=== PATIENT | female | born 1990 | race Caucasian/White ===

== ENCOUNTER 2017-08-25 15:03 | Emergency (ER) | payer SELFPAY ==
[~2017-08-25] VITALS: Ht 162.6 cm; Wt 52.2 kg
[~2017-08-25 15:03] MED LIST: ACET325T38 PO; AGM875T PO; CEFU500T PO; CEPH-38 PO; CEPH500C PO; CETI10CA PO; FRS325T PO; HYDR-3729 PO; IBP600T1 PO; MULT-241 PO; ONDA-42 SL; PREN1TAB19 PO; PROG50VI3 IM; SULF1TAB35 PO
--- OUTSIDE RECORDS SUMMARY | 2017-08-25 15:08 | XMS REPORT ---
Author JIMBO Urena Organization [employer] Address Unknown Phone Unavailable Care Team Providers Care Resolution Manager Name Role Phone JIMBO LAGOS CP Unavailable Allergies, Adverse Reactions, Alerts Substance Reaction Event Type Nitrofurantoin Info Not Available Drug Allergy Problems Problem Type Condition Code Onset Dates Condition Status Assessment Allergic rhinitis, unspecified allergic rhinitis type J30.9 Active Medications Medication Code System Code Instructions Start Date End Date Status Dosage Mirena [facility] [address]-99 not defined Flonase Allergy Relief [facility] [address]-38 50 MCG/ACT Nasally Once a day February 13, 2016 1 spray in each nostril Procedures Procedure Coding System Code Date Office Visit, Est Pt., Level 3 CPT-4 98386 February 13, 2016 Vital Signs Date/Time: February 13, 2016 Cardiac Monitoring Heart Rate 80 bpm Weight 105.4 lbs Height 64 in Blood Pressure Diastolic 60 mmHg Blood Pressure Systolic 98 mmHg Results No Known Results Summary Purpose eClinicalWorks Submission
--- OUTSIDE RECORDS SUMMARY | 2017-08-25 15:08 | XMS REPORT ---
Author Author ROME ELIZABETH Organization [facility] Address [address] [place] [address] Care Team Providers Care Lumber Kiln Operator Name Role Phone PETERELIZABETH Sainz Unavailable PROBLEMS Type Condition ICD9-CM Code OFA32-LW Code Onset Dates Condition Status SNOMED Code Problem Seasonal allergic rhinitis due to pollen J30.1 Active 40276132 Problem Dorsalgia of lumbar region M54.5 Active 687215350 Problem Cough R05 Active 65458731 Assessment Dorsalgia of lumbar region M54.5 May, Active 463838588 ALLERGIES Substance Reaction Event Type Date Status Nitrofurantoin Unknown Drug Allergy May, Active SOCIAL HISTORY No smoking Hx information available PLAN OF CARE VITAL SIGNS Height 64 in 2016-06-12 Weight 107.8 lbs 2016-06-12 Heart Rate 72 bpm 2016-06-12 Respiratory Rate 18 2016-06-12 BMI 18.50 kg/m2 2016-06-12 Blood pressure systolic 119 mmHg 2016-06-12 Blood pressure diastolic 78 mmHg 2016-06-12 MEDICATIONS Medication Instructions Dosage Frequency Start Date End Date Duration Status Ibuprofen 800 MG Orally Three times a day 1 tablet 8h 29 Mar, 2016 Active Flonase Allergy Relief 50 MCG/ACT Nasally Once a day 1 spray in each nostril 24h Jan, 7 days Active Mirena Active RESULTS No Results PROCEDURES Procedure Date Ordered Related Diagnosis Body Site Office Visit, Est Pt., Level 3 Jun 12, 2016 IMMUNIZATIONS No Known Immunizations
--- OUTSIDE RECORDS SUMMARY | 2017-08-25 15:08 | XMS REPORT ---
Author Author MICHAEL DUARTE Organization [employer] Address Unknown Phone Unavailable Care Team Providers Care Cloth Checker Name Role Phone MICHAEL DUARTE CP Unavailable Allergies, Adverse Reactions, Alerts Substance Reaction Event Type Nitrofurantoin Info Not Available Drug Allergy Problems Problem Type Condition Code Onset Dates Condition Status Problem examination or test, positive result V72.42 Active Problem Screening examination for venereal disease V74.5 Active Problem Other drug allergy 995.27 Active Assessment Dental caries K02.9 Active Assessment Encounter for dental examination Z01.20 Active Problem Unspecified otitis media 382.9 Active Problem Other specified symptom associated with female genital organs 625.8 Active Problem Abdominal pain, generalized 789.07 Active Problem Cervicalgia 723.1 Active Problem Supervision of normal first V22.0 Active Problem Urinary tract infection, site not specified 599.0 Active Problem Lumbago 724.2 Active Medications Medication Code System Code Instructions Start Date End Date Status Dosage Mirena [facility] [address]-33 not defined Procedures Procedure Coding System Code Date INTRAORL-PERIAPICAL 1 FILM 55975 CPT-4 D0220 May 29, 2015 EXTRAC ERUPTED TOOTH/EXPOSED ROOT CPT-4 D7140 May 29, 2015 LTD ORAL EVALUATION - PROBLEM FOCUS CPT-4 D0140 May 29, 2015 Vital Signs Date/Time: May 29, 2015 Blood Pressure Diastolic 73 mmHg Blood Pressure Systolic 106 mmHg Height 64 in Results No Known Results Summary Purpose [employer]ClinicalWorks Submission
--- OUTSIDE RECORDS SUMMARY | 2017-08-25 15:08 | XMS REPORT ---
Author Author JOSEPH MCGILL Organization [employer] Address Unknown Phone Unavailable Care Team Providers Care Disability Aide Name Role Phone JOSEPH MCGILL CP Unavailable Allergies No Known Allergies Problems No Known Problems Medications No Known Medications Results No Known Results Summary Purpose [employer] Submission
--- OUTSIDE RECORDS SUMMARY | 2017-08-25 15:09 | XMS REPORT ---
Author Author TERRIE AL [facility] Address Unknown Care Team Providers Care Remanufacturing Technician Name Role Phone TERRIE AL Unavailable PROBLEMS Type Condition ICD9-CM Code MCK39-HX Code Onset Dates Condition Status SNOMED Code Problem PTSD (post-traumatic stress disorder) F43.10 Active 35776290 Problem Bipolar 1 disorder, mixed, moderate F31.62 Active 89206057 Problem Cough R05 Active 41147200 Problem Seasonal allergic rhinitis due to pollen J30.1 Active 52710576 Problem Dorsalgia of lumbar region M54.5 Active 510566679 ALLERGIES Substance Reaction Event Type Date Status Nitrofurantoin Unknown Drug Allergy Jun, Active SOCIAL HISTORY No smoking Hx information available PLAN OF CARE Activity Details Follow Up 1 Week Reason:TE 13 AND 18 VITAL SIGNS Blood pressure systolic 122 mmHg 2016-07-18 Blood pressure diastolic 80 mmHg 2016-07-18 MEDICATIONS Medication Instructions Dosage Frequency Start Date End Date Duration Status Ibuprofen 800 MG Orally Three times a day 1 tablet 8h Mar, Active Amoxicillin 500 MG Orally Three times a day 1 capsule 8h 7 days Active Mirena Active Flonase Allergy Relief 50 MCG/ACT Nasally Once a day 1 spray in each nostril 24h Jan, 7 days Active RESULTS No Results PROCEDURES Procedure Date Ordered Related Diagnosis Body Site LTD ORAL EVALUATION - PROBLEM FOCUS Jul 18, 2016 INTRAORL-PERIAPICAL 1 FILM 90654 Jul 18, 2016 BITEWINGS - TWO FILMS Jul 18, 2016 INTRAORL-PERIAPICAL EA ADD FILM Jul 18, 2016 IMMUNIZATIONS No Known Immunizations
--- OUTSIDE RECORDS SUMMARY | 2017-08-25 15:09 | XMS REPORT ---
Author Author HANANE CHAWLA [facility] Address [address] [place] [address] Care Team Providers Care Internet Marketer Name Role Phone HANANE CHAWLA Unavailable PROBLEMS Type Condition ICD9-CM Code DFK88-SC Code Onset Dates Condition Status SNOMED Code Problem PTSD (post-traumatic stress disorder) F43.10 Active 92453286 Problem Bipolar 1 disorder, mixed, moderate F31.62 Active 64030612 Problem Cough R05 Active 02090915 Problem Seasonal allergic rhinitis due to pollen J30.1 Active 71701565 Problem Dorsalgia of lumbar region M54.5 Active 009344054 ALLERGIES Substance Reaction Event Type Date Status Nitrofurantoin Unknown Drug Allergy Aug, Active SOCIAL HISTORY Never Assessed PLAN OF CARE Activity Details Follow Up prn Reason: VITAL SIGNS Height 64 in 2016-09-09 Weight 113 lbs 2016-09-09 Temperature 98.1 degrees Fahrenheit 2016-09-09 Heart Rate 86 bpm 2016-09-09 Respiratory Rate 16 2016-09-09 BMI 19.39 kg/m2 2016-09-09 Blood pressure systolic 100 mmHg 2016-09-09 Blood pressure diastolic 70 mmHg 2016-09-09 MEDICATIONS Medication Instructions Dosage Frequency Start Date End Date Duration Status Amoxicillin 500 MG Orally 3 times a day 1 capsule 8h Aug, Aug, 07 days Active Pseudoephedrine HCl 60 mg Orally every 6 hrs 1 tablet as needed 6h Aug, Active Mirena Active Ibuprofen 800 MG Orally Three times a day 1 tablet 8h Aug, November, 90 days Active RESULTS No Results PROCEDURES No Known procedures IMMUNIZATIONS No Known Immunizations MEDICAL (GENERAL) HISTORY Type Description Date Medical History Asthma Medical History Arthritis Medical History back trouble Medical History neck pain Medical History depression Medical History PTSD Medical History bipolar/mood disorder Medical History anxiety Medical History Bulimia Nervosa Hospitalization History childbirth x 2
--- OUTSIDE RECORDS SUMMARY | 2017-08-25 15:09 | XMS REPORT ---
Author Author JACE FISH [facility] Address [address] [place] [address] Care Team Providers Care Agronomy Professor Name Role Phone JACE FISH Unavailable PROBLEMS Type Condition ICD9-CM Code BSW40-DG Code Onset Dates Condition Status SNOMED Code Problem PTSD (post-traumatic stress disorder) F43.10 Active 74819347 Problem Bipolar 1 disorder, mixed, moderate F31.62 Active 31969813 Problem Cough R05 Active 75149327 Problem Seasonal allergic rhinitis due to pollen J30.1 Active 70341080 Problem Dorsalgia of lumbar region M54.5 Active 071797742 ALLERGIES Substance Reaction Event Type Date Status Nitrofurantoin Unknown Drug Allergy Sep, Active SOCIAL HISTORY Never Assessed PLAN OF CARE Activity Details Follow Up prn Reason: VITAL SIGNS Height 64 in 2016-09-27 Weight 107.4 lbs 2016-09-27 Temperature 98.4 degrees Fahrenheit 2016-09-27 Heart Rate 82 bpm 2016-09-27 Respiratory Rate 18 2016-09-27 BMI 18.43 kg/m2 2016-09-27 Blood pressure systolic 108 mmHg 2016-09-27 Blood pressure diastolic 64 mmHg 2016-09-27 MEDICATIONS Medication Instructions Dosage Frequency Start Date End Date Duration Status Ibuprofen 800 MG Orally Three times a day 1 tablet 8h Aug, November, 90 days Active Mirena Active Cetirizine HCl 10 mg Orally Once a day 1 tablet 24h Sep, Active Zofran 8 MG Orally Once a day as needed for nausea 1 tablet Sep, 07 days Active Pseudoephedrine HCl 60 mg Orally every 6 hrs 1 tablet as needed 6h Aug, Active RESULTS Name Result Date Reference Range INFLUENZA A & B (IN HOUSE) 2016-09-27 INFLUENZA A negative INFLUENZA B negative Control + Lot # [id number] Exp date 2018 06 08 PROCEDURES Procedure Date Ordered Result Body Site INFLUENZA ASSAY W/OPTIC September 27, 2016 IMMUNIZATIONS No Known Immunizations MEDICAL (GENERAL) HISTORY Type Description Date Medical History Asthma Medical History Arthritis Medical History back trouble Medical History neck pain Medical History depression Medical History PTSD Medical History bipolar/mood disorder Medical History anxiety Medical History Bulimia Nervosa Hospitalization History childbirth x 2
--- OUTSIDE RECORDS SUMMARY | 2017-08-25 15:09 | XMS REPORT ---
Author Author TERRI GODFREY Organization [employer] Address Unknown Phone Unavailable Care Team Providers Care Professor Of Literature Name Role Phone TERRI GODFREY CP Unavailable Allergies, Adverse Reactions, Alerts Substance Reaction Event Type Nitrofurantoin Info Not Available Drug Allergy Problems Problem Type Condition Code Onset Dates Condition Status Assessment Dorsalgia, unspecified M54.9 Active Assessment Anesthesia of skin R20.0 Active Medications Medication Code System Code Instructions Start Date End Date Status Dosage Flonase Allergy Relief [facility] [address]-04 50 MCG/ACT Nasally Once a day February 13, 2016 1 spray in each nostril Mirena NDC 0 not defined Mobic [facility] [address]-80 7.5 MG Orally twice a day Mar 12, 2016 Apr 11, 2016 1 tablet Procedures Procedure Coding System Code Date Office Visit, Est Pt., Level 3 CPT-4 21128 Mar 12, 2016 Vital Signs Date/Time: Mar 12, 2016 Cardiac Monitoring Heart Rate 72 bpm Weight 98.2 lbs Height 64 in BMI 16.85 Index Blood Pressure Diastolic 56 mmHg Blood Pressure Systolic 94 mmHg Results No Known Results Summary Purpose eClinicalWorks Submission
--- OUTSIDE RECORDS SUMMARY | 2017-08-25 15:09 | XMS REPORT ---
Author Author ELIZABETH PETER Organization [facility] Address [address] [place] [address] Care Team Providers Care Mine Development Engineer Name Role Phone PETER ELIZABETH Unavailable PROBLEMS Type Condition ICD9-CM Code OJD14-QF Code Onset Dates Condition Status SNOMED Code Problem PTSD (post-traumatic stress disorder) F43.10 Active 58513557 Problem Bipolar 1 disorder, mixed, moderate F31.62 Active 86263693 Problem Cough R05 Active 76607834 Problem Seasonal allergic rhinitis due to pollen J30.1 Active 94814174 Problem Dorsalgia of lumbar region M54.5 Active 902149458 ALLERGIES Unknown Allergies SOCIAL HISTORY No smoking Hx information available PLAN OF CARE VITAL SIGNS Height 64 in 2016-08-27 Weight 110 lbs 2016-08-27 Temperature 98.0 degrees Fahrenheit 2016-08-27 Heart Rate 70 bpm 2016-08-27 Respiratory Rate 18 2016-08-27 BMI 18.88 kg/m2 2016-08-27 Blood pressure systolic 124 mmHg 2016-08-27 Blood pressure diastolic 80 mmHg 2016-08-27 MEDICATIONS Medication Instructions Dosage Frequency Start Date End Date Duration Status Ibuprofen 800 MG Orally Three times a day 1 tablet 8h Mar, Active Mirena Active RESULTS No Results PROCEDURES No Known procedures IMMUNIZATIONS No Known Immunizations
--- OUTSIDE RECORDS SUMMARY | 2017-08-25 15:09 | XMS REPORT ---
Author Author MICHAEL DUARTE [facility] [employer] Address Unknown Phone Unavailable Care Team Providers Care Edge Trimming Machine Operator Name Role Phone MICHAEL DUARTE CP Unavailable Allergies, Adverse Reactions, Alerts Substance Reaction Event Type Nitrofurantoin Info Not Available Drug Allergy Problems Problem Type Condition Code Onset Dates Condition Status Assessment Dental caries K02.9 Active Medications Medication Code System Code Instructions Start Date End Date Status Dosage [place] [facility] [address]-35 5-325 MG Orally every 6 hrs February 19, 2016January 1 tablet as needed Flonase Allergy Relief [facility] [address]-47 50 MCG/ACT Nasally Once a day February 13, 2016 1 spray in each nostril Mirena [facility] [address]-29 not defined Procedures Procedure Coding System Code Date EXTRAC ERUPTED TOOTH/EXPOSED ROOT CPT-4 D7140 February 19, 2016 Vital Signs Date/Time: February 19, 2016 Blood Pressure Diastolic 65 mmHg Blood Pressure Systolic 114 mmHg Height 64 in Results No Known Results Summary Purpose eClinicalWorks Submission
--- OUTSIDE RECORDS SUMMARY | 2017-08-25 15:09 | XMS REPORT ---
Author Author ELIZABETH PETER Organization [employer] Address Unknown Phone Unavailable Care Team Providers Care Labor Relations Officer Name Role Phone ELIZABETH PETER CP Unavailable Allergies No Known Allergies Problems No Known Problems Medications Medication Code System Code Instructions Start Date End Date Status Dosage Ibuprofen [facility] [address]-50 800 MG Orally Three times a day Apr 24, 2016 1 tablet Results No Known Results Summary Purpose eClinicalWorks Submission
--- OUTSIDE RECORDS SUMMARY | 2017-08-25 15:09 | XMS REPORT ---
Author Author IRENE Maldonado Organization [facility] Address [address] [place] [address] Care Team Providers Care Smokehouse Worker Name Role Phone Joel IRENE Unavailable PROBLEMS Type Condition ICD9-CM Code RUD16-WK Code Onset Dates Condition Status SNOMED Code Problem PTSD (post-traumatic stress disorder) F43.10 Active 10277574 Problem Bipolar 1 disorder, mixed, moderate F31.62 Active 23552935 Problem Cough R05 Active 71361846 Problem Seasonal allergic rhinitis due to pollen J30.1 Active 80162191 Problem Dorsalgia of lumbar region M54.5 Active 226198386 ALLERGIES No Information SOCIAL HISTORY Never Assessed PLAN OF CARE VITAL SIGNS MEDICATIONS Medication Instructions Dosage Frequency Start Date End Date Duration Status HydrOXYzine HCl 25 MG Orally every 8 hrs 1 tablet as needed 8h November, 30 day(s) Active RESULTS No Results PROCEDURES No Known procedures IMMUNIZATIONS No Known Immunizations MEDICAL (GENERAL) HISTORY Type Description Date Medical History Asthma Medical History Arthritis Medical History back trouble Medical History neck pain Medical History depression Medical History PTSD Medical History bipolar/mood disorder Medical History anxiety Medical History Bulimia Nervosa Hospitalization History childbirth x 2
--- OUTSIDE RECORDS SUMMARY | 2017-08-25 15:09 | XMS REPORT ---
Author Author ROME ELIZABETH Organization [facility] Address [address] [place] [address] Care Team Providers Care Facing Cutting Machine Operator Name Role Phone PETERELIZABETH Sainz Unavailable PROBLEMS Type Condition ICD9-CM Code IQO36-UG Code Onset Dates Condition Status SNOMED Code Problem PTSD (post-traumatic stress disorder) F43.10 Active 87492781 Problem Bipolar 1 disorder, mixed, moderate F31.62 Active 78360247 Problem Cough R05 Active 82464833 Problem Seasonal allergic rhinitis due to pollen J30.1 Active 68130286 Problem Dorsalgia of lumbar region M54.5 Active 408969057 ALLERGIES Substance Reaction Event Type Date Status Nitrofurantoin Unknown Drug Allergy Sep, Active SOCIAL HISTORY Never Assessed PLAN OF CARE Activity Details Follow Up prn Reason: VITAL SIGNS Height 64 in 2016-10-02 Weight 109 lbs 2016-10-02 Temperature 98.2 degrees Fahrenheit 2016-10-02 Heart Rate 90 bpm 2016-10-02 Respiratory Rate 20 2016-10-02 Oximetry 99 % 2016-10-02 BMI 18.71 kg/m2 2016-10-02 Blood pressure systolic 96 mmHg 2016-10-02 Blood pressure diastolic 60 mmHg 2016-10-02 MEDICATIONS Medication Instructions Dosage Frequency Start Date End Date Duration Status Ibuprofen 800 MG Orally Three times a day 1 tablet 8h Aug, November, 90 days Active Azithromycin 250 MG Orally Once a day 2 tablets on the first day, then 1 tablet daily for 4 days 24h Sep, Sep, 5 day(s) Active Mirena Active ProAir HFA 108 (90 Base) MCG/ACT Inhalation every 4 hrs 2 puffs as needed 4h Sep, 10 days Active RESULTS Name Result Date Reference Range Xray : Chest (IN HOUSE) 2016-10-02 PROCEDURES Procedure Date Ordered Result Body Site MEASURE BLOOD OXYGEN LEVEL October 02, 2016 CHEST X-RAY October 02, 2016 IMMUNIZATIONS No Known Immunizations MEDICAL (GENERAL) HISTORY Type Description Date Medical History Asthma Medical History Arthritis Medical History back trouble Medical History neck pain Medical History depression Medical History PTSD Medical History bipolar/mood disorder Medical History anxiety Medical History Bulimia Nervosa Hospitalization History childbirth x 2
--- OUTSIDE RECORDS SUMMARY | 2017-08-25 15:09 | XMS REPORT ---
Author Author ELIZABETH PETER Organization [employer] Address Unknown Phone Unavailable Care Team Providers Care Labor Relations Director Name Role Phone ELIZABETH PETER CP Unavailable Allergies, Adverse Reactions, Alerts Substance Reaction Event Type Nitrofurantoin Info Not Available Drug Allergy Problems Problem Type Condition Code Onset Dates Condition Status Assessment Family history of cancer Z80.9 Active Assessment Pain in thoracic spine M54.6 Active Assessment Routine health maintenance Z00.00 Active Assessment Other chronic pain G89.29 Active Medications Medication Code System Code Instructions Start Date End Date Status Dosage Mirena NDC 0 not defined Ibuprofen [facility] [address]-14 800 MG Orally Three times a day Apr 24, 2016 1 tablet Flonase Allergy Relief [facility] [address]-33 50 MCG/ACT Nasally Once a day February 13, 2016 1 spray in each nostril Procedures Procedure Coding System Code Date Office Visit, Est Pt., Level 3 CPT-4 13002 Apr 24, 2016 Vital Signs Date/Time: Apr 24, 2016 Cardiac Monitoring Heart Rate 80 bpm Weight 108 lbs Height 64 in BMI 18.54 Index Blood Pressure Diastolic 64 mmHg Blood Pressure Systolic 98 mmHg Results No Known Results Summary Purpose eClinicalWorks Submission
--- OUTSIDE RECORDS SUMMARY | 2017-08-25 15:09 | XMS REPORT ---
Author Author PETERNEERAJELIZABETH Organization [facility] Address [address] [place] [address] Care Team Providers Care Storeroom Keeper Name Role Phone PETERNEEARJ SainzELE Unavailable PROBLEMS Type Condition ICD9-CM Code ENR60-YD Code Onset Dates Condition Status SNOMED Code Assessment Routine health maintenance Z00.00 Mar, Active 899204644 ALLERGIES No Known Allergies SOCIAL HISTORY No smoking Hx information available PLAN OF CARE VITAL SIGNS MEDICATIONS No Known Medications RESULTS Name Result Date Reference Range THYROID ANALYZER 2016-04-25 TSH 2.340 0.450-4.500 A1C 2016-04-25 Hemoglobin A1c 5.4 4.8-5.6 CBC 2016-04-25 WBC 8.9 3.4-10.8 RBC 4.47 3.77-5.28 Hemoglobin 14.0 11.1-15.9 Hematocrit 40.8 34.0-46.6 MCV 91 79-97 MCH 31.3 26.6-33.0 MCHC 34.3 31.5-35.7 RDW 13.1 12.3-15.4 Platelets 262 150-379 Neutrophils 55 Lymphs 37 Monocytes 6 Eos 2 Basos 0 Neutrophils (Absolute) 4.9 1.4-7.0 Lymphs (Absolute) 3.2 0.7-3.1 Monocytes(Absolute) 0.6 0.1-0.9 Eos (Absolute) 0.1 0.0-0.4 Baso (Absolute) 0.0 0.0-0.2 Immature Granulocytes 0 Immature Grans (Abs) 0.0 0.0-0.1 LIPID PANEL 2016-04-25 Cholesterol, Total 148 100-199 Triglycerides 80 0-149 HDL Cholesterol 42 >39 VLDL Cholesterol Solomon 16 5-40 LDL Cholesterol Calc 90 0-99 CMP 2016-04-25 Glucose, Serum 86 65-99 BUN 11 6-20 Creatinine, Serum 0.88 0.57-1.00 eGFR If NonAfricn Am 93 >59 eGFR If Africn Am 107 >59 BUN/Creatinine Ratio 13 8-20 Sodium, Serum 140 134-144 Potassium, Serum 4.4 3.5-5.2 Chloride, Serum 104 97-108 Carbon Dioxide, Total 23 18-29 Calcium, Serum 9.3 8.7-10.2 Protein, Total, Serum 6.5 6.0-8.5 Albumin, Serum 4.3 3.5-5.5 Globulin, Total 2.2 1.5-4.5 A/G Ratio 2.0 1.1-2.5 Bilirubin, Total 0.9 0.0-1.2 Alkaline Phosphatase, S 64 39-117 AST (SGOT) 15 0-40 ALT (SGPT) 11 0-32 PROCEDURES Procedure Date Ordered Related Diagnosis Body Site ASSAY THYROID STIM HORMONE Apr 25, 2016 GLYCATED HEMOGLOBIN TEST Apr 25, 2016 LIPID PANEL Apr 25, 2016 COMPLETE CBC W/AUTO DIFF WBC Apr 25, 2016 VENIPUNCT, ROUTINE* Apr 25, 2016 COMPREHEN METABOLIC PANEL Apr 25, 2016 IMMUNIZATIONS No Known Immunizations
--- OUTSIDE RECORDS SUMMARY | 2017-08-25 15:09 | XMS REPORT ---
Author Author ELIZABETH PETER Organization [employer] Address Unknown Phone Unavailable Care Team Providers Care Restaurant Front Manager Name Role Phone ELIZABETH PETER CP Unavailable Allergies No Known Allergies Problems No Known Problems Medications No Known Medications Results No Known Results Summary Purpose eClinicalWorks Submission
--- OUTSIDE RECORDS SUMMARY | 2017-08-25 15:09 | XMS REPORT ---
Author Author ROME ELIZABETH Organization [facility] Address [address] [place] [address] Care Team Providers Care Airline Managerial Supervisor Name Role Phone PETERELIZABETH Sainz Unavailable PROBLEMS Type Condition ICD9-CM Code LPZ57-FJ Code Onset Dates Condition Status SNOMED Code Problem PTSD (post-traumatic stress disorder) F43.10 Active 72916240 Problem Bipolar 1 disorder, mixed, moderate F31.62 Active 64218530 Problem Cough R05 Active 61061325 Problem Seasonal allergic rhinitis due to pollen J30.1 Active 59717438 Problem Dorsalgia of lumbar region M54.5 Active 824556888 ALLERGIES Substance Reaction Event Type Date Status Nitrofurantoin Unknown Drug Allergy Aug, Active SOCIAL HISTORY Never Assessed PLAN OF CARE Activity Details Follow Up prn Reason: VITAL SIGNS Height 64 in 2016-08-28 Weight 110 lbs 2016-08-28 Temperature 98 degrees Fahrenheit 2016-08-28 Heart Rate 70 bpm 2016-08-28 Respiratory Rate 16 2016-08-28 BMI 18.88 kg/m2 2016-08-28 Blood pressure systolic 88 mmHg 2016-08-28 Blood pressure diastolic 50 mmHg 2016-08-28 MEDICATIONS Medication Instructions Dosage Frequency Start Date End Date Duration Status Ibuprofen 800 MG Orally Three times a day 1 tablet 8h Mar, Active Ibuprofen 800 MG Orally Three times a day 1 tablet 8h Aug, November, 90 days Active Mirena Active RESULTS No Results [...]
--- OUTSIDE RECORDS SUMMARY | 2017-08-25 15:09 | XMS REPORT ---
Author Author TERRIE AL [facility] Address Unknown Care Team Providers Care Director Public Policy Name Role Phone TERRIE AL Unavailable PROBLEMS Type Condition ICD9-CM Code [id number] Code Onset Dates Condition Status SNOMED Code Problem PTSD (post-traumatic stress disorder) F43.10 Active 21890418 Problem Bipolar 1 disorder, mixed, moderate F31.62 Active 83753753 Problem Cough R05 Active 48047467 Problem Seasonal allergic rhinitis due to pollen J30.1 Active 57914849 Problem Dorsalgia of lumbar region M54.5 Active [id number] ALLERGIES No Known Allergies SOCIAL HISTORY No smoking Hx information available PLAN OF CARE Activity Details Follow Up prn Reason:michael/hygiene VITAL SIGNS MEDICATIONS No Known Medications RESULTS No Results PROCEDURES Procedure Date Ordered Related Diagnosis Body Site EXTRAC ERUPTED TOOTH/EXPOSED ROOT Jul 25, 2016 IMMUNIZATIONS No Known Immunizations
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
[2017-08-25] MEDS ORDERED: AMOX500C2 PO (15:34)
--- NOTE | 2017-08-25 15:34 | ED EENT ---
History of Present Illness General Stated Complaint: DENTAL PAIN Source: patient Exam Limitations: no limitations History of Present Illness Date Seen by Provider: Aug 25, 2017 Time Seen by Provider: 15:30 Initial Comments Left lower dental pain for 2 months worse for 2 weeks. No swelling. Last menstrual period 07/27/17 and she thinks she might be because she took a home test last night and it was positive. She does not have any abdominal cramping or abdominal pain or vaginal discharge or vaginal bleeding Timing/Duration: this morning Severity: moderate Allergies and Home Medications Allergies Coded Allergies: nitrofurantoin (Verified Allergy, Unknown, RASH, 02/13/15) Uncoded Allergies: bandaids (Allergy, Unknown, 02/24/15) Home Medications Cefuroxime Axetil 500 Mg Tablet, 500 MG PO BID, #14 Prescribed by: HEIDI STAHL on 03/13/16 1611 Ferrous Sulfate 325 Mg Tab, 325 MG PO DAILY, #30 Prescribed by: ARASELI MANRIQUE on 02/23/15 1408 Hydrocodone/Acetaminophen 1 Each Tablet, 1 EACH PO Q6H, #10 Prescribed by: ARASELI MANRIQUE on 02/24/15 1051 Ibuprofen 600 Mg Tab, 600 MG PO Q6H, #40 Prescribed by: ARASELI MANRIQUE on 02/23/15 1408 Vit/Fe Fumarate/Fa 1 Each Tablet, 1 EACH PO DAILY, (Reported) Review of Systems Constitutional: see HPI Eyes: No Symptoms Reported Ears: No Symptoms Reported Nose: no symptoms reported Mouth: see HPI, pain Throat: no symptoms reported Respiratory: no symptoms reported Cardiovascular: no symptoms reported Musculoskeletal: no symptoms reported Skin: no symptoms reported Neurological: No Symptoms Reported Hematologic/Lymphatic: No Symptoms Reported Immunological/Allergic: no symptoms reported Past Glpfvgn-Lernym-Idlnkh Hx Patient Social History Type Used: Cigarettes Recent Foreign Travel: No Contact w/Someone Who Travel: No Recent Hopitalizations: No Immunizations Up To Date Tetanus Booster (TDap): More than 5yrs PED Vaccines UTD: Yes Respiratory Respiratory Disorders: Asthma Reproductive System Hx Reproductive Disorders: No Sexually Transmitted Disease: Yes (hx trich treated) Musculoskeletal Musculoskeletal Disorders: Arthritis, Chronic Back Pain Psychosocial Behavioral Health Disorders: Eating Disorder, Sleep Difficulties, Anxiety, Bipolar, Depression Integumentary Skin/Integumentary Disorders: Eczema Blood Transfusions Adverse Reaction to a Blood Tr: No Family Medical History Family Medial History: Alcoholism 19 FATHER 19 MOTHER (uncles) Arthritis 19 MOTHER Asthma 19 MOTHER Cardiovascular disease 19 MOTHER (heart murmur) Headache disorder 19 MOTHER Hypertension 19 MOTHER Neoplasm 19 MOTHER Psychosocial problem 19 MOTHER Respiratory disorder 19 MOTHER (COPD) Seizure disorder 19 MOTHER No Family History of: AIDS Abdominal aortic aneurysm [place]'s disease Alzheimer's disease Aphasia Cancer of mouth Cataracts Colon cancer Completed stroke Congenital disease Congenital heart disease Coronary thrombosis Cystic fibrosis Deafness or hearing loss Dementia Diabetes mellitus Drug abuse Dysphasia Fibrocystic disease of breast Gastroenteritis Glaucoma Hypercholesterolemia Infertility Kidney disease Myocardial infarction Not obtainable due to adoption Osteoporosis Parkinson's disease Prostate cancer Severe allergy Thyroid disease Tuberculosis Visual disorder Physical Exam General Appearance: WD/WN, no apparent distress Eyes: bilateral eye normal inspection, bilateral eye PERRL, bilateral eye EOMI Ears: bilateral ear auricle normal, bilateral ear canal normal, bilateral ear TM normal Mouth/Throat: pharynx normal, other (left lower molars where she complains of pain are carious and fractured but without any fluctuance to suggest abscess that would be drainable. We will place her on antibiotics and have her use Tylenol and since she is asymptomatic in regards to she can follow-up with primary care to have a test done this is not appropriate for the emergency room since she is without symptoms) Neck: non-tender, full range of motion, No lymphadenopathy (R), No lymphadenopathy (L) Respiratory: normal breath sounds, no respiratory distress, no accessory muscle use Gastrointestinal: normal bowel sounds, non tender, soft Neurologic/Psychiatric: alert, normal mood/affect, oriented x 3 Skin: normal color, warm/dry Departure Impression Impression: Primary Impression: Pain due to dental caries Disposition: 01 HOME, SELF-CARE Condition: Stable Departure-Patient Inst. Decision time for Depature: 15:33 Referrals: NO,LOCAL PHYSICIAN (PCP/Family) Primary Care Physician Patient Instructions: Dental Pain Add. Discharge Instructions: 1. Follow-up with your regular doctor in regards to the possibility of . Return to the emergency room for any abdominal pain or other concerns. Antibiotic as directed for the dental pain. Tylenol for pain as this would be safe in . See the [facility] on [address] to make an appointment to have your dental cavities evaluated. You may also use [id number] Orajel for additional pain relief Scripts Amoxicillin (Amoxicillin) 500 Mg Capsule 500 MG PO TID, #21 CAP Prov: STAHL,PETER J [employer] 08/25/17 Images Mouth/Nose 1 - Caries, Fracture Tooth HEIDI STAHL APRN Aug 25, 2017 15:34
[2017-08-25 15:38] VITALS: BP 138/103
== END 2017-08-25 15:38 | disposition home or self-care (01) ==
LOC: EDUNIT# 15:03 → ER 15:05
DX: K02.9 Dental caries, unspecified (principal); J45.909 Unspecified asthma, uncomplicated; F41.9 Anxiety disorder, unspecified; F31.9 Bipolar disorder, unspecified; Z82.49 Family history of ischemic heart disease and other diseases of the circulatory system; Z88.1 Allergy status to other antibiotic agents
CPT/HCPCS: 99283

== ENCOUNTER → 2017-12-02 | Outpatient (CLI) | payer MEDICAID ==
[~2017-12-02] MED LIST changes: +AMOX500C2 PO
--- NOTE | 2017-12-02 13:46 | Diagnostic Imaging Report ---
INDICATION: . TECHNIQUE: Multiple real-time grayscale images were obtained over the gravid uterus. COMPARISON: There are no prior studies available for comparison. FINDINGS: There is a gestational sac within the uterus containing a single live fetus in variable presentation. heart motion was noted and a rate of 156 BPM was recorded. There were no abnormalities identified, although the cord insertion was difficult to visualize due to lie. The growth parameters are fairly uniform. The placenta is posterior and there is no previa. The amniotic fluid volume is within normal limits. The cervix was identified and measures 4 cm In length. IMPRESSION: 1. There is a single live fetus of approximately 18 weeks 3 days gestation +/-1.5 weeks. The EDC is May 02, 2018. 2. There were no abnormalities identified, although the cord insertion was not well visualized. It may prove worthwhile to have a short-term (4-6 week) followup exam for further evaluation of the cord insertion. 3. The growth parameters are fairly uniform. Biometrical measurements are as follows: Biparietal 3.9 cm, age 18 weeks 0 days. Head circumference 14.9 cm, age 18 weeks 1 days. Abdominal circumference 13.2 cm, age 18 weeks 6 days. Femur length 2.8 cm, age 18 weeks 4 days. Sonographic estimate age: 18 weeks 3 days. Sonographic estimated date of delivery: 05/02/18. Estimated Weight: 244 gm (+/- 36 gm). LMP percentile: 34%. heart rate: 156 beats per minute. number: 1 of 1. Dictated by: Dictated on workstation # [id number]
== END ==
LOC: RAD 10:34
PROVIDERS: ATTEND Obstetrics & Gynecology
DX: Z36.89 Encounter for other specified antenatal screening (principal); Z3A.18 18 weeks gestation of pregnancy
CPT/HCPCS: 76805

== ENCOUNTER 2018-03-19 12:45 | Observation (INO) | payer MEDICAID ==
[~2018-03-19] VITALS: Ht 160 cm; Wt 58.2 kg
[2018-03-19 13:00] VITALS: BP 114/70
[2018-03-19 13:54] LABS: BILIRUBIN,URINE NEGATIVE (NEGATIVE); CLARITY,URINE SLIGHTLY CLOUDY; COLOR,URINE YELLOW; GLUCOSE, URINE (UA) NEGATIVE (NEGATIVE); KETONES,URINE NEGATIVE (NEGATIVE); LEUKOCYTE ESTERASE ,URINE 1+ (NEGATIVE); NITRITE,URINE NEGATIVE (NEGATIVE); PH,URINE 7 (5-9); PROTEIN,URINE NEGATIVE (NEGATIVE); UROBILINOGEN,URINE 1 MG/DL (NORMAL)
[2018-03-19 14:07] LABS: BACTERIA,URINE LARGE /HPF
[2018-03-19] MEDS ORDERED: LACTATED RINGERS 1,000 ML IV ONE (14:45)
[2018-03-19] MEDS ORDERED: cefTRIAXone FOR IV USE 1,000 MG in NS (IVPB) 50 ML IV ONE (14:45)
[2018-03-19] MEDS ORDERED: CEPH-507 PO (15:31)
--- NOTE | 2018-03-19 15:33 | Discharge Inst-Women's Service ---
Discharge Inst-Women's Serv Depart Medication/Instructions New, Converted or Re-Newed RX: Transmitted to Pharmacy Final Diagnosis UTI Threatened labor history of labor/delivery Consults/Follow Up Additional Follow Up: Yes (as scheduled) Activity Activity: Activity as Tolerated Driving Instructions: You May Drive NO SMOKING: NO SMOKING Nothing Inside Vagina: No Douching, No Comunas, No Tampons Diet Discharge Diet: No Restrictions Return to The Hospital For: contractions greater than 6 times per hour Symptoms to Report to : Fever Over 101 Degrees F, Urination Difficulty For Any Problems or Questions: Contact Your Physician ARASELI MANRIQUE DO Mar 19, 2018 15:33
[2018-03-19] MEDS ORDERED: morphine INJ 10 MG/ML 1ML (SYR OR VIAL) IVP PRN (15:45)
[2018-03-19] MEDS ORDERED: NICOTINE 14 MG (NICODERM) PATCH TD NR (15:45)
[2018-03-19] MEDS ORDERED: predniSONE 20 MG TAB PO NR (15:45)
--- NOTE | 2018-03-19 15:46 | History & Physical-OB/GYN ---
History of Present Illness History of Present Illness Reason for visit/HPI contractions history of labor and delivery Date of Admission 03/19/18 Date Seen by Provider: Mar 19, 2018 Time Seen by Provider: 15:45 I consulted on this patient on 03/19/18 15:45 Attending Physician Araseli Manrique DO Admitting Physician [place] Consult Allergies and Home Medications Allergies Coded Allergies: nitrofurantoin (Verified Allergy, Unknown, RASH, 02/13/15) Uncoded Allergies: bandaids (Allergy, Unknown, 02/24/15) Home Medications Albuterol Sulfate 1 Puff Puff, 2 PUFF IH Q4H 1 PUFF = 90 MCG Prescribed by: ARASELI MANRIQUE on 03/20/18 1052 Nicotine 1 Each Patch.td24, 14 MG TD DAILY Prescribed by: ARASELI MANRIQUE on 03/20/18 1054 Past Sjwifcd-Jpujsv-Ubffjt Hx Patient Social History Smoking Status: Current Everyday Smoker Type Used: Cigarettes Physical Abuse Screen: No Sexual Abuse: No Recent Foreign Travel: No Contact w/other who traveled: No Recent Hopitalizations: No Recent Infectious Disease Expo: No Immunizations Up To Date Tetanus Booster (TDap): More than 5yrs Pediatric: Yes Surgeries No Respiratory Yes Cardiovascular No Neurological No Reproductive System Expected Date of Delivery: Apr 30, 2018 Hx : 3 Hx Para: 2 Hx Total # of Abortions (Spona: 0 Hx Reproductive Disorders: No Sexually Transmitted Disease: Yes (hx trich treated) Gastrointestinal No Musculoskeletal Yes (neck pain, osteopenia) Arthritis, Chronic Back Pain Endocrine History of Endocrine Disorders: No HEENT History of HEENT Disorders: No Cancer No Did You Recieve Any Treatments: No Psychosocial History of Psychiatric Problem: Yes Behavioral Health Disorders: Eating Disorder, Sleep Difficulties, Anxiety, Bipolar, Depression Integumentary History of Skin or Integumenta: Yes Skin/Integumentary Disorders: Eczema Blood Transfusions History of Blood Disorders: No Adverse Reaction to a Blood Tr: No Family Medical History Family Hx: Alcoholism 19 FATHER 19 MOTHER (uncles) Arthritis 19 MOTHER Asthma 19 MOTHER Cardiovascular disease 19 MOTHER (heart murmur) Headache disorder 19 MOTHER Hypertension 19 MOTHER Neoplasm 19 MOTHER Psychosocial problem 19 MOTHER Respiratory disorder 19 MOTHER (COPD) Seizure disorder 19 MOTHER No Family History of: AIDS Abdominal aortic aneurysm [place]'s disease Alzheimer's disease Aphasia Cancer of mouth Cataracts Colon cancer Completed stroke Congenital disease Congenital heart disease Coronary thrombosis Cystic fibrosis Deafness or hearing loss Dementia Diabetes mellitus Drug abuse Dysphasia Fibrocystic disease of breast Gastroenteritis Glaucoma Hypercholesterolemia Infertility Kidney disease Myocardial infarction Not obtainable due to adoption Osteoporosis Parkinson's disease Prostate cancer Severe allergy Thyroid disease Tuberculosis Visual disorder Physical Exam Physical Exam Vital Signs Capillary Refill : Labs Microbiology 03/19/18 Urine Culture - Final, Complete Streptococcus mitis group ARASELI MANRIQUE DO Mar 19, 2018 15:46
[2018-03-19] MEDS: RT-ALBUTEROL SULF 2.5 MG/3 ML PRE-MIX VIAL INH SCH ×3 (16:00→22:17)
[2018-03-19] MEDS: ACETAMINOPHEN 500 MG TAB (TYLENOL) PO PRN (16:06)
[2018-03-19 16:24] LABS: BASOPHILS % (AUTO) 0 % (0-10); EOSINOPHILS # (AUTO) 0.2 10^3/uL (0.0-0.3); EOSINOPHILS % (AUTO) 1 % (0-10); HEMATOCRIT 27 % (35-52); HEMOGLOBIN 9.3 G/DL (11.5-16.0); LYMPHOCYTES # (AUTO) 2.6 X 10^3 (1.0-4.0); LYMPHOCYTES % (AUTO) 20 % (12-44); MEAN CORPUSCULAR HEMOGLOBIN 31 PG (25-34); MEAN CORPUSCULAR HGB CONC 34 G/DL (32-36); MEAN CORPUSCULAR VOLUME 90 FL (80-99); MEAN PLATELET VOLUME 10.3 FL (7.4-10.4); MONOCYTES # (AUTO) 0.7 X 10^3 (0.0-1.0); MONOCYTES % (AUTO) 6 % (0-12); NEUTROPHILS # (AUTO) 9.5 X 10^3 (1.8-7.8); NEUTROPHILS % (AUTO) 73 % (42-75); PLATELET COUNT 286 10^3/uL (130-400); RED BLOOD COUNT 3.04 10^6/uL (4.35-5.85); RED CELL DISTRIBUTION WIDTH 13.5 % (10.0-14.5); WHITE BLOOD COUNT 13.1 10^3/uL (4.3-11.0)
[2018-03-19] MEDS: guaiFENesin (MUCINEX) 600 MG TAB PO SCH (17:21)
[2018-03-19] MEDS: PROMETHAZINE/ CODEINE SYRUP 5 ML UDC PO PRN (17:22)
[2018-03-19] MEDS: D5 LR IV SOLUTION 1,000 ML IV SCH (17:24)
[2018-03-19 17:30] VITALS: BP 107/51
[2018-03-19 20:30] VITALS: BP 112/53
[2018-03-20] VITALS: BP 103/55
[2018-03-20] MEDS: ACETAMINOPHEN 500 MG TAB (TYLENOL) PO PRN ×2 (00:04→09:22)
[2018-03-20] MEDS: PROMETHAZINE/ CODEINE SYRUP 5 ML UDC PO PRN ×3 (00:59→09:48)
[2018-03-20] MEDS: D5 LR IV SOLUTION 1,000 ML IV SCH ×2 (01:32→09:36)
[2018-03-20] MEDS: RT-ALBUTEROL SULF 2.5 MG/3 ML PRE-MIX VIAL INH SCH ×3 (02:05→10:30)
[2018-03-20 05:00] VITALS: BP 100/71
[2018-03-20 08:20] VITALS: BP 99/54
[2018-03-20] MEDS: guaiFENesin (MUCINEX) 600 MG TAB PO SCH (09:24)
[2018-03-20] MEDS ORDERED: METH4TAB PO (10:52)
[2018-03-20] MEDS ORDERED: RT-ALBUINH IH (10:52)
[2018-03-20] MEDS ORDERED: NICO-587 TD (10:54)
[2018-03-20 11:35] VITALS: BP 99/54
[2018-03-20] MEDS ORDERED: NICOTINE PATCH REMOVAL TP SCH (15:00)
--- NOTE | 2018-03-21 08:23 | Short Stay Summary ---
History of Present Illness History of Present Illness Reason for visit/HPI contractions history of labor and delivery Patient has a history of delivery between 33 and 37 weeks. Has been receiving IM Callie injections. Reported history of increasing uterine contractions. On admission Cervix 2 cm dilated and thick. She was admitted for observation due to frequent contractions and previous history of delivery. Received betamethasone within the past month so this was not repeated. However, after admission, she mentioned she has had a cough and her mother states it is not getting better. Lungs are course and she is wheezing, so admitted for wheezing and breathing treatments. Did start oral steroids. And IV rocephin given due to suspected UTI. Date of Admission Mar 19, 2018 at 20:43 Date of Discharge 03/20/18 Time Seen by Provider: 10:30 Attending Physician Pan Sahu DO Admitting Physician Kelsey Manrique Consult This morning she is not wheezing. There has been no cervical change and her contractions have decreased with fluids. She will be discharged to home. Allergies and Home Medications Allergies Coded Allergies: nitrofurantoin (Verified Allergy, Unknown, RASH, 02/13/15) Uncoded Allergies: bandaids (Allergy, Unknown, 02/24/15) Home Medications Albuterol Sulfate 1 Puff Puff, 2 PUFF IH Q4H 1 PUFF = 90 MCG Prescribed by: KELSEY MANRIQUE on 03/20/18 1052 Nicotine 1 Each Patch.td24, 14 MG TD DAILY Prescribed by: KELSEY MANRIQUE on 03/20/18 1054 Patient Home Medication List Home Medication List Reviewed: No Past Mtaibjs-Poweak-Tlfbrx Hx Patient Social History Marrital Status: single Smoking Status: Current Everyday Smoker Type Used: Cigarettes Physical Abuse Screen: No Sexual Abuse: No Recent Foreign Travel: No Contact w/other who traveled: No Recent Hopitalizations: No Recent Infectious Disease Expo: No Immunizations Up To Date Tetanus Booster (TDap): More than 5yrs Pediatric: Yes Surgeries No Respiratory Yes Cardiovascular No Neurological No Reproductive System Expected Date of Delivery: Apr 30, 2018 Hx : 3 Hx Para: 2 Hx Total # of Abortions (Spona: 0 Hx Reproductive Disorders: No Sexually Transmitted Disease: Yes (hx trich treated) Gastrointestinal No Musculoskeletal Yes (neck pain, osteopenia) Arthritis, Chronic Back Pain Endocrine History of Endocrine Disorders: No HEENT History of HEENT Disorders: No Cancer No Did You Recieve Any Treatments: No Psychosocial History of Psychiatric Problem: Yes Behavioral Health Disorders: Eating Disorder, Sleep Difficulties, Anxiety, Bipolar, Depression Integumentary History of Skin or Integumenta: Yes Skin/Integumentary Disorders: Eczema Blood Transfusions History of Blood Disorders: No Adverse Reaction to a Blood Tr: No Family Medical History Family Hx: Alcoholism 19 FATHER 19 MOTHER (uncles) Arthritis 19 MOTHER Asthma 19 MOTHER Cardiovascular disease 19 MOTHER (heart murmur) Headache disorder 19 MOTHER Hypertension 19 MOTHER Neoplasm 19 MOTHER Psychosocial problem 19 MOTHER Respiratory disorder 19 MOTHER (COPD) Seizure disorder 19 MOTHER No Family History of: AIDS Abdominal aortic aneurysm [place]'s disease Alzheimer's disease Aphasia Cancer of mouth Cataracts Colon cancer Completed stroke Congenital disease Congenital heart disease Coronary thrombosis Cystic fibrosis Deafness or hearing loss Dementia Diabetes mellitus Drug abuse Dysphasia Fibrocystic disease of breast Gastroenteritis Glaucoma Hypercholesterolemia Infertility Kidney disease Myocardial infarction Not obtainable due to adoption Osteoporosis Parkinson's disease Prostate cancer Severe allergy Thyroid disease Tuberculosis Visual disorder Review of Systems Constitutional: No fever EENTM: nose congestion Respiratory: phlegm, short of breath, wheezing, other (non productive cough) Cardiovascular: no symptoms reported Genitourinary: other (regular contractions) : Yes Physical Exam Vital Signs Vital Signs - First Documented 03/19/18 03/19/18 13:00 16:00 Temp 97.0 Pulse 102 Resp 18 B/P (MAP) 114/70 (85) Pulse Ox 97 O2 Delivery Room Air Capillary Refill : Height, Weight, BMI Height: 5'3.00" Weight: 128lbs. 5.0oz. [id number]; 22.7 BMI Method:Estimated General Appearance: No Apparent Distress, WD/WN Respiratory: Other (wheezes on admission. These have resolved. Good air flow , good effort. No crackles, no rhonchi) Genital/Rectal: Other (no cervical change. REgular contractions have resolved. well being is reassuring. ) Short Stay Diagnosis Discharge Diagnosis-Short Stay Admission Diagnosis: contractions, threated labor at 34 weeks UTI Wheezing bronchitis Final Discharge Diagnosis: Same Conclusion Labs Microbiology 03/19/18 Urine Culture - Final, Complete Streptococcus mitis group Conclusion/Plan Will be discharged with albuterol inhaler, medrol dose pack, antibiotics. KELSEY MANRIQUE DO Mar 21, 2018 08:23
--- NOTE | 2018-03-22 14:18 | Physician Query-Final Dx ---
KAVYA CASTELLANO 03/22/18 1418: Final Diagnosis Give Final Diagnosis Please give Final Diagnosis ARASELI MANRIQUE DO 04/08/18 0837: Final Diagnosis Give Final Diagnosis 34 week histor of labor threatened labor (34 weeks) wheezing smoking, requested cessation UTI KAVYA CASTELLANO Mar 22, 2018 14:18 ARASELI MANRIQUE DO Apr 08, 2018 08:37
--- OUTSIDE RECORDS SUMMARY | 2018-03-27 03:49 | XMS REPORT ---
Author Author TACHO VINNIE [facility] Address [address] [place] [address] Care Team Providers Care Product Manufacturing Professional Name Role Phone KEVAN TITUSN Unavailable PROBLEMS Type Condition ICD9-CM Code UUB79-EN Code Onset Dates Condition Status SNOMED Code Problem PTSD (post-traumatic stress disorder) F43.10 Active 44389608 Problem Bipolar 1 disorder, mixed, moderate F31.62 Active 53972759 Problem Cough R05 Active 53373229 Problem Seasonal allergic rhinitis due to pollen J30.1 Active 71528937 Problem Dorsalgia of lumbar region M54.5 Active 520653263 ALLERGIES Substance Reaction Event Type Date Status Nitrofurantoin Unknown Drug Allergy Mar, Active ENCOUNTERS Encounter Location Date Diagnosis [facility] [place] [address] [place] [id number] [place] [address] Aug, Encounter for test, result unknown Z32.00 [facility] [address] [address] Mar, Bipolar 1 disorder, mixed, moderate F31.62 and PTSD (post- traumatic stress disorder) F43.10 [facility] [place] [address] [id number] [place] [address] Dec, Bipolar 1 disorder, mixed, moderate F31.62 [place] [id number] [place] [address] November, [place] [address] [address] November, Bipolar 1 disorder, mixed, moderate F31.62 and PTSD (post- traumatic stress disorder) F43.10 [place] [address] [place] [id number] [place] [address] Sep, Bronchitis J40 [facility] [address] [address] Sep, Fever R50.9 ; Non-intractable vomiting with nausea, unspecified vomiting type R11.2 ; Acute upper respiratory infection, unspecified J06.9 and Other viral agents as the cause of diseases classified elsewhere B97.[address] [address] 14 Aug, 2016 Other acute nonsuppurative otitis media of right ear H65.191 and Eustachian tube dysfunction, bilateral H69.[address] [address] 02 Aug, 2016 Tooth crowding M26.31 and Otalgia, left H92.[address] [address] Aug, [facility] [address] [id number] Jun, Dental caries K02.9 [facility] [address] [id number] Jun, Dental examination Z01.[address] [address] May, Dorsalgia of lumbar region M54.5 ; Cough R05 and Seasonal allergic rhinitis due to pollen J30.1 [place] [address] [address] May, [facility] [address] [address] Apr, [address] [address] Mar, Routine health maintenance Z00.[address] [address] 29 Sep, 2016 Routine health maintenance Z00.00 ; Family history of cancer Z80.9 ; Pain in thoracic spine M54.6 and Other chronic pain G89.29 [facility] [address] [address] Feb, [facility] [address] [address] Feb, Anesthesia of skin R20.0 and Dorsalgia, unspecified M54.9 [facility] [address] [id number] Jan, Dental caries K02.9 [facility] [address] [address] Jan, Allergic rhinitis, unspecified allergic rhinitis type J30.9 [facility] [address] [id number] Dec, Dental examination Z01.20 [facility] [address] [address] Dec, Muscle strain T14.8 and Jaw swelling R22.[address] [address] Jul, Upper respiratory tract infection, unspecified type 465.[address] [facility] [address] [id number] May, Encounter for dental examination Z01.20 and Dental caries K02.9 [facility] [id number] [place] [address] Jan, Environmental and seasonal allergies 477.8 and Otitis externa 380.[address] [address] November, Otitis media 382.9 ; Bronchitis 490 and Back pain 724.[address] [address] Oct, [id number] [place] [address] 13 Oct, 2014 [facility] [address] [id number] [place] [address] Jun, [facility] [place] [facility] [address] [id number] [place] [address] Jun, [facility] [address] [id number] [place] [address] Jan, [facility] [place] [facility] [address] [id number] [place] [address] Jan, [facility] [address] [id number] [place] [address] Jan, [facility] [place] [facility] [address] [id number] [place] [address] Jan, [facility] [place] [facility] [address] [id number] [place] [address] Jan, [facility] [address] [id number] [place] [address] Jan, [facility] [place] [facility] [address] [id number] [place] [address] 4[address] Jan, [facility] [address] [id number] [place] [address] Jan, [facility] [place] [facility] [address] [id number] [place] [address] Oct, [facility] [place] [facility] [address] [id number] [place] [address] 8[address] Oct, [facility] [place] [facility] [address] [id number] [place] [address] May, [facility] [place] [facility] [address] [id number] [place] [address]- [address] May, [facility] [place] [facility] [address] [id number] [place] [address] May, [facility] [place] [facility] [address] [id number] [place] [address]- 29[address] May, [facility] [place] [facility] [address] [id number] [place] [address]- 3295 May, [facility] [place] [facility] [address] [id number] [place] [address]- 7992 May, [facility] [place] [facility] [address] [id number] [place] [address] May, [facility] [place] [facility] [address] [id number] [place] [address]- 9184 May, [facility] [place] [facility] [address] [id number] [place] [address] Mar, [facility] [place] [facility] [address] [id number] [place] [address]- 68[address] Feb, [facility] [place] [facility] [address] [id number] [place] [address]- 8[address] Feb, [facility] [place] [facility] [address] [id number] [place] [address]- 3[address] Feb, [facility] [place] [facility] [address] [id number], [place] [address] Feb, [facility] [place] [facility] [address] [id number], [place] [address] Feb, [facility] [place] [facility] [address] [id number], [place] [address] Feb, [facility] [place] [facility] [address] [id number] [place] [address]- 77[address] Jan, [facility] [place] [facility] [address] [id number] [place] [address]- 7[address] Jul, [facility] [place] [facility] [address] [id number], [place] [address]- [address] Jul, [facility] [place] [facility] [address] [id number], [place] [address] 17 Jul, 2012 [facility] [address] [id number] [place] [address] Jul, [facility] [address] [id number] [place] [address]- [address] 16 Jul, 2012 [facility] [address] [facility] [id number] [place] [address]- 97[address] Jul, [facility] [address] [id number] [place] [address]- 7096 Jul, [facility] [address] [id number] [place] [address]- 7191 Jul, [facility] [address] [facility] [id number] [place] [address]- [address] Jun, [facility] [id number] [place] [address] Jun, [facility] [address] [facility] [id number] [place] [address]- [address] Jun, [facility] [address] [id number] [place] [address]- [address] Jun, [facility] [address] [facility] [id number] [place] [address]- 1790 Jun, [facility] [address] [id number] [place] [address]- 66[address] Aug, [facility] [address] [id number] [place] [address]- 110[address] Jun, [facility] [address] [id number] [place] [address]- 69[address] Jun, [facility] [address] [facility] [id number] [place] [address]- 137[address] May, [facility] [address] [facility] [id number] [place] [address]- 6989 May, [facility] [address] [facility] [id number], [place] [address] Apr, [facility] [address] [facility] [id number][place] [address] Feb, [facility] [address] [facility] [id number][place] [address] Feb, [facility] [address] [facility] [id number], [place] [address]- [address] Jun, [facility] [address] [facility] [id number][place] [address] Jun, [facility] [address] [facility] [id number][place] Jun, [facility] [address], [place] [address]- [address] Apr, [facility] [address], [place] [address]- [address] Apr, [facility] [address] [id number], [place] [address]- 225[address] Apr, IMMUNIZATIONS No Known Immunizations SOCIAL HISTORY Never Assessed REASON FOR VISIT intake Tariq PLAN OF CARE Activity Details Follow Up 4 Weeks Reason: f/u VITAL SIGNS Height 64 in 2017-04-22 Weight 110.0 lbs 2017-04-22 Heart Rate 76 bpm 2017-04-22 Respiratory Rate 20 2017-04-22 BMI 18.88 kg/m2 2017-04-22 MEDICATIONS Medication Instructions Dosage Frequency Start Date End Date Duration Status Mirtazapine 15 mg Orally Once a day at bedtime 1 tablet Mar, 30 day(s) Active Lamictal 25 MG Orally once a day for two weeks, then 2 tablets daily 1 tablet Mar, 30 day(s) Active RESULTS No Results PROCEDURES No Known procedures INSTRUCTIONS MEDICATIONS ADMINISTERED No Known Medications MEDICAL (GENERAL) HISTORY Type Description Date Medical History Asthma Medical History Arthritis Medical History back trouble Medical History neck pain Medical History depression Medical History PTSD Medical History bipolar/mood disorder Medical History anxiety Medical History Bulimia Nervosa Hospitalization History childbirth x 2
--- OUTSIDE RECORDS SUMMARY | 2018-03-27 03:50 | XMS REPORT | Continuity of Care Document ---
Author Author [facility] Address Unknown Phone Unavailable Allergies Active Description Code Type Severity Reaction Onset Reported/Identified Relationship to Patient Clinical Status Yes traZODONE Drug Allergy 05/03/2011 Yes traZODONE Drug Allergy N/A N/A 05/03/2011 Yes Nitrofurantoin Drug Allergy N /A N/A 03/15/2013 Yes nitrofurantoin [id number] Drug Allergy Unknown RASH 02/13/2015 Yes bandaids [...] AN PANIC DIS W AGORA 06/03/2011 HEMAL COLEAMN APRN 300.4 MO DYSTHYMIC DISORDER 06/03/2011 HEMAL [...] 133.0 SCABIES 06/28/2011 133.0 SCABIES 06/28/2011 ZAC DISH MACHINE OPERATOR, NEHA A 133.0 SCABIES 06/28/2011 ENEDELIA SAMS [...] 724.2 BACK PAIN, LOWER 07/29/2014 HEIDI STAHL DISH MACHINE OPERATOR Ot 599.0 URIN TRACT INFECTION NOS 07/29/2014 HEIDI STAHL DISH MACHINE OPERATOR Ot 646.63 INFECTION-ANTEPARTUM 07/29/2014 HEIDI STAHL APRN [...] Ot V27.0 DELIVER-SINGLE LIVEBORN 12/06/2015 HEIDI STAHL DISH MACHINE OPERATOR Ot S61.210A LACERATION W/O FB OF R IDX FNGR W/O GHULAM 12/06/2015 HEIDI STAHL DISH MACHINE OPERATOR Ot W26.0XXA CONTACT WITH KNIFE, INITIAL ENCOUNTER 12/06/2015 HEIDI STAHL DISH MACHINE OPERATOR Ot Y92.010 KITCHEN OF SINGLE-FAMILY (PRIVATE) HOUSE 12/06/2015 HEIDI STAHL DISH MACHINE OPERATOR Ot Y93.G1 ACTIVITY, FOOD PREPARATION AND CLEAN UP 12/06/2015 HEIDI STAHL DISH MACHINE OPERATOR Ot Y99.8 OTHER EXTERNAL CAUSE STATUS 12/07/2015 HEIDI STAHL APRN Ot S61.210A LACERATION W/O FB OF R IDX FNGR W/O GHULAM 12/07/2015 HEIDI STAHL APRN Ot W26.0XXA CONTACT WITH KNIFE, INITIAL ENCOUNTER 12/07/2015 HEIDI STAHL APRN Ot Y92.010 KITCHEN OF SINGLE-FAMILY (PRIVATE) HOUSE 12/07/2015 HEIDI STAHL DISH MACHINE OPERATOR Ot Y93.G1 ACTIVITY, FOOD PREPARATION AND CLEAN UP 12/07/2015 HEIDI STAHL DISH MACHINE OPERATOR Ot Y99.8 OTHER EXTERNAL CAUSE STATUS 03/07/2016 FENECH DO, JENNA S Ot R10.2 PELVIC AND PERINEAL PAIN 03/10/2016 AMANDAECH DOJENNA S Ot R10.2 PELVIC AND PERINEAL PAIN 03/13/2016 ZEFERINO FOUNTAIN JENNA S Ot R10.2 PELVIC AND PERINEAL PAIN 03/13/2016 HEIDI STAHL DISH MACHINE OPERATOR Ot M54.2 CERVICALGIA 03/13/2016 HEIDI STAHL DISH MACHINE OPERATOR Ot M54.5 LOW BACK PAIN 03/13/2016 HEIDI STAHL DISH MACHINE OPERATOR Ot M79.621 PAIN IN RIGHT UPPER ARM 03/13/2016 HEIDI STAHL DISH MACHINE OPERATOR Ot N39.0 URINARY TRACT INFECTION, SITE NOT SPECIF 04/11/2016 ZEFERINO FOUNTAIN JENNA S Ot R10.2 PELVIC AND PERINEAL PAIN 04/22/2016 HEIDI STAHL DISH MACHINE OPERATOR Ot M54.2 CERVICALGIA 04/22/2016 HEIDI STAHL DISH MACHINE OPERATOR Ot M54.5 LOW BACK PAIN 04/22/2016 HEIDI STAHL DISH MACHINE OPERATOR Ot M79.621 PAIN IN RIGHT UPPER ARM 04/22/2016 HEIDI STAHL DISH MACHINE OPERATOR Ot N39.0 URINARY TRACT INFECTION, SITE NOT SPECIF 04/23/2016 ZEFERINO [place] JENNA S Ot R10.2 PELVIC AND PERINEAL PAIN 08/25/2017 HEIDI STAHL DISH MACHINE OPERATOR Ot F31.9 BIPOLAR DISORDER, UNSPECIFIED 08/25/2017 HEIDI STAHL DISH MACHINE OPERATOR Ot F41.9 ANXIETY DISORDER, UNSPECIFIED 08/25/2017 HEIDI STAHL DISH MACHINE OPERATOR Ot J45.909 UNSPECIFIED ASTHMA, UNCOMPLICATED 08/25/2017 HEIDI STAHL DISH MACHINE OPERATOR Ot K02.9 DENTAL CARIES, UNSPECIFIED 08/25/2017 HEIDI STAHL DISH MACHINE OPERATOR Ot K08.89 OTHER SPECIFIED DISORDERS OF TEETH AND S 08/25/2017 HEIDI STAHL DISH MACHINE OPERATOR Ot Z82.49 FAMILY HX OF ISCHEM HEART DIS AND OTH DI 08/25/2017 HEIDI STAHL DISH MACHINE OPERATOR Ot Z88.1 ALLERGY STATUS TO OTHER ANTIBIOTIC AGENT 12/03/2017 AMANDAECH JENNA FOUNTAIN S Ot Z36.89 ENCOUNTER FOR OTHER SPECIFIED 12/03/2017 FENECH DOJENNA S Ot Z3A.18 18 WEEKS GESTATION OF 12/15/2017 JENNA MCGARRY DO S Ot Z36.89 ENCOUNTER FOR OTHER SPECIFIED 12/15/2017 AMANDAECH JENNA [place]OUNTAIN S Ot Z3A.18 18 WEEKS GESTATION OF Procedures Code [place] [address] UA W/ CULTURE IF INDICATED 08/05/2012 50466 CULTURE URINE 08/05/2012 86459 SYPHILIS TEST 08/11/2012 90081 HIV ANTIBODIES (RML) 08/11/2012 73430 CULTURE UROGENITAL 08/11/2012 93611 GC/CHLAM PROBE (STATE) 08/11/2012 82015 TRICHOMONAS (IN-HOUSE) 08/11/2012 51414 ROUTINE VENIPUNCTURE 03/07/2013 30612 URINE DRUG SCREEN (IN-HOUSE ) 03/07/2013 92319 CBC 03/07/2013 49455 TSH 03/07/2013 15974 HIV ANTIBODIES (RML) 03/07/2013 36305 BLOOD TYPE/Rh FACTOR 03/08/2013 0829814 ANTIBODY SCREEN (RESULT ONLY) 03/08/2013 58320 RUBELLA ANTIBODY, IGG 03/08/2013 63851 CULTURE URINE 03/09/2013 40031 SYPHILLIS-STATE LAB 03/09/2013 99162 ANTIBODY SCREEN (order) 03/09/2013 11071 HEP B SURFACE ANTIGEN (STATE ) 03/09/2013 15472 UA LONG DIP 03/15/2013 27227 UA W/ CULTURE IF INDICATED 05/30/2013 68115 CULTURE URINE 05/31/2013 06318 TEST, URINE (IN- HOUSE) 07/17/2014 75.69 02/22/2015 [...] culture - 03/13/16 15:42 Bacterial urine culture [id number] NRG COLONY COUNT >100,000/ML NRG FTX;REPORTABLE SENSITIVITY [...] test by minimum inhibitory concentration 2 NRG CBC With Differential/Platelet - 04/25/16 08:41 WBC 8.9 x10E3/uL 3.4-10.8 RBC 4.47 x10E6/uL 3.77-5.28 Hemoglobin 14.0 g/dL 11.1-15.9 Hematocrit 40.8 % 34.0-46.6 MCV 91 fL 79-97 MCH 31.3 pg 26.6-33.0 MCHC 34.3 g/dL 31.5-35.7 RDW 13.1 % 12.3-15.4 Platelets 262 x10E3/uL 150-379 Neutrophils 55 % Lymphs 37 % Monocytes 6 % Eos 2 % Basos 0 % Neutrophils (Absolute) 4.9 x10E3/uL 1.4-7.0 Lymphs (Absolute) 3.2 x10E3/uL 0.7-3.1 Monocytes(Absolute) 0.6 x10E3/uL 0.1-0.9 Eos (Absolute) 0.1 x10E3/uL 0.0-0.4 Baso (Absolute) 0.0 x10E3/uL 0.0-0.2 Immature Granulocytes 0 % Immature Grans (Abs) 0.0 x10E3/uL 0.0-0.1 Comp. Metabolic Panel (14) - 04/25/16 08:41 Glucose, Serum 86 mg/dL 65-99 BUN 11 mg/dL 6-20 Creatinine, Serum 0.88 mg/dL 0.57-1.00 eGFR If NonAfricn Am 93 mL/min/1.73 >59 eGFR If Africn Am 107 mL/min/1.73 >59 BUN/Creatinine Ratio 13 8-20 Sodium, Serum 140 mmol/L 134-144 Potassium, Serum 4.4 mmol/L 3.5-5.2 Chloride, Serum 104 mmol/L 97-108 Carbon Dioxide, Total 23 mmol/L 18-29 Calcium, Serum 9.3 mg/dL 8.7-10.2 Protein, Total, Serum 6.5 g/dL 6.0-8.5 Albumin, Serum 4.3 g/dL 3.5-5.5 Globulin, Total 2.2 g/dL 1.5-4.5 A/G Ratio 2.0 1.1-2.5 Bilirubin, Total 0.9 mg/dL 0.0-1.2 Alkaline Phosphatase, S 64 IU/L 39-117 AST (SGOT) 15 IU/L 0-40 ALT (SGPT) 11 IU/L 0-32 Lipid Panel - 04/25/16 08:41 Cholesterol, Total 148 mg/dL 100-199 Triglycerides 80 mg/dL 0-149 HDL Cholesterol 42 mg/dL >39 VLDL Cholesterol Solomon 16 mg/dL 5-40 LDL Cholesterol Calc 90 mg/dL 0-99 Hemoglobin A1c - 04/25/16 08:41 Hemoglobin A1c 5.4 % 4.8-5.6 Thyroid [place] Profile - 04/25/16 08:41 TSH 2.340 uIU/mL 0.450-4.500 TEST, SERUM (QUAL) - 08/27/17 16:34 HCG, TOTAL, QL POSITIVE See Note: Complete urinalysis with reflex to culture - 03/19/18 13:45 Urine color determination YELLOW NRG Urine clarity determination SLIGHTLY CLOUDY NRG Urine pH measurement by test strip 7 5-9 Specific gravity of urine by test strip 1.010 1.016- 1.022 Urine protein assay by test strip, semi-quantitative NEGATIVE NEGATIVE Urine glucose detection by automated test strip NEGATIVE NEGATIVE Erythrocytes detection in urine sediment by light microscopy NEGATIVE NEGATIVE Urine ketones detection by automated test strip NEGATIVE NEGATIVE Urine nitrite detection by test strip NEGATIVE NEGATIVE Urine total bilirubin detection by test strip NEGATIVE NEGATIVE Urine urobilinogen measurement by automated test strip (mass/volume) 1 mg/dL NORMAL Urine leukocyte esterase detection by dipstick 1+ NEGATIVE Automated urine sediment erythrocyte count by microscopy (number/high power field) NONE NRG Automated urine sediment leukocyte count by microscopy (number/high power field ) [HPF] NRG Bacteria detection in urine sediment by light microscopy LARGE NRG Squamous epithelial cells detection in urine sediment by light microscopy 2-5 NRG Crystals detection in urine sediment by light microscopy NONE NRG Casts detection in urine sediment by light microscopy NONE NRG Mucus detection in urine sediment by light microscopy NEGATIVE NRG Complete urinalysis with reflex to culture YES NRG Complete blood count (CBC) with automated white blood cell (WBC) differential - 03/19/18 16:17 Blood leukocytes automated count (number/volume) 13.1 10*3/uL 4.3-11.0 Blood erythrocytes automated count (number/volume) 3.04 10*6/uL 4.35-5.85 Venous blood hemoglobin measurement (mass/volume) 9.3 g/dL 11.5-16.0 Blood hematocrit (volume fraction) 27 % 35-52 Automated erythrocyte mean corpuscular volume 90 [foz_us] 80-99 Automated erythrocyte mean corpuscular hemoglobin (mass per erythrocyte) 31 pg 25-34 Automated erythrocyte mean corpuscular hemoglobin concentration measurement ( mass/volume) 34 g/dL 32-36 Automated erythrocyte distribution width ratio 13.5 % 10.0-14.5 Automated blood platelet count (count/volume) 286 10*3/uL 130-400 Automated blood platelet mean volume measurement 10.3 [foz_us] 7.4-10.4 Automated blood neutrophils/100 leukocytes 73 % 42-75 Automated blood lymphocytes/100 leukocytes 20 % 12-44 Blood monocytes/100 leukocytes 6 % 0-12 Automated blood eosinophils/100 leukocytes 1 % 0-10 Automated blood basophils/100 leukocytes 0 % 0-10 Blood neutrophils automated count (number/volume) 9.5 10*3 1.8-7.8 Blood lymphocytes automated count (number/volume) 2.6 10*3 1.0-4.0 Blood monocytes automated count (number/volume) 0.7 10*3 0.0-1.0 Automated eosinophil count 0.2 10*3/uL 0.0-0.3 Automated blood basophil count (count/volume) 0.0 10*3/uL 0.0-0.1 Encounters ACCT No. Visit Date/Time Discharge Status Pt. Type Provider Facility Loc./Unit Complaint [id number] 07/17/2014 15:04:00 07/17/2014 23:59:59 CLS Outpatient BEV PLIETEZ DO [id number] 02/03/2014 14:50:00 02/03/2014 23:59:59 CLS Outpatient BEV PLEITEZ DO [id number] 10/25/2013 14:43:00 10/25/2013 23:59:59 CLS Outpatient JACQUE SAMS APRN [id number] 05/30/2013 08:36:00 05/30/2013 23:59:59 CLS Outpatient NEHA FRANK APRN [id number] 08/11/2012 10:40:00 08/11/2012 23:59:59 CLS Outpatient BEV PLEITEZ DO [id number] 08/05/2012 12:46:00 08/05/2012 23:59:59 CLS Outpatient [id number] 09/04/2011 11:59:00 09/04/2011 23:59:59 CLS Outpatient HEMAL COLEMAN APRN [id number] 03/15/2013 10:19:00 Document Registration [id number] 03/07/2013 10:38:00 Document Registration [id number] 08/27/2017 16:40:00 08/27/2017 23:59:59 CLS Outpatient ELIZABETH PETER [facility] [id number] 08/27/2017 16:40:00 Document Registration [id number] 04/26/2016 13:05:00 Document Registration [id number] 12/02/2017 10:34:00 12/02/2017 23:59:59 CLS Outpatient JENNA MCGARRY DO [facility] RAD Z33.1 [id number] 08/25/2017 15:05:00 08/25/2017 15:38:00 DIS Emergency HEIDI STAHL APRN [facility] ER DENTAL PAIN [id number] 03/13/2016 15:23:00 03/13/2016 16:25:00 DIS Emergency HEIDI STAHL APRN [facility] ER NECK AND BACK INJ [id number] 03/06/2016 15:14:00 03/06/2016 23:59:59 CLS Outpatient JENNA MCGARRY DO [facility] RAD ACUTE PELVIC PAIN [id number] 12/06/2015 10:25:00 12/06/2015 10:53:00 DIS Emergency HEIDI STAHL APRN [facility] ER RIGHT POINTER LAC [id number] 02/22/2015 07:00:00 02/24/2015 15:20:00 DIS Inpatient JENNA MCGARRY DO [facility] LDRP LABOR [id number] 02/13/2015 19:04:00 02/13/2015 20:41:00 DIS Outpatient JENNA MCGARRY DO [facility] WSo C/O LEAKING FLUID [id number] 02/04/2015 15:19:00 02/04/2015 16:09:00 DIS Outpatient SMITH DURON, MENDY Cornell [facility] WSo CONTRACTIONS [id number] 09/04/2014 17:19:00 09/04/2014 23:59:59 CLS Outpatient KAMILLE SHEPHERD DISH MACHINE OPERATOR [facility] QUICK [id number] 07/29/2014 18:18:00 07/29/2014 19:40:00 DIS Emergency STAHLHEIDI JOHNSON DISH MACHINE OPERATOR [facility] ER NAUSEA; 8 WKS [id number] 08/23/2013 17:45:00 08/23/2013 19:52:00 DIS Inpatient FENECH JENNA FOUNTAIN [facility] WS CONTRACTIONS [id number] 08/14/2013 10:00:00 08/15/2013 11:36:00 DIS Inpatient AMANDAECH JENNA [place]AIN [facility] WS LEAKING FLUID [id number] 03/19/2018 14:08:00 Document Registration [id number] 08/29/2010 23:16:00 Document Registration [email or web address] 02/22/2015 05:03:50 ACT Document Registration
== END 2018-03-20 10:52 | disposition home or self-care (01) ==
LOC: LDRP 12:45 → WSo 12:50 → LDRP 16:27 → WSo 20:43 → LDRP 20:43 → UNDOADMOB 20:43 → LDRP 20:43 → UNDODISOB 03-20 11:35 → WSo 03-20 11:35 → LDRP 03-20 11:35 → EDSTATUS 03-26 14:42
PROVIDERS: ADMIT Obstetrics & Gynecology; ATTEND Obstetrics & Gynecology
DX: O47.03 False labor before 37 completed weeks of gestation, third trimester (principal); O23.43 Unspecified infection of urinary tract in pregnancy, third trimester; R06.2 Wheezing; O99.333 Smoking (tobacco) complicating pregnancy, third trimester; F17.210 Nicotine dependence, cigarettes, uncomplicated; Z3A.34 34 weeks gestation of pregnancy
CPT/HCPCS: 36415; 81000; 85025; 87088; 94640; 94760; 96361; 96374; 99211; G0378

== ENCOUNTER 2018-03-28 22:35 | Observation (INO) | payer MEDICAID ==
[~2018-03-28] VITALS: Ht 162.6 cm; Wt 55.4 kg
[~2018-03-28 22:35] MED LIST changes: +CEPH-507 PO; +METH4TAB PO; +NICO-587 TD; +RT-ALBUINH IH
[2018-03-28 22:45] VITALS: BP 107/64
[2018-03-28 22:58] LABS: BILIRUBIN,URINE NEGATIVE (NEGATIVE); CLARITY,URINE CLEAR; COLOR,URINE AMBER; GLUCOSE, URINE (UA) NEGATIVE (NEGATIVE); KETONES,URINE 1+ (NEGATIVE); LEUKOCYTE ESTERASE ,URINE 2+ (NEGATIVE); NITRITE,URINE NEGATIVE (NEGATIVE); PH,URINE 6 (5-9); PROTEIN,URINE 2+ (NEGATIVE); UROBILINOGEN,URINE 4 MG/DL (NORMAL)
[2018-03-28 23:00] VITALS: BP 107/64
[2018-03-28 23:17] LABS: BACTERIA,URINE TRACE /HPF; RBC,URINE 0-2 /HPF
[2018-03-28 23:18] LABS: SQUAMOUS EPITHELIAL CELL,UR 25-50 /HPF
[2018-03-28] MEDS ORDERED: NS (IVPB) 50 ML ONE (23:53)
[2018-03-28] MEDS ORDERED: D5 LR IV SOLUTION 1,000 ML IV ONE (23:54)
[2018-03-29] MEDS ORDERED: D5 LR IV SOLUTION 1,000 ML IV SCH (00:20)
[2018-03-29] MEDS ORDERED: AMPICILLIN FOR IV USE 2,000 MG in NS (IVPB) 50 ML IV SCH (00:20)
[2018-03-29 00:30] LABS: BASOPHILS % (AUTO) 0 % (0-10); EOSINOPHILS # (AUTO) 0.1 10^3/uL (0.0-0.3); EOSINOPHILS % (AUTO) 1 % (0-10); HEMATOCRIT 30 % (35-52); HEMOGLOBIN 10.4 G/DL (11.5-16.0); LYMPHOCYTES # (AUTO) 2.9 X 10^3 (1.0-4.0); LYMPHOCYTES % (AUTO) 20 % (12-44); MEAN CORPUSCULAR HEMOGLOBIN 30 PG (25-34); MEAN CORPUSCULAR HGB CONC 35 G/DL (32-36); MEAN CORPUSCULAR VOLUME 87 FL (80-99); MEAN PLATELET VOLUME 10.2 FL (7.4-10.4); MONOCYTES # (AUTO) 0.8 X 10^3 (0.0-1.0); MONOCYTES % (AUTO) 5 % (0-12); NEUTROPHILS % (AUTO) 74 % (42-75); PLATELET COUNT 326 10^3/uL (130-400); RED BLOOD COUNT 3.44 10^6/uL (4.35-5.85); RED CELL DISTRIBUTION WIDTH 13.9 % (10.0-14.5); WHITE BLOOD COUNT 14.8 10^3/uL (4.3-11.0)
[2018-03-29] MEDS ORDERED: MINERAL OIL CONCENTRATE 99.9% 15 ML UDC TOP PRN (00:30)
[2018-03-29] MEDS ORDERED: CATHETER FLUSH 10 ML SYR IV PRN (00:30)
[2018-03-29] MEDS: AMPICILLIN FOR IV USE 1,000 MG in NS (IVPB) 50 ML IV SCH ×2 (04:10→08:04)
[2018-03-29 07:00] VITALS: BP 110/64
--- OUTSIDE RECORDS SUMMARY | 2018-03-29 07:31 | XMS REPORT | Continuity of Care Document ---
Author Author [facility] of [facility] Address Unknown Phone Unavailable Allergies Active Description Code Type Severity Reaction Onset Reported/Identified Relationship to Patient Clinical Status Yes traZODONE Drug Allergy 05/03/2011 Yes traZODONE Drug Allergy N/A N/A 05/03/2011 Yes Nitrofurantoin Drug Allergy N /A N/A 03/15/2013 Yes nitrofurantoin [id number] Drug Allergy Unknown RASH 02/13/2015 Yes bandaids [...] 301.9 PD PERS DIS NOS 06/03/2011 ENEDELIA ASMS APRNINA R 300.21 AN PANIC DIS W [...] 133.0 SCABIES 06/28/2011 133.0 SCABIES 06/28/2011 ZAC INTENSIVE CARE NURSE, NEHA A 133.0 SCABIES 06/28/2011 ENEDELIA SAMS [...] TOBACCO USE DISOR COMP PREG/CHILDBIRTH/P 08/23/2013 JENNA MGCARRY DO Ot 658.13 ADAL RUPT MEMB-ANTEPART 02/03/2014 BEV PLEITEZ DO K 723.1 CERVICALGIA 02/03/2014 BEV PLEITEZ DO K 724.2 BACK PAIN, LOWER 02/03/2014 BEV PLEITEZ DO K 723.1 CERVICALGIA 02/03/2014 PRICILLA FOUNTAIN BEV K 724.2 BACK PAIN, LOWER 07/29/2014 HEIDI STAHL INTENSIVE CARE NURSE Ot 599.0 URIN TRACT INFECTION NOS 07/29/2014 HEIDI STAHL INTENSIVE CARE NURSE Ot 646.63 INFECTION-ANTEPARTUM 07/29/2014 HEIDI STAHL APRN Ot 787.01 NAUSEA WITH VOMITING 02/04/2015 SMITH DURON, MENDY Cornell Ot 644.03 THRT ADAL LABOR-ANTEPART 02/13/2015 JENNA MCGARYR DO Ot 599.0 URIN TRACT INFECTION NOS [...] Ot V27.0 DELIVER-SINGLE LIVEBORN 12/06/2015 HEIDI STAHL INTENSIVE CARE NURSE Ot S61.210A LACERATION W/O FB OF R IDX FNGR W/O GHULAM 12/06/2015 HEIDI STAHL INTENSIVE CARE NURSE Ot W26.0XXA CONTACT WITH KNIFE, INITIAL ENCOUNTER 12/06/2015 HEIDI STAHL INTENSIVE CARE NURSE Ot Y92.010 KITCHEN OF SINGLE-FAMILY (PRIVATE) HOUSE 12/06/2015 HEIDI STAHL INTENSIVE CARE NURSE Ot Y93.G1 ACTIVITY, FOOD PREPARATION AND CLEAN UP 12/06/2015 HEIDI STAHL INTENSIVE CARE NURSE Ot Y99.8 OTHER EXTERNAL CAUSE STATUS 12/07/2015 HEIDI STAHL APRN Ot S61.210A LACERATION W/O FB OF R IDX FNGR W/O GHULAM 12/07/2015 HEIDI STAHL APRN Ot W26.0XXA CONTACT WITH KNIFE, INITIAL ENCOUNTER 12/07/2015 HEIDI STAHL APRN Ot Y92.010 KITCHEN OF SINGLE-FAMILY (PRIVATE) HOUSE 12/07/2015 HEIDI STAHL INTENSIVE CARE NURSE Ot Y93.G1 ACTIVITY, FOOD PREPARATION AND CLEAN UP 12/07/2015 HEIDI STAHL INTENSIVE CARE NURSE Ot Y99.8 OTHER EXTERNAL CAUSE STATUS 03/07/2016 FENECH DO, JENNA S Ot R10.2 PELVIC AND PERINEAL PAIN 03/10/2016 AMANDAECH DOJENNA S Ot R10.2 PELVIC AND PERINEAL PAIN 03/13/2016 ZEFERINO FOUNTAIN JENNA S Ot R10.2 PELVIC AND PERINEAL PAIN 03/13/2016 HEIDI STAHL INTENSIVE CARE NURSE Ot M54.2 CERVICALGIA 03/13/2016 HEIDI STAHL INTENSIVE CARE NURSE Ot M54.5 LOW BACK PAIN 03/13/2016 HEIDI STAHL INTENSIVE CARE NURSE Ot M79.621 PAIN IN RIGHT UPPER ARM 03/13/2016 HEIDI STAHL INTENSIVE CARE NURSE Ot N39.0 URINARY TRACT INFECTION, SITE NOT SPECIF 04/11/2016 ZEFERINO FOUNTAIN JENNA S Ot R10.2 PELVIC AND PERINEAL PAIN 04/22/2016 HEIDI STAHL INTENSIVE CARE NURSE Ot M54.2 CERVICALGIA 04/22/2016 HEIDI STAHL INTENSIVE CARE NURSE Ot M54.5 LOW BACK PAIN 04/22/2016 HEIDI STAHL INTENSIVE CARE NURSE Ot M79.621 PAIN IN RIGHT UPPER ARM 04/22/2016 HEIDI STAHL INTENSIVE CARE NURSE Ot N39.0 URINARY TRACT INFECTION, SITE NOT SPECIF 04/23/2016 ZEFERINO FOUNTAIN JENNA S Ot R10.2 PELVIC AND PERINEAL PAIN 08/25/2017 HEIDI STAHL INTENSIVE CARE NURSE Ot F31.9 BIPOLAR DISORDER, UNSPECIFIED 08/25/2017 HEIDI STAHL INTENSIVE CARE NURSE Ot F41.9 ANXIETY DISORDER, UNSPECIFIED 08/25/2017 HEIDI STAHL INTENSIVE CARE NURSE Ot J45.909 UNSPECIFIED ASTHMA, UNCOMPLICATED 08/25/2017 HEIDI STAHL INTENSIVE CARE NURSE Ot K02.9 DENTAL CARIES, UNSPECIFIED 08/25/2017 HEIDI STAHL INTENSIVE CARE NURSE Ot K08.89 OTHER SPECIFIED DISORDERS OF TEETH AND S 08/25/2017 HEIDI STAHL INTENSIVE CARE NURSE Ot Z82.49 FAMILY HX OF ISCHEM HEART DIS AND OTH DI 08/25/2017 HEIDI STAHL INTENSIVE CARE NURSE Ot Z88.1 ALLERGY STATUS TO OTHER ANTIBIOTIC AGENT 12/03/2017 AMANDAECH JENNA FOUNTAIN S Ot Z36.89 ENCOUNTER FOR OTHER SPECIFIED 12/03/2017 FENECH DOJENNA S Ot Z3A.18 18 WEEKS GESTATION OF 12/15/2017 JENNA MCGARRY DO S Ot Z36.89 ENCOUNTER FOR OTHER SPECIFIED 12/15/2017 AMANDAECH JENNA FOUNTAIN S Ot Z3A.18 18 WEEKS GESTATION OF Procedures Code Description [place] [address] UA W/ CULTURE IF INDICATED 08/05/2012 09640 CULTURE URINE 08/05/2012 57566 SYPHILIS TEST 08/11/2012 53283 HIV ANTIBODIES (RML) 08/11/2012 77927 CULTURE UROGENITAL 08/11/2012 43784 GC/CHLAM PROBE (STATE) 08/11/2012 79824 TRICHOMONAS (IN-HOUSE) 08/11/2012 67873 ROUTINE VENIPUNCTURE 03/07/2013 43056 URINE DRUG SCREEN (IN-HOUSE ) 03/07/2013 46438 CBC 03/07/2013 05160 TSH 03/07/2013 14399 HIV ANTIBODIES (RML) 03/07/2013 59282 BLOOD TYPE/Rh FACTOR 03/08/2013 3356913 ANTIBODY SCREEN (RESULT ONLY) 03/08/2013 08033 RUBELLA ANTIBODY, IGG 03/08/2013 46013 CULTURE URINE 03/09/2013 61886 SYPHILLIS-STATE LAB 03/09/2013 11676 ANTIBODY SCREEN (order) 03/09/2013 77584 HEP B SURFACE ANTIGEN (STATE ) 03/09/2013 06406 UA LONG DIP 03/15/2013 01382 UA W/ CULTURE IF INDICATED 05/30/2013 76900 CULTURE URINE 05/31/2013 50474 TEST, URINE (IN- HOUSE) 07/17/2014 75.69 02/22/2015 [...] culture - 03/13/16 15:42 Bacterial urine culture [id number] NRG COLONY COUNT >100,000/ML NRG FTX;REPORTABLE SENSITIVITY [...] 08:41 Hemoglobin A1c 5.4 % 4.8-5.6 Thyroid [place] Profile - 04/25/16 08:41 TSH 2.340 uIU/mL [...] Status Pt. Type Provider Facility Loc./Unit Complaint [id number] 07/17/2014 15:04:00 07/17/2014 23:59:59 CLS Outpatient BEV PLEITEZ DO [id number] 02/03/2014 14:50:00 02/03/2014 23:59:59 CLS Outpatient BEV PLEITEZ DO [id number] 10/25/2013 14:43:00 10/25/2013 23:59:59 CLS Outpatient JACQUE SAMS APRN [id number] 05/30/2013 08:36:00 05/30/2013 23:59:59 CLS Outpatient NEHA FRANK APRN [id number] 08/11/2012 10:40:00 08/11/2012 23:59:59 CLS Outpatient BEV PLEITEZ DO [id number] 08/05/2012 12:46:00 08/05/2012 23:59:59 CLS Outpatient [id number] 09/04/2011 11:59:00 09/04/2011 23:59:59 CLS Outpatient HEMAL COLEMAN APRN [id number] 03/15/2013 10:19:00 Document Registration [id number] 03/07/2013 10:38:00 Document Registration [id number] 08/27/2017 16:40:00 08/27/2017 23:59:59 CLS Outpatient [facility] [id number] 08/27/2017 16:40:00 Document Registration [id number] 04/26/2016 13:05:00 Document Registration [id number] 12/02/2017 10:34:00 12/02/2017 23:59:59 CLS Outpatient JENNA MCGARRY DO [facility] RAD Z33.1 [id number] 08/25/2017 15:05:00 08/25/2017 15:38:00 DIS Emergency HEIDI STAHL APRN [facility] ER DENTAL PAIN [id number] 03/13/2016 15:23:00 03/13/2016 16:25:00 DIS Emergency HEIDI STAHL APRN [facility] ER NECK AND BACK INJ [id number] 03/06/2016 15:14:00 03/06/2016 23:59:59 CLS Outpatient JENNA MCGARRY DO [facility] RAD ACUTE PELVIC PAIN [id number] 12/06/2015 10:25:00 12/06/2015 10:53:00 DIS Emergency HEIDI STAHL APRN [facility] ER RIGHT POINTER LAC [id number] 02/22/2015 07:00:00 02/24/2015 15:20:00 DIS Inpatient JENNA MCGARRY DO [facility] LDRP LABOR [id number] 02/13/2015 19:04:00 02/13/2015 20:41:00 DIS Outpatient JENNA MCGARRY DO [facility] WSo C/O LEAKING FLUID [id number] 02/04/2015 15:19:00 02/04/2015 16:09:00 DIS Outpatient SMITH DURON, MENDY Cornell [facility] WSo CONTRACTIONS [id number] 09/04/2014 17:19:00 09/04/2014 23:59:59 CLS Outpatient KAMILLE SHEPHERD INTENSIVE CARE NURSE Via [facility] QUICK [id number] 07/29/2014 18:18:00 07/29/2014 19:40:00 DIS Emergency STAHLHEIDI JOHNSON INTENSIVE CARE NURSE Via [facility] ER NAUSEA; 8 WKS [id number] 08/23/2013 17:45:00 08/23/2013 19:52:00 DIS Inpatient FENECH JENNA FOUNTAIN Via [facility] WS CONTRACTIONS [id number] 08/14/2013 10:00:00 08/15/2013 11:36:00 DIS Inpatient AMANDAECH JENNA FOUNTAIN Via [facility] WS LEAKING FLUID [id number] 03/19/2018 14:08:00 Document Registration [id number] 08/29/2010 23:16:00 Document Registration [email or web address] 02/22/2015 05:03:50 ACT Document Registration
--- NOTE | 2018-03-29 09:21 | History & Physical-OB ---
OB - Chief Complaint & HPI Date/Time Date of Admission: Date of Admission: Mar 29, 2018 at 12:19 am Time Seen by Provider: 09:00 Chief Complaint/History OB-Reason for Admission/Chief: contractions Hx : 3 Hx Para: 2 Expected Date of Delivery: Apr 30, 2018 Gestational Age in Weeks: 35 Other reason for admission: Patient admitted last night for contractions q 3-7 min and questionable heart rate tracing per RN. History of Labs A pos Antibody neg RI RPR NR HBsAg NR HIV NR GC neg GBS neg Allergies and Home Medications Allergies Coded Allergies: nitrofurantoin (Verified Allergy, Unknown, RASH, 02/13/15) Uncoded Allergies: bandaids (Allergy, Unknown, 02/24/15) Home Medications Albuterol Sulfate 1 Puff Puff, 2 PUFF IH Q4H 1 PUFF = 90 MCG Prescribed by: ARASELI MANRIQUE on 03/20/18 1052 Cephalexin 500 Mg Capsule, 500 MG PO BID Prescribed by: ARASELI MANRIQUE on 03/19/18 1531 Methylprednisolone 4 Mg Tab.ds.pk, 4 MG PO UD PER DOSE PACK INSTRUCTIONS Prescribed by: ARASELI MANRIQUE on 03/20/18 1052 Nicotine 1 Each Patch.td24, 14 MG TD DAILY Prescribed by: ARASELI MANRIQUE on 03/20/18 1054 Patient Home Medication List Home Medication List Reviewed: Yes OB - History Hx of Present Care: Yes Ultrasounds: Normal mid trimester US Obstetrical Complications: Other (Hx of PTL on 17OHP injections weekly from 16 weeks on) Medical Complications: None Obstetrical History Hx : 3 Hx Para: 2 Hx Termination: No Hx Complication: Yes (PTL, delivery at 32 wks) Hx Induced Hypertens: No Hx Maternal Gestational Diabet: No Delivery History Hx Dystocia: No Hx Large For Gestational Age I: No Hx Small for Gestational Age I: No Hx Section: No Hx Vaginal Delivery Post C-Sec: No Hx Blood Disorders: No Adverse Rxn to Tranfusion: No Patient Past Medical History Tobacco abuse Social History/Family History HIV/AIDS: No Recent Infectious Disease Expo: No Sexually Transmitted Disease: Yes (hx trich treated) Alcohol Use: Denies Use Recreational Drug Use: No Immunizations Hepatitis A: No Hepatitis B: No Tetanus Booster (TDap): More than 5yrs OB - Admission Exam Physical Exam Vitals: Vital Signs 03/28/18 03/29/18 23:00 07:00 Temp 98.4 Pulse 75 Resp 18 B/P (MAP) 110/64 (79) O2 Delivery Room Air HEENT: NCAT Heart: Rhythm Normal Lungs: Clear, Wheezes Abdomen: Non tender Reflexes: Normal Cervical Dilatation: 3cm Effacement: 75% Station: -2 Membranes: Intact Heart Rate: 130's Accelerations: Accelerations Present Decelerations: No Decelerations Short Term Variability: Present Group Home Variability: Average (6-25) Contractions on Admission: 6-10 Minutes Apart Intensity: Mild Labs Laboratory Tests Test 03/28/18 22:48 03/29/18 00:10 Range/Units Urine Color KRISTINA H Urine Clarity CLEAR Urine pH 6 5-9 Urine Specific [place] 1.025 H 1.016-1.022 Urine Protein 2+ H NEGATIVE Urine Glucose (UA) NEGATIVE NEGATIVE Urine Ketones 1+ H NEGATIVE Urine Nitrite NEGATIVE NEGATIVE Urine Bilirubin NEGATIVE NEGATIVE Urine Urobilinogen 4 H NORMAL MG/DL Urine Leukocyte Esterase 2+ H NEGATIVE Urine RBC (Auto) 1+ H NEGATIVE Urine RBC 0-2 /HPF Urine WBC 10-25 H /HPF Urine Squamous Epithelial Cells 25-50 H /HPF Urine Crystals NONE /LPF Urine Bacteria TRACE /HPF Urine Casts NONE /LPF Urine Mucus NEGATIVE /LPF Urine Culture Indicated YES White Blood Count 14.8 H 4.3-11.0 10^3/uL Red Blood Count 3.44 L 4.35-5.85 10^6/uL Hemoglobin 10.4 L 11.5-16.0 G/DL Hematocrit 30 L 35-52 % Mean Corpuscular Volume 87 80-99 FL Mean Corpuscular Hemoglobin 30 25-34 PG Mean Corpuscular Hemoglobin Concent 35 32-36 G/DL Red Cell Distribution Width 13.9 10.0-14.5 % Platelet Count 326 130-400 10^3/uL Mean Platelet Volume 10.2 7.4-10.4 FL Neutrophils (%) (Auto) 74 42-75 % Lymphocytes (%) (Auto) 20 12-44 % Monocytes (%) (Auto) 5 0-12 % Eosinophils (%) (Auto) 1 0-10 % Basophils (%) (Auto) 0 0-10 % Neutrophils # (Auto) 11.0 H 1.8-7.8 X 10^3 Lymphocytes # (Auto) 2.9 1.0-4.0 X 10^3 Monocytes # (Auto) 0.8 0.0-1.0 X 10^3 Eosinophils # (Auto) 0.1 0.0-0.3 10^3/uL Basophils # (Auto) 0.0 0.0-0.1 10^3/uL OB - Assessment/Plan/Diagnosis Assessment Assessment: IUP - , observation Admission Dx 27 yo @ 35 weeks contractions Hx of PTL and delivery at 33 weeks Tobacco use in Admission Status: Observation Plan Other Plan BPP ordered this AM, patient made no cervical change overnight, if BPP is reassuring will send home with labor precautions. JENNA MCGARRY DO Mar 29, 2018 9:21 am
[2018-03-29 10:30] VITALS: BP 105/66
--- NOTE | 2018-03-29 10:47 | Diagnostic Imaging Report ---
INDICATION: labor biophysical profile performed in a routine fashion. Fetus scored 2 out of 2 on breathing, movement, posture and tone, and amniotic fluid index. Amniotic fluid index is 13.2 cm. Placenta is grade 2 and posterior with no evidence of previa. heart rate is 165 beats per minute. IMPRESSION: biophysical profile score 8 out of 8. Dictated by: Dictated on workstation # [id number]
--- NOTE | 2018-04-01 09:36 | Physician Query-Final Dx ---
KAMILLE FREY 04/01/18 0936: Final Diagnosis Give Final Diagnosis Please give Final Diagnosis JENNA MCGARRY DO 04/02/18 0854: Final Diagnosis Give Final Diagnosis 35 week IUP contractions KAMILLE FREY Apr 01, 2018 09:36 JENNA MCGARRY DO Apr 02, 2018 08:54
--- OUTSIDE RECORDS SUMMARY | 2018-04-01 15:28 | XMS REPORT | Continuity of Care Document ---
Author Author [facility] Address Unknown Phone Unavailable Allergies Active Description Code Type Severity Reaction Onset Reported/Identified Relationship to Patient Clinical Status Yes traZODONE Drug Allergy 05/03/2011 Yes traZODONE Drug Allergy N/A N/A 05/03/2011 Yes Nitrofurantoin Drug Allergy N /A N/A 03/15/2013 Yes nitrofurantoin [id number] Drug Allergy Unknown RASH 02/13/2015 Yes bandaids [...] DO K 461.9 SINUSITIS ACUTE 07/09/2010 BEV PLEITZE DO K V25.41 SURVEILLANCE OF CONTRACEPTIVE PILL 07/09/2010 BEV PLEITEZ DO K 461.9 SINUSITIS ACUTE 07/09/2010 ARI PLEITEZ DOA K V25.41 SURVEILLANCE OF CONTRACEPTIVE [...] 133.0 SCABIES 06/28/2011 133.0 SCABIES 06/28/2011 ZAC SHOPPER MARKETING MANAGER, NEHA A 133.0 SCABIES 06/28/2011 ENEDELIA SAMS [...] V22.0 , NORMAL FIRST 03/07/2013 PLEITEZ DO, EBV K V22.0 , NORMAL FIRST 03/15/2013 995.27 [...] BEV K 724.2 BACK PAIN, LOWER 07/29/2014 HEIID STAHL SHOPPER MARKETING MANAGER Ot 599.0 URIN TRACT INFECTION NOS 07/29/2014 HEIDI STAHL SHOPPER MARKETING MANAGER Ot 646.63 INFECTION-ANTEPARTUM 07/29/2014 HEIDI STAHL APRN [...] Ot V27.0 DELIVER-SINGLE LIVEBORN 12/06/2015 HEIDI STAHL SHOPPER MARKETING MANAGER Ot S61.210A LACERATION W/O FB OF R IDX FNGR W/O GHULAM 12/06/2015 HEIDI STAHL SHOPPER MARKETING MANAGER Ot W26.0XXA CONTACT WITH KNIFE, INITIAL ENCOUNTER 12/06/2015 HEIDI STAHL SHOPPER MARKETING MANAGER Ot Y92.010 KITCHEN OF SINGLE-FAMILY (PRIVATE) HOUSE 12/06/2015 HEIDI STAHL SHOPPER MARKETING MANAGER Ot Y93.G1 ACTIVITY, FOOD PREPARATION AND CLEAN UP 12/06/2015 HEIDI STAHL SHOPPER MARKETING MANAGER Ot Y99.8 OTHER EXTERNAL CAUSE STATUS 12/07/2015 HEIDI STAHL APRN Ot S61.210A LACERATION W/O FB OF R IDX FNGR W/O GHULAM 12/07/2015 HEIDI STAHL APRN Ot W26.0XXA CONTACT WITH KNIFE, INITIAL ENCOUNTER 12/07/2015 HEIDI STAHL APRN Ot Y92.010 KITCHEN OF SINGLE-FAMILY (PRIVATE) HOUSE 12/07/2015 HEIDI STAHL SHOPPER MARKETING MANAGER Ot Y93.G1 ACTIVITY, FOOD PREPARATION AND CLEAN UP 12/07/2015 HEIDI STAHL SHOPPER MARKETING MANAGER Ot Y99.8 OTHER EXTERNAL CAUSE STATUS 03/07/2016 FENECH DO, JENNA S Ot R10.2 PELVIC AND PERINEAL PAIN 03/10/2016 AMANDAECH DOJENNA S Ot R10.2 PELVIC AND PERINEAL PAIN 03/13/2016 ZEFERINO FOUNTAIN JENNA S Ot R10.2 PELVIC AND PERINEAL PAIN 03/13/2016 HEIDI STAHL SHOPPER MARKETING MANAGER Ot M54.2 CERVICALGIA 03/13/2016 HEIDI STAHL SHOPPER MARKETING MANAGER Ot M54.5 LOW BACK PAIN 03/13/2016 HEIDI STAHL SHOPPER MARKETING MANAGER Ot M79.621 PAIN IN RIGHT UPPER ARM 03/13/2016 HEIDI STAHL SHOPPER MARKETING MANAGER Ot N39.0 URINARY TRACT INFECTION, SITE NOT SPECIF 04/11/2016 ZEFERINO FOUNTAIN JENNA S Ot R10.2 PELVIC AND PERINEAL PAIN 04/22/2016 HEIDI STAHL SHOPPER MARKETING MANAGER Ot M54.2 CERVICALGIA 04/22/2016 HEIDI STAHL SHOPPER MARKETING MANAGER Ot M54.5 LOW BACK PAIN 04/22/2016 HEIDI STAHL SHOPPER MARKETING MANAGER Ot M79.621 PAIN IN RIGHT UPPER ARM 04/22/2016 HEIDI STAHL SHOPPER MARKETING MANAGER Ot N39.0 URINARY TRACT INFECTION, SITE NOT SPECIF 04/23/2016 ZEFERINO FOUNTAIN JENNA S Ot R10.2 PELVIC AND PERINEAL PAIN 08/25/2017 HEIDI STAHL SHOPPER MARKETING MANAGER Ot F31.9 BIPOLAR DISORDER, UNSPECIFIED 08/25/2017 HEIDI STAHL SHOPPER MARKETING MANAGER Ot F41.9 ANXIETY DISORDER, UNSPECIFIED 08/25/2017 HEIDI STAHL SHOPPER MARKETING MANAGER Ot J45.909 UNSPECIFIED ASTHMA, UNCOMPLICATED 08/25/2017 HEIDI STAHL SHOPPER MARKETING MANAGER Ot K02.9 DENTAL CARIES, UNSPECIFIED 08/25/2017 HEIDI STAHL SHOPPER MARKETING MANAGER Ot K08.89 OTHER SPECIFIED DISORDERS OF TEETH AND S 08/25/2017 HEIDI STAHL SHOPPER MARKETING MANAGER Ot Z82.49 FAMILY HX OF ISCHEM HEART DIS AND OTH DI 08/25/2017 HEIDI STAHL SHOPPER MARKETING MANAGER Ot Z88.1 ALLERGY STATUS TO OTHER ANTIBIOTIC AGENT 12/03/2017 AMANDAECH JENNA FOUNTAIN S Ot Z36.89 ENCOUNTER FOR OTHER SPECIFIED 12/03/2017 FENECH DOJENNA S Ot Z3A.18 18 WEEKS GESTATION OF 12/15/2017 JENNA MCGARRY DO S Ot Z36.89 ENCOUNTER FOR OTHER SPECIFIED 12/15/2017 AMANDAECH JENNA FOUNTAIN S Ot Z3A.18 18 WEEKS GESTATION OF Procedures Code Description [place] [address] UA W/ CULTURE IF INDICATED 08/05/2012 16437 CULTURE URINE 08/05/2012 61324 SYPHILIS TEST 08/11/2012 92205 HIV ANTIBODIES (RML) 08/11/2012 40435 CULTURE UROGENITAL 08/11/2012 08737 GC/CHLAM PROBE (STATE) 08/11/2012 76022 TRICHOMONAS (IN-HOUSE) 08/11/2012 04361 ROUTINE VENIPUNCTURE 03/07/2013 50443 URINE DRUG SCREEN (IN-HOUSE ) 03/07/2013 17548 CBC 03/07/2013 08530 TSH 03/07/2013 20769 HIV ANTIBODIES (RML) 03/07/2013 88998 BLOOD TYPE/Rh FACTOR 03/08/2013 5495085 ANTIBODY SCREEN (RESULT ONLY) 03/08/2013 31133 RUBELLA ANTIBODY, IGG 03/08/2013 46792 CULTURE URINE 03/09/2013 97091 SYPHILLIS-STATE LAB 03/09/2013 07614 ANTIBODY SCREEN (order) 03/09/2013 48091 HEP B SURFACE ANTIGEN (STATE ) 03/09/2013 74397 UA LONG DIP 03/15/2013 53860 UA W/ CULTURE IF INDICATED 05/30/2013 26840 CULTURE URINE 05/31/2013 08654 TEST, URINE (IN- HOUSE) 07/17/2014 75.69 02/22/2015 [...] culture - 03/13/16 15:42 Bacterial urine culture [id number] NRG COLONY COUNT >100,000/ML NRG FTX;REPORTABLE SENSITIVITY [...] 08:41 Hemoglobin A1c 5.4 % 4.8-5.6 Thyroid Mobile Profile - 04/25/16 08:41 TSH 2.340 uIU/mL [...] Status Pt. Type Provider Facility Loc./Unit Complaint [id number] 07/17/2014 15:04:00 07/17/2014 23:59:59 CLS Outpatient BEV PLEITEZ DO [id number] 02/03/2014 14:50:00 02/03/2014 23:59:59 CLS Outpatient BEV PLEITEZ DO [id number] 10/25/2013 14:43:00 10/25/2013 23:59:59 CLS Outpatient JACQUE SAMS APRN [id number] 05/30/2013 08:36:00 05/30/2013 23:59:59 CLS Outpatient NEHA FRANK APRN [id number] 08/11/2012 10:40:00 08/11/2012 23:59:59 CLS Outpatient BEV PLEITEZ DO [id number] 08/05/2012 12:46:00 08/05/2012 23:59:59 CLS Outpatient [id number] 09/04/2011 11:59:00 09/04/2011 23:59:59 CLS Outpatient HEMAL COLEMAN APRN [id number] 03/15/2013 10:19:00 Document Registration [id number] 03/07/2013 10:38:00 Document Registration [id number] 08/27/2017 16:40:00 08/27/2017 23:59:59 CLS Outpatient [facility] [id number] 08/27/2017 16:40:00 Document Registration [id number] 04/26/2016 13:05:00 Document Registration [id number] 12/02/2017 10:34:00 12/02/2017 23:59:59 CLS Outpatient JENNA MCGARRY DO [facility] RAD Z33.1 [id number] 08/25/2017 15:05:00 08/25/2017 15:38:00 DIS Emergency HEIDI STAHL APRN [facility] ER DENTAL PAIN [id number] 03/13/2016 15:23:00 03/13/2016 16:25:00 DIS Emergency HEIDI STAHL APRN [facility] ER NECK AND BACK INJ [id number] 03/06/2016 15:14:00 03/06/2016 23:59:59 CLS Outpatient JENNA MCGARRY DO [facility] RAD ACUTE PELVIC PAIN [id number] 12/06/2015 10:25:00 12/06/2015 10:53:00 DIS Emergency HEIDI STAHL APRN [facility] ER RIGHT POINTER LAC [id number] 02/22/2015 07:00:00 02/24/2015 15:20:00 DIS Inpatient JENNA MCGARRY DO [facility] LDRP LABOR [id number] 02/13/2015 19:04:00 02/13/2015 20:41:00 DIS Outpatient JENNA MCGARRY DO [facility] WSo C/O LEAKING FLUID [id number] 02/04/2015 15:19:00 02/04/2015 16:09:00 DIS Outpatient SMITH DURON, MENDY Cornell [facility] WSo CONTRACTIONS [id number] 09/04/2014 17:19:00 09/04/2014 23:59:59 CLS Outpatient KAMILLE SHEPHERD SHOPPER MARKETING MANAGER [facility] QUICK [id number] 07/29/2014 18:18:00 07/29/2014 19:40:00 DIS Emergency STAHLHEIDI JOHNSON SHOPPER MARKETING MANAGER Via [facility] ER NAUSEA; 8 WKS [id number] 08/23/2013 17:45:00 08/23/2013 19:52:00 DIS Inpatient FENECH JENNA FOUNTAIN Via [facility] WS CONTRACTIONS [id number] 08/14/2013 10:00:00 08/15/2013 11:36:00 DIS Inpatient AMANDAECH JENNA FOUNTAIN Via [facility] WS LEAKING FLUID [id number] 03/19/2018 14:08:00 Document Registration [id number] 08/29/2010 23:16:00 Document Registration [email or web address] 02/22/2015 05:03:50 ACT Document Registration
== END 2018-03-29 10:24 | disposition home or self-care (01) ==
LOC: WSo 22:35 → LDRP 22:37 → WSo 03-29 00:19 → LDRP 03-29 00:19 → UNDOADMIN 03-29 00:19 → UNDOFXCLIACCOM 03-29 00:19 → UNDOFXCLIRRACCOM 03-29 00:19 → UNDODISIN 03-29 10:30 → EDSTATUS 04-01 14:35
PROVIDERS: ADMIT Obstetrics & Gynecology; ATTEND Obstetrics & Gynecology
DX: O60.03 Preterm labor without delivery, third trimester (principal); O99.333 Smoking (tobacco) complicating pregnancy, third trimester; F17.210 Nicotine dependence, cigarettes, uncomplicated; Z3A.35 35 weeks gestation of pregnancy
CPT/HCPCS: 36415; 76819; 81000; 85025; 86850; 86900; 86901; 87088; 96361; 96374; 96376; G0378

== ENCOUNTER 2018-04-03 23:42 | Outpatient (CLI) | payer MEDICAID ==
[~2018-04-03] VITALS: Ht 162.6 cm; Wt 57.8 kg
[2018-04-04 00:21] VITALS: BP 115/69
[2018-04-04 00:30] VITALS: BP 115/69
--- NOTE | 2018-04-05 22:19 | Physician Query-Final Dx ---
KAVYA CASTELLANO 04/05/18 2219: Clinic Account Progress/Dx Physician Query: Please give diagnosis Please provide diagnosis and weeks of gestation. Date of Service Apr 03, 2018 at 23:42 MENDY MTZ MD 04/06/18 1750: Clinic Account Progress/Dx DIAGNOSIS: Diagnosis 35 WEEKS PATIENT OF KAVYA PAN Apr 05, 2018 22:19 MENDY MTZ MD Apr 06, 2018 17:50
== END 2018-04-04 00:30 | disposition home or self-care (01) ==
LOC: WSo 23:42 → LDRP 23:42 → WSo 04-04 00:30
PROVIDERS: ATTEND Obstetrics & Gynecology
DX: O99.89 Other specified diseases and conditions complicating pregnancy, childbirth and the puerperium (principal); Z3A.35 35 weeks gestation of pregnancy
CPT/HCPCS: 99212

== ENCOUNTER 2018-04-07 00:50 | Outpatient (CLI) | payer MEDICAID ==
[~2018-04-07] VITALS: Ht 162.6 cm; Wt 58.5 kg
[2018-04-07 01:03] VITALS: BP 111/73
[2018-04-07 01:22] LABS: BILIRUBIN,URINE NEGATIVE (NEGATIVE); CLARITY,URINE CLEAR; COLOR,URINE YELLOW; GLUCOSE, URINE (UA) NEGATIVE (NEGATIVE); KETONES,URINE NEGATIVE (NEGATIVE); LEUKOCYTE ESTERASE ,URINE 1+ (NEGATIVE); NITRITE,URINE NEGATIVE (NEGATIVE); PH,URINE 8 (5-9); PROTEIN,URINE NEGATIVE (NEGATIVE); UROBILINOGEN,URINE NORMAL (NORMAL)
[2018-04-07 01:28] VITALS: BP 109/74
[2018-04-07 01:36] LABS: BACTERIA,URINE TRACE /HPF; WBC,URINE 0-2 /HPF
[2018-04-07 02:08] VITALS: BP 102/60
[2018-04-07 02:28] VITALS: BP 104/70
[2018-04-07 06:36] VITALS: BP 102/59
[2018-04-07 06:40] VITALS: BP 102/59
--- NOTE | 2018-04-08 13:15 | Physician Query-Final Dx ---
WESTON GORMAN 04/08/18 1315: Clinic Account Progress/Dx Physician Query: Please give a diagnosis and the weeks of gestation thank you Date of Service Apr 07, 2018 at 00:50 ARASELI MANRIQUE DO 04/28/18 1520: Clinic Account Progress/Dx DIAGNOSIS: Diagnosis 36 weeks contractions WESTON GORMAN Apr 08, 2018 13:15 ARASELI MANRIQUE DO Apr 28, 2018 15:20
== END 2018-04-07 06:40 | disposition home or self-care (01) ==
LOC: LDRP 00:50 → WSo 00:50 → LDRP 01:00 → WSo 06:40
PROVIDERS: ATTEND Obstetrics & Gynecology
DX: O60.03 Preterm labor without delivery, third trimester (principal); Z3A.36 36 weeks gestation of pregnancy
CPT/HCPCS: 81000; 99214

== ENCOUNTER 2018-04-10 01:12 | Inpatient (IN) | payer MEDICAID ==
[~2018-04-10] VITALS: Ht 162.6 cm; Wt 58.5 kg
[2018-04-10] VITALS (43 sets, daily range): BP systolic 100–121; BP diastolic 57–86
[2018-04-10 01:31] LABS: BILIRUBIN,URINE NEGATIVE (NEGATIVE); CLARITY,URINE SLIGHTLY CLOUDY; COLOR,URINE YELLOW; GLUCOSE, URINE (UA) NEGATIVE (NEGATIVE); KETONES,URINE NEGATIVE (NEGATIVE); LEUKOCYTE ESTERASE ,URINE NEGATIVE (NEGATIVE); NITRITE,URINE NEGATIVE (NEGATIVE); PH,URINE 7 (5-9); PROTEIN,URINE NEGATIVE (NEGATIVE); UROBILINOGEN,URINE NORMAL (NORMAL)
[2018-04-10 01:42] LABS: BACTERIA,URINE NEGATIVE /HPF; RBC,URINE RARE /HPF; RENAL EPITHELIAL CELLS,URINE 0-2 /HPF
--- OUTSIDE RECORDS SUMMARY | 2018-04-10 06:11 | XMS REPORT | Continuity of Care Document ---
Author Author [facility] Address Unknown Phone Unavailable Allergies Active Description Code Type Severity Reaction Onset Reported/Identified Relationship to Patient Clinical Status Yes traZODONE Drug Allergy 05/03/2011 Yes traZODONE Drug Allergy N/A N/A 05/03/2011 Yes Nitrofurantoin Drug Allergy N /A N/A 03/15/2013 Yes bandaids bandaids Unknown N/A 02/24/2015 Yes nitrofurantoin [id number] Drug Allergy Unknown RASH 04/10/2018 Medications There is no data. Problems Date [...] JOINT INVOLVING ANKLE AND FOOT 05/09/2010 JACQUE SASM APRN 473.9 SINUSITIS (CHRONIC) 05/09/2010 JACQUE SAMS [...] 133.0 SCABIES 06/28/2011 133.0 SCABIES 06/28/2011 ZAC SENIOR RADIATION PROTECTION TECHNICIAN, NEHA A 133.0 SCABIES 06/28/2011 ENEDELIA SAMS [...] 724.2 BACK PAIN, LOWER 07/29/2014 HEIDI STAHL SENIOR RADIATION PROTECTION TECHNICIAN Ot 599.0 URIN TRACT INFECTION NOS 07/29/2014 HEIDI STAHL SENIOR RADIATION PROTECTION TECHNICIAN Ot 646.63 INFECTION-ANTEPARTUM 07/29/2014 HEIDI STAHL APRN [...] Ot V27.0 DELIVER-SINGLE LIVEBORN 12/06/2015 HEIDI STAHL SENIOR RADIATION PROTECTION TECHNICIAN Ot S61.210A LACERATION W/O FB OF R IDX FNGR W/O GHULAM 12/06/2015 HEIDI STAHL SENIOR RADIATION PROTECTION TECHNICIAN Ot W26.0XXA CONTACT WITH KNIFE, INITIAL ENCOUNTER 12/06/2015 HEIDI STAHL SENIOR RADIATION PROTECTION TECHNICIAN Ot Y92.010 KITCHEN OF SINGLE-FAMILY (PRIVATE) HOUSE 12/06/2015 HEIDI STAHL SENIOR RADIATION PROTECTION TECHNICIAN Ot Y93.G1 ACTIVITY, FOOD PREPARATION AND CLEAN UP 12/06/2015 HEIDI STAHL SENIOR RADIATION PROTECTION TECHNICIAN Ot Y99.8 OTHER EXTERNAL CAUSE STATUS 12/07/2015 HEIDI STAHL APRN Ot S61.210A LACERATION W/O FB OF R IDX FNGR W/O GHULAM 12/07/2015 HEIDI STAHL APRN Ot W26.0XXA CONTACT WITH KNIFE, INITIAL ENCOUNTER 12/07/2015 HEIDI STAHL APRN Ot Y92.010 KITCHEN OF SINGLE-FAMILY (PRIVATE) HOUSE 12/07/2015 HEIDI STAHL SENIOR RADIATION PROTECTION TECHNICIAN Ot Y93.G1 ACTIVITY, FOOD PREPARATION AND CLEAN UP 12/07/2015 HEIDI STAHL SENIOR RADIATION PROTECTION TECHNICIAN Ot Y99.8 OTHER EXTERNAL CAUSE STATUS 03/07/2016 FENECH DO, JENNA S Ot R10.2 PELVIC AND PERINEAL PAIN 03/10/2016 AMANDAECH DOJENNA S Ot R10.2 PELVIC AND PERINEAL PAIN 03/13/2016 ZEFERINO FOUNTAIN JENNA S Ot R10.2 PELVIC AND PERINEAL PAIN 03/13/2016 HEIDI STAHL SENIOR RADIATION PROTECTION TECHNICIAN Ot M54.2 CERVICALGIA 03/13/2016 HEIDI STAHL SENIOR RADIATION PROTECTION TECHNICIAN Ot M54.5 LOW BACK PAIN 03/13/2016 HEIDI STAHL SENIOR RADIATION PROTECTION TECHNICIAN Ot M79.621 PAIN IN RIGHT UPPER ARM 03/13/2016 HEIDI STAHL SENIOR RADIATION PROTECTION TECHNICIAN Ot N39.0 URINARY TRACT INFECTION, SITE NOT SPECIF 04/11/2016 ZEFERINO FOUNTAIN JENNA S Ot R10.2 PELVIC AND PERINEAL PAIN 04/22/2016 HEIDI STAHL SENIOR RADIATION PROTECTION TECHNICIAN Ot M54.2 CERVICALGIA 04/22/2016 HEIDI STAHL SENIOR RADIATION PROTECTION TECHNICIAN Ot M54.5 LOW BACK PAIN 04/22/2016 HEIDI STAHL SENIOR RADIATION PROTECTION TECHNICIAN Ot M79.621 PAIN IN RIGHT UPPER ARM 04/22/2016 HEIDI STAHL SENIOR RADIATION PROTECTION TECHNICIAN Ot N39.0 URINARY TRACT INFECTION, SITE NOT SPECIF 04/23/2016 ZEFERINO FOUNTAIN JENNA S Ot R10.2 PELVIC AND PERINEAL PAIN 08/25/2017 HEIDI STAHL SENIOR RADIATION PROTECTION TECHNICIAN Ot F31.9 BIPOLAR DISORDER, UNSPECIFIED 08/25/2017 HEIDI STAHL SENIOR RADIATION PROTECTION TECHNICIAN Ot F41.9 ANXIETY DISORDER, UNSPECIFIED 08/25/2017 HEIDI STAHL SENIOR RADIATION PROTECTION TECHNICIAN Ot J45.909 UNSPECIFIED ASTHMA, UNCOMPLICATED 08/25/2017 HEIDI STAHL SENIOR RADIATION PROTECTION TECHNICIAN Ot K02.9 DENTAL CARIES, UNSPECIFIED 08/25/2017 HEIDI STAHL SENIOR RADIATION PROTECTION TECHNICIAN Ot K08.89 OTHER SPECIFIED DISORDERS OF TEETH AND S 08/25/2017 HEIDI STAHL SENIOR RADIATION PROTECTION TECHNICIAN Ot Z82.49 FAMILY HX OF ISCHEM HEART DIS AND OTH DI 08/25/2017 HEIDI STAHL SENIOR RADIATION PROTECTION TECHNICIAN Ot Z88.1 ALLERGY STATUS TO OTHER ANTIBIOTIC AGENT 12/03/2017 ZEFERINO FOUNTAIN JENNA S Ot Z36.89 ENCOUNTER FOR OTHER SPECIFIED 12/03/2017 ZEFERINO DO JENNA S Ot Z3A.18 18 WEEKS GESTATION OF 12/15/2017 ZEFERINO FOUNTAIN JENNA S Ot Z36.89 ENCOUNTER FOR OTHER SPECIFIED 12/15/2017 ZEFERINO FOUNTAIN JENNA S Ot Z3A.18 18 WEEKS GESTATION OF 03/19/2018 ZEFERINO FOUNTAIN JENNA S Ot Z36.89 ENCOUNTER FOR OTHER SPECIFIED 03/19/2018 ZEFERINO DO JENNA S Ot Z3A.18 18 WEEKS GESTATION OF 03/20/2018 ZEFERINO FOUNTAIN JENNA S Ot F17.210 NICOTINE DEPENDENCE, CIGARETTES, UNCOMPL 03/20/2018 ZEFERINO FOUNTAIN JENNA S Ot O23.43 UNSP INFCT OF URINARY TRACT IN 03/20/2018 ZEFERINO FOUNTAIN JENNA S Ot O47.03 FALSE LABOR BEFORE 37 COMPLETED WEEKS OF 03/20/2018 ZEFERINO FOUNTAIN JENNA S Ot O99.333 SMOKING (TOBACCO) COMPLICATING 03/20/2018 ZEFERINO FOUNTAIN JENNA S Ot R06.2 WHEEZING 03/20/2018 ZEFERINO FOUNTAIN JENNA S Ot Z3A.34 34 WEEKS GESTATION OF 03/29/2018 ZEFERINO FOUNTAIN JENNA S Ot F17.210 NICOTINE DEPENDENCE, CIGARETTES, UNCOMPL 03/29/2018 ZEFERINO FOUNTAIN JENNA S Ot O60.03 LABOR WITHOUT DELIVERY, THIRD TR 03/29/2018 ZEFERINO FOUNTAIN JENNA S Ot O99.333 SMOKING (TOBACCO) COMPLICATING 03/29/2018 ZEFERINO FOUNTAIN JENNA S Ot Z3A.35 35 WEEKS GESTATION OF 03/29/2018 ZEFERINO FOUNTAINJENNA S Ot F17.210 NICOTINE DEPENDENCE, CIGARETTES, UNCOMPL 03/29/2018 ZEFERINO DO, JENNA S Ot O60.03 LABOR WITHOUT DELIVERY, THIRD TR 03/29/2018 FENECH JENNA FOUNTAIN Ot O99.333 SMOKING (TOBACCO) COMPLICATING 03/29/2018 FENECH JENNA FOUNTAIN Ot Z3A.35 35 WEEKS GESTATION OF 04/07/2018 MENDY MTZ MD Ot O99.89 OTH DISEASES AND CONDITIONS COMPL PREG/C 04/07/2018 MENDY MTZ MD, Ot Z3A.35 35 WEEKS GESTATION OF Procedures Code Description [place] [address] UA W/ CULTURE IF INDICATED 08/05/2012 31382 CULTURE URINE 08/05/2012 99005 SYPHILIS TEST 08/11/2012 49342 HIV ANTIBODIES (RML) 08/11/2012 41290 CULTURE UROGENITAL 08/11/2012 89775 GC/CHLAM PROBE (STATE) 08/11/2012 84327 TRICHOMONAS (IN-HOUSE) 08/11/2012 64593 ROUTINE VENIPUNCTURE 03/07/2013 04662 URINE DRUG SCREEN (IN-HOUSE ) 03/07/2013 14861 CBC 03/07/2013 63086 TSH 03/07/2013 19797 HIV ANTIBODIES (RML) 03/07/2013 98225 BLOOD TYPE/Rh FACTOR 03/08/2013 1396960 ANTIBODY SCREEN (RESULT ONLY) 03/08/2013 59951 RUBELLA ANTIBODY, IGG 03/08/2013 28347 CULTURE URINE 03/09/2013 34866 SYPHILLIS-STATE LAB 03/09/2013 29310 ANTIBODY SCREEN (order) 03/09/2013 52078 HEP B SURFACE ANTIGEN (STATE ) 03/09/2013 13515 UA LONG DIP 03/15/2013 30751 UA W/ CULTURE IF INDICATED 05/30/2013 84540 CULTURE URINE 05/31/2013 27019 TEST, URINE (IN- HOUSE) 07/17/2014 75.69 02/22/2015 [...] culture - 03/13/16 15:42 Bacterial urine culture [id number] NRG COLONY COUNT >100,000/ML NRG FTX;REPORTABLE SENSITIVITY [...] 08:41 Hemoglobin A1c 5.4 % 4.8-5.6 Thyroid [place] Profile - 04/25/16 08:41 TSH 2.340 uIU/mL [...] urinalysis with reflex to culture YES NRG Bacterial urine culture - 03/19/18 13:45 Bacterial urine culture [id number] NRG COLONY COUNT . NRG FTX;REPORTABLE 40,000 CFU/ML NRG FREE TEXT ENTRY 2 NO SUSCEPTIBILITY PERFORMED NRG FREE TEXT ENTRY 3 RML SENT REPORT 03/20 14:05 NRG Complete blood count (CBC) with automated [...] blood basophil count (count/volume) 0.0 10*3/uL 0.0-0.1 Complete urinalysis with reflex to culture - 03/28/18 22:48 Urine color determination KRISTINA NRG Urine clarity determination CLEAR NRG Urine pH measurement by test strip 6 5-9 Specific gravity of urine by test strip 1.025 1.016- 1.022 Urine protein assay by test strip, semi-quantitative 2+ NEGATIVE Urine glucose detection by automated test strip NEGATIVE NEGATIVE Erythrocytes detection in urine sediment by light microscopy 1+ NEGATIVE Urine ketones detection by automated test strip 1+ NEGATIVE Urine nitrite detection by test strip NEGATIVE NEGATIVE Urine total bilirubin detection by test strip NEGATIVE NEGATIVE Urine urobilinogen measurement by automated test strip (mass/volume) 4 mg/dL NORMAL Urine leukocyte esterase detection by dipstick 2+ NEGATIVE Automated urine sediment erythrocyte count by microscopy (number/high power field) [HPF] NRG Automated urine sediment leukocyte count by microscopy (number/high power field ) [HPF] NRG Bacteria detection in urine sediment by light microscopy TRACE NRG Squamous epithelial cells detection in urine sediment by light microscopy 25-50 NRG Crystals detection in urine sediment by light microscopy NONE NRG Casts detection in urine sediment by light microscopy NONE NRG Mucus detection in urine sediment by light microscopy NEGATIVE NRG Complete urinalysis with reflex to culture YES NRG Bacterial urine culture - 03/28/18 22:48 Bacterial urine culture SEE COMMEN NRG COLONY COUNT . NRG Complete blood count (CBC) with automated white blood cell (WBC) differential - 03/29/18 00:10 Blood leukocytes automated count (number/volume) 14.8 10*3/uL 4.3-11.0 Blood erythrocytes automated count (number/volume) 3.44 10*6/uL 4.35-5.85 Venous blood hemoglobin measurement (mass/volume) 10.4 g/dL 11.5-16.0 Blood hematocrit (volume fraction) 30 % 35-52 Automated erythrocyte mean corpuscular volume 87 [foz_us] 80-99 Automated erythrocyte mean corpuscular hemoglobin (mass per erythrocyte) 30 pg 25-34 Automated erythrocyte mean corpuscular hemoglobin concentration measurement ( mass/volume) 35 g/dL 32-36 Automated erythrocyte distribution width ratio 13.9 % 10.0-14.5 Automated blood platelet count (count/volume) 326 10*3/uL 130-400 Automated blood platelet mean volume measurement 10.2 [foz_us] 7.4-10.4 Automated blood neutrophils/100 leukocytes 74 % 42-75 Automated blood lymphocytes/100 leukocytes 20 % 12-44 Blood monocytes/100 leukocytes 5 % 0-12 Automated blood eosinophils/100 leukocytes 1 % 0-10 Automated blood basophils/100 leukocytes 0 % 0-10 Blood neutrophils automated count (number/volume) 11.0 10*3 1.8-7.8 Blood lymphocytes automated count (number/volume) 2.9 10*3 1.0-4.0 Blood monocytes automated count (number/volume) 0.8 10*3 0.0-1.0 Automated eosinophil count 0.1 10*3/uL 0.0-0.3 Automated blood basophil count (count/volume) 0.0 10*3/uL 0.0-0.1 Blood type T Indirect antibody screen panel - 03/29/18 00:10 ABO+Rh group AP NRG Transfusion band number [id number] NRG Blood group antibody screen NEGATIVE NRG Complete urinalysis with reflex to culture - 04/07/18 01:00 Urine color determination YELLOW NRG Urine clarity determination CLEAR NRG Urine pH measurement by test strip 8 5-9 Specific gravity of urine by test strip 1.010 1.016- 1.022 Urine protein assay by test strip, semi-quantitative NEGATIVE NEGATIVE Urine glucose detection by automated test strip NEGATIVE NEGATIVE Erythrocytes detection in urine sediment by light microscopy 4+ NEGATIVE Urine ketones detection by automated test strip NEGATIVE NEGATIVE Urine nitrite detection by test strip NEGATIVE NEGATIVE Urine total bilirubin detection by test strip NEGATIVE NEGATIVE Urine urobilinogen measurement by automated test strip (mass/volume) NORMAL NORMAL Urine leukocyte esterase detection by dipstick 1+ NEGATIVE Automated urine sediment erythrocyte count by microscopy (number/high power field) NONE NRG Automated urine sediment leukocyte count by microscopy (number/high power field ) [HPF] NRG Bacteria detection in urine sediment by light microscopy TRACE NRG Squamous epithelial cells detection in urine sediment by light microscopy 5-10 NRG Crystals detection in urine sediment by light microscopy NONE NRG Casts detection in urine sediment by light microscopy NONE NRG Mucus detection in urine sediment by light microscopy SMALL NRG Complete urinalysis with reflex to culture NO NRG Complete urinalysis with reflex to culture - 04/10/18 01:20 Urine color determination YELLOW NRG Urine clarity determination SLIGHTLY CLOUDY NRG Urine pH measurement by test strip 7 5-9 Specific gravity of urine by test strip 1.005 1.016- 1.022 Urine protein assay by test [...] urobilinogen measurement by automated test strip (mass/volume) NORMAL NORMAL Urine leukocyte esterase detection by dipstick NEGATIVE NEGATIVE Automated urine sediment erythrocyte count by microscopy (number/high power field) RARE NRG Automated urine sediment leukocyte count by microscopy (number/high power field ) NONE NRG Bacteria detection in urine sediment by light microscopy NEGATIVE NRG Squamous epithelial cells detection in urine sediment by light microscopy 2-5 NRG Crystals detection in urine sediment by light microscopy NONE NRG Casts detection in urine sediment by light microscopy NONE NRG Mucus detection in urine sediment by light microscopy NEGATIVE NRG Complete urinalysis with reflex to culture NO NRG Renal epithelial cells detection in urine sediment by light microscopy 0-2 NRG Encounters ACCT No. Visit Date/Time Discharge Status Pt. Type Provider Facility Loc./Unit Complaint [id number] 07/17/2014 15:04:00 07/17/2014 23:59:59 CLS Outpatient BEV PLEITEZ DO [id number] 02/03/2014 14:50:00 02/03/2014 23:59:59 CLS Outpatient BEV PLEITEZ DO [id number] 10/25/2013 14:43:00 10/25/2013 23:59:59 CLS Outpatient JACQUE SAMS APRN [id number] 05/30/2013 08:36:00 05/30/2013 23:59:59 CLS Outpatient NEHA FRANK APRN [id number] 08/11/2012 10:40:00 08/11/2012 23:59:59 CLS Outpatient BEV PLEITEZ DO [id number] 08/05/2012 12:46:00 08/05/2012 23:59:59 CLS Outpatient [id number] 09/04/2011 11:59:00 09/04/2011 23:59:59 CLS Outpatient HEMAL COLEMAN APRN [id number] 03/15/2013 10:19:00 Document Registration [id number] 03/07/2013 10:38:00 Document Registration [id number] 08/27/2017 16:40:00 08/27/2017 23:59:59 CLS Outpatient [facility] [id number] 08/27/2017 16:40:00 Document Registration [id number] 04/26/2016 13:05:00 Document Registration [id number] 04/07/2018 00:50:00 04/07/2018 06:40:00 DIS Outpatient ARASELI MANRIQUE DO [facility] WSo CONTRACTIONS [id number] 04/03/2018 23:42:00 04/04/2018 00:30:00 DIS [facility] [id number] 03/28/2018 22:40:00 03/29/2018 10:24:00 DIS Inpatient JENNA MCGARRY DO [facility] LDRP CONTRACTIONS [id number] 03/19/2018 12:45:00 03/20/2018 10:52:00 DIS Outpatient JENNA MCGARRY DO [facility] LDRP CONTRACTIONS [id number] 12/02/2017 10:34:00 12/02/2017 23:59:59 CLS Outpatient JENNA MCGARRY DO [facility] RAD Z33.1 [id number] 08/25/2017 15:05:00 08/25/2017 15:38:00 DIS Emergency HEIDI STAHL APRN [facility] ER DENTAL PAIN [id number] 03/13/2016 15:23:00 03/13/2016 16:25:00 DIS Emergency HEIDI STAHL APRN [facility] ER NECK AND BACK INJ [id number] 03/06/2016 15:14:00 03/06/2016 23:59:59 CLS Outpatient JENNA MCGARRY DO [facility] RAD ACUTE PELVIC PAIN [id number] 12/06/2015 10:25:00 12/06/2015 10:53:00 DIS Emergency HEIDI STAHL APRN [facility] ER RIGHT POINTER LAC [id number] 02/22/2015 07:00:00 02/24/2015 15:20:00 DIS Inpatient JENNA MCGARRY DO [facility] LDRP LABOR [id number] 02/13/2015 19:04:00 02/13/2015 20:41:00 DIS Outpatient JENNA MCGARRY DO [facility] WSo C/O LEAKING FLUID [id number] 02/04/2015 15:19:00 02/04/2015 16:09:00 DIS Outpatient MENDY MTZ MD [facility] WSo CONTRACTIONS [id number] 09/04/2014 17:19:00 09/04/2014 23:59:59 CLS Outpatient KAMILLE SHEPHERD SENIOR RADIATION PROTECTION TECHNICIAN [facility] QUICK [id number] 07/29/2014 18:18:00 07/29/2014 19:40:00 DIS Emergency HEIDI STAHL APRN [facility] ER NAUSEA; 8 WKS [id number] 08/23/2013 17:45:00 08/23/2013 19:52:00 DIS Inpatient FENECH JENNA FOUNTAIN [facility] WS CONTRACTIONS [id number] 08/14/2013 10:00:00 08/15/2013 11:36:00 DIS Inpatient AMANDAECH JENNA FOUNTAIN [facility] WS LEAKING FLUID [id number] 04/10/2018 02:30:00 ACT Inpatient JENNA MCGARRY DO [facility] LDRP CONTRACTIONS [id number] 08/29/2010 23:16:00 Document Registration [id number] 02/22/2015 05:03:50 ACT Document Registration
[2018-04-10] MEDS ORDERED: D5 LR IV SOLUTION 1,000 ML IV ONE (08:00)
--- NOTE | 2018-04-10 08:22 | History & Physical-OB ---
OB - Chief Complaint & HPI Date/Time Date of Admission: Date of Admission: Apr 10, 2018 at 02:30 Time Seen by Provider: 08:15 Chief Complaint/History OB-Reason for Admission/Chief: Onset of Labor Hx : 3 Hx Para: 2 Expected Date of Delivery: Apr 30, 2018 Gestational Age in Weeks: 37 Gestational Age in Days: 1 Admission Nurse Assessment Rev: Yes History of Labs A pos Antibody neg RI RPR NR HBsAg NR HIV NR GC neg GBS neg Allergies and Home Medications Allergies Coded Allergies: nitrofurantoin (Verified Allergy, Unknown, RASH, 04/10/18) Uncoded Allergies: bandaids (Allergy, Unknown, 02/24/15) Home Medications Albuterol Sulfate 1 Puff Puff, 2 PUFF IH Q4H 1 PUFF = 90 MCG Prescribed by: ARASELI MANRIQUE on 03/20/18 1052 Nicotine 1 Each Patch.td24, 14 MG TD DAILY Prescribed by: ARASELI MANRIQUE on 03/20/18 1054 Patient Home Medication List Home Medication List Reviewed: Yes OB - History Hx of Present Care: Yes Ultrasounds: Normal mid trimester US Obstetrical Complications: Other (Hx of PTL, on Callie until 35 weeks) Medical Complications: None Obstetrical History Hx : 3 Hx Para: 2 Hx Termination: No Hx Complication: Yes (PTL, delivery at 32 wks) Hx Induced Hypertens: No Hx Maternal Gestational Diabet: No Delivery History Hx Dystocia: No Hx Large For Gestational Age I: No Hx Small for Gestational Age I: No Hx Section: No Hx Vaginal Delivery Post C-Sec: No Hx Blood Disorders: No Adverse Rxn to Tranfusion: No Patient Past Medical History Tobacco abuse Social History/Family History HIV/AIDS: No Recent Infectious Disease Expo: No Sexually Transmitted Disease: Yes (hx trich treated) Immunizations Hepatitis A: No Hepatitis B: No Tetanus Booster (TDap): More than 5yrs OB - Admission Exam Physical Exam Vitals: Vital Signs 04/10/18 01:20 Temp 97.9 Pulse 88 Resp 18 B/P (MAP) 103/70 (81) O2 Delivery Room Air HEENT: NCAT Heart: Rhythm Normal Lungs: Clear Abdomen: Gravid Extremities: Normal Reflexes: Normal Cervical Dilatation: 4cm Effacement: 75% Station: -2 Membranes: Intact Heart Rate: 130's Accelerations: Accelerations Present Decelerations: Late Decelarations (x 2 noted with monitoring overnight) Short Term Variability: Present Fdc Variability: Average (6-25) Contractions on Admission: 6-10 Minutes Apart Intensity: Moderate Labs Laboratory Tests Test 04/10/18 01:20 Range/Units Urine Color YELLOW Urine Clarity SLIGHTLY CLOUDY Urine pH 7 5-9 Urine Specific [place] 1.005 L 1.016-1.022 Urine Protein NEGATIVE NEGATIVE Urine Glucose (UA) NEGATIVE NEGATIVE Urine Ketones NEGATIVE NEGATIVE Urine Nitrite NEGATIVE NEGATIVE Urine Bilirubin NEGATIVE NEGATIVE Urine Urobilinogen NORMAL NORMAL MG/DL Urine Leukocyte Esterase NEGATIVE NEGATIVE Urine RBC (Auto) NEGATIVE NEGATIVE Urine RBC RARE /HPF Urine WBC NONE /HPF Urine Squamous Epithelial Cells 2-5 /HPF Urine Renal Epithelial Cells 0-2 /HPF Urine Crystals NONE /LPF Urine Bacteria NEGATIVE /HPF Urine Casts NONE /LPF Urine Mucus NEGATIVE /LPF Urine Culture Indicated NO OB - Assessment/Plan/Diagnosis Assessment Admission Dx 27 yo @ 37.1 weeks Active labor- advanced cervical dilatation FHR late decelerations GBS neg Tobacco us in Admission Status: Inpatient Order (span 2 midnights) Reason for Inpatient Admission: 27 yo @ 37.1 weeks Active labor- advanced cervical dilatation FHR late decelerations GBS neg Tobacco us in Plan Induction Method: JENNA SANCHEZ DO Apr 10, 2018 08:21
[2018-04-10] MEDS ORDERED: D5 LR IV SOLUTION 1,000 ML IV SCH (08:53)
[2018-04-10 09:00] LABS: BASOPHILS % (AUTO) 0 % (0-10); EOSINOPHILS # (AUTO) 0.1 10^3/uL (0.0-0.3); EOSINOPHILS % (AUTO) 1 % (0-10); HEMATOCRIT 31 % (35-52); HEMOGLOBIN 10.6 G/DL (11.5-16.0); LYMPHOCYTES % (AUTO) 27 % (12-44); MEAN CORPUSCULAR HEMOGLOBIN 29 PG (25-34); MEAN CORPUSCULAR HGB CONC 34 G/DL (32-36); MEAN CORPUSCULAR VOLUME 87 FL (80-99); MONOCYTES # (AUTO) 0.8 X 10^3 (0.0-1.0); MONOCYTES % (AUTO) 7 % (0-12); NEUTROPHILS # (AUTO) 7.3 X 10^3 (1.8-7.8); NEUTROPHILS % (AUTO) 65 % (42-75); PLATELET COUNT 362 10^3/uL (130-400); RED BLOOD COUNT 3.62 10^6/uL (4.35-5.85); RED CELL DISTRIBUTION WIDTH 14.5 % (10.0-14.5); WHITE BLOOD COUNT 11.1 10^3/uL (4.3-11.0)
[2018-04-10] MEDS ORDERED: MINERAL OIL CONCENTRATE 99.9% 15 ML UDC TOP PRN (09:00)
[2018-04-10] MEDS ORDERED: OXYTOCIN/NORMAL SALINE 500 ML IV SCH (09:43)
[2018-04-10] MEDS ORDERED: SUFENTA 0.6MCG/ML BUPIVA 0.125 100 ML ONE (12:03)
[2018-04-10] MEDS ORDERED: fentaNYL INJECTION 100 MCG/2 ML AMP ONE (12:30)
[2018-04-10] MEDS ORDERED: BUPIVACAINE 0.25% 30 ML (SENSORCAINE) VIAL ONE (12:31)
[2018-04-10] MEDS ORDERED: LACTATED RINGERS 1,000 ML IV ONE (13:02)
[2018-04-10] MEDS ORDERED: CATHETER FLUSH 10 ML SYR IV PRN (13:15)
[2018-04-10] MEDS ORDERED: NALOXONE 0.4 MG/ML 1 ML (NARCAN) VIAL IV PRN (13:15)
[2018-04-10] MEDS ORDERED: EPIDURAL (SUFENTA 0.6MCG/ML BUPIVA 0.125%) 100 ML BAG EPI SCH (13:15)
[2018-04-10] MEDS ORDERED: LIDOCAINE/EPI 2% 1:200,00 (XYLOCAINE) 10 ML VIAL ONE (13:22)
[2018-04-10] MEDS ORDERED: CATHETER FLUSH 10 ML SYR IV SCH ×2 (14:00→22:00)
[2018-04-10] MEDS: OXYTOCIN/NORMAL SALINE 500 ML IV SCH ×2 (14:23→14:54)
[2018-04-10] MEDS ORDERED: WITCH HAZEL(TUCKS) 40 EA JAR TOP PRN (14:30)
[2018-04-10] MEDS ORDERED: DIBUCAINE (NUPERCAINAL) 1% OINT 30 GM TOP PRN (14:30)
[2018-04-10] MEDS ORDERED: MEASLES,MUMPS,RUBELLA 1 EA INJ SQ ONE (14:30)
[2018-04-10] MEDS ORDERED: TETANUS,DIPTH,PERTUSS P/F (BOOSTRIX) 0.5 ML VIAL IM ONE (14:30)
--- NOTE | 2018-04-10 14:36 | OB Labor & Delivery Record ---
L&D History Date of Service Date of Service: Apr 10, 2018 History Expected Date of Delivery: Apr 30, 2018 Gestational Age in Weeks: 37 Hx : 3 Hx Para: 2 Complications Events: Routine care Operative Indications (Cesarea: N/A-Vaginal Delivery Intrapartal Events: None L&D Stage1 Stage One Onset of Labor - Date: Apr 10, 2018 Monitors and Tracing Monitor Mode: External Heart Rate: 135 Monitor Decelerations: None Station: -2 Vital Signs VS - Last 72 Hours, by Label 04/10/18 04/10/18 04/10/18 04/10/18 01:20 08:35 10:15 10:35 Temp 97.9 98.3 98.1 Pulse 88 91 84 79 Resp 18 18 18 18 B/P (MAP) 103/70 (81) 108/67 (81) 103/64 (77) 102/64 (77) O2 Delivery Room Air Room Air Room Air Room Air 04/10/18 04/10/18 04/10/18 04/10/18 10:45 11:00 11:15 11:30 Temp 98.3 Pulse 81 77 73 83 Resp 18 18 18 18 B/P (MAP) 103/65 (78) 104/69 (81) 104/72 (83) 107/67 (80) O2 Delivery Room Air Room Air Room Air Room Air 04/10/18 04/10/18 11:45 12:00 Pulse 86 73 Resp 18 18 B/P (MAP) 113/72 (86) 115/76 (89) O2 Delivery Room Air Room Air Rupture of Membranes Spontaneous Ruture of Membrane: No Amniotic Membrane Rupture Time: 08 Amniotic Membrane Fluid Desc.: Clear Vaginal Bleeding Description: Normal Show Induction/Anesthesia Epidural Cath Placement - Time: 1250 Progress/Notes Pitocin augmentation per protocol used after 2 hrs from AROM and dysfunctional contraction pattern. Patient progressed after obtaining epidural to complete and 0 station L&D Stage2 Stage Two Stage II Date: Apr 10, 2018 Monitors and Tracing Monitor Mode: External Heart Rate: 135 Monitor Decelerations: None Short Term Variability: Present Position: Right Occiput Anterior Presentation: Vertex Cord Descript/Complications Cord Vessel Description: 3 Vessels Delivery Type Delivery Method: Spontaneous Vaginal Anterior Shoulder: Right Episiotomy/Perineal Laceration Laceraction(s)/Extensions: Yes Degree (describe repair) left labial laceration repaired using 3-0 rapide vicryl suture in usual fashion Condition of Infant Delivery 1 minute Comment: 5 5 minute Comment: 8 Notes live female infant weight 6lbs 2 oz Condition of Condition of Infant: Living Exam: No Observed Abnormalities Resuscitation Resuscitation: N/A - Spontaneous Resp L&D Stage3 Stage Three Stage III Date: Apr 10, 2018 Pictocin Pitocin Administration Comment: 30 mu wide open after delivery of placenta Placenta Delivery Placenta Delivery: Spontaneous Delivery Summary Summary Estimated blood loss (mL): 250 Attending at delivery: Jenna Mcgarry DO Condition of Delivery Examined: Cervix Examined, Uterus Explored Post Hemorrhage: No Condition of Mother stable Condition of Infant (s) stable JENNA MCGARRY DO Apr 10, 2018 2:36 pm
--- NOTE | 2018-04-10 14:37 | Discharge Inst-Women's Service ---
Discharge Inst-Women's Serv Depart Medication/Instructions New, Converted or Re-Newed RX: RX on Chart Consults/Follow Up Additional Follow Up: Yes Orders/Referrals Dr. Mcgarry in 6 weeks Activity Activity: Activity as Tolerated Driving Instructions: No Driving for 1 Week NO SMOKING: NO SMOKING Nothing Inside Vagina: No Douching, No Pound, No Tampons Diet Discharge Diet: No Restrictions Symptoms to Report to : Bleeding Excessive, Pain Increased, Fever Over 101 Degrees F, Vaginal Bleeding Increase, Questions/Concerns For Any Problems or Questions: Contact Your Physician Skin/Wound Care Bathing Instructions: Shower (or sitz baths x 2 weeks) JENNA MCGARRY DO Apr 10, 2018 2:37 pm
[2018-04-10] MEDS ORDERED: DOCU100C37 PO (14:38)
[2018-04-10] MEDS ORDERED: IBUP-844 PO (14:38)
[2018-04-10] MEDS ORDERED: ACHD5005 PO (14:38)
[2018-04-10] MEDS ORDERED: FERR325T18 PO (14:38)
[2018-04-10] MEDS: IBUPROFEN 600 MG (MOTRIN) TAB PO SCH ×2 (17:17→22:52)
[2018-04-10] MEDS: BENZOCAINE/MENTHOL (DERMOPLAST) 56 ML CAN TP PRN (17:17)
[2018-04-10] MEDS: HYDROcodone/APAP 5 MG/325 MG (LORTAB) TAB PO PRN (18:46)
[2018-04-10] MEDS ORDERED: DOCUSATE SODIUM 100 MG (COLACE) CAP PO SCH (21:00)
[2018-04-11 00:15] VITALS: BP 94/57
[2018-04-11] MEDS: HYDROcodone/APAP 5 MG/325 MG (LORTAB) TAB PO PRN ×4 (00:19→16:32)
[2018-04-11 04:00] VITALS: BP 108/69
[2018-04-11] MEDS: IBUPROFEN 600 MG (MOTRIN) TAB PO SCH ×2 (04:45→12:08)
[2018-04-11 06:15] LABS: BASOPHILS % (AUTO) 0 % (0-10); EOSINOPHILS # (AUTO) 0.2 10^3/uL (0.0-0.3); EOSINOPHILS % (AUTO) 1 % (0-10); HEMATOCRIT 27 % (35-52); HEMOGLOBIN 9.3 G/DL (11.5-16.0); LYMPHOCYTES % (AUTO) 22 % (12-44); MEAN CORPUSCULAR HEMOGLOBIN 30 PG (25-34); MEAN CORPUSCULAR HGB CONC 34 G/DL (32-36); MEAN CORPUSCULAR VOLUME 88 FL (80-99); MEAN PLATELET VOLUME 9.7 FL (7.4-10.4); MONOCYTES # (AUTO) 0.7 X 10^3 (0.0-1.0); MONOCYTES % (AUTO) 5 % (0-12); NEUTROPHILS # (AUTO) 9.7 X 10^3 (1.8-7.8); NEUTROPHILS % (AUTO) 72 % (42-75); PLATELET COUNT 302 10^3/uL (130-400); RED BLOOD COUNT 3.11 10^6/uL (4.35-5.85); RED CELL DISTRIBUTION WIDTH 13.9 % (10.0-14.5); WHITE BLOOD COUNT 13.6 10^3/uL (4.3-11.0)
[2018-04-11] MEDS ORDERED: PRENATAL VITAMIN 1 EA TAB PO SCH (07:00)
[2018-04-11] MEDS ORDERED: FERROUS SULF 325 MG (IRON) TAB PO SCH (09:00)
[2018-04-11] MEDS ORDERED: NICOTINE 14 MG (NICODERM) PATCH TD SCH (09:00)
--- NOTE | 2018-04-11 09:45 | Postpartum Progress Note ---
Note Note Day # 1 Subjective: Patient is without complaints. Ambulating, voiding. Tolerating a regular diet without nausea or vomiting. Normal lochia. Pain is well controlled with oral pain medications. Objective: Vital Sign - Last 24 Hours 04/10/18 04/10/18 04/10/18 04/10/18 10:15 10:35 10:45 11:00 Temp 98.1 Pulse 84 79 81 77 Resp 18 18 18 18 B/P (MAP) 103/64 (77) 102/64 (77) 103/65 (78) 104/69 (81) O2 Delivery Room Air Room Air Room Air Room Air 04/10/18 04/10/18 04/10/18 04/10/18 11:15 11:30 11:45 12:00 Temp 98.3 Pulse 73 83 86 73 Resp 18 18 18 18 B/P (MAP) 104/72 (83) 107/67 (80) 113/72 (86) 115/76 (89) O2 Delivery Room Air Room Air Room Air Room Air 04/10/18 04/10/18 04/10/18 04/10/18 12:15 12:30 12:47 12:53 Pulse 84 90 92 81 Resp 18 18 B/P (MAP) 114/80 (91) 121/60 (80) 116/86 (96) 115/77 (90) Pulse Ox 99 98 99 O2 Delivery Room Air Room Air Room Air Room Air 04/10/18 04/10/18 04/10/18 04/10/18 12:56 13:00 13:05 13:08 Temp 98.0 Pulse 81 82 78 84 Resp 18 18 B/P (MAP) 113/76 (88) 112/69 (83) 115/76 (89) 115/76 (89) Pulse Ox 99 99 99 98 O2 Delivery Room Air Room Air Room Air Room Air 04/10/18 04/10/18 04/10/18 04/10/18 13:11 13:14 13:17 13:20 Pulse 85 76 88 80 Resp 18 18 18 18 B/P (MAP) 114/77 (89) 112/76 (88) 109/75 (86) 110/75 (87) Pulse Ox 98 98 97 97 O2 Delivery Room Air Room Air Room Air Room Air 04/10/18 04/10/18 04/10/18/15/18 13:23 13:26 13:29 13:32 Pulse 82 80 108 76 Resp 18 18 18 18 B/P (MAP) 103/67 (79) 100/66 (77) 101/67 (78) 115/57 (76) Pulse Ox 96 97 97 99 O2 Delivery Room Air Room Air Room Air Room Air 04/10/18 04/10/18 04/10/18 04/10/18 13:35 13:38 13:43 13:50 Pulse 83 78 106 88 Resp 18 18 18 18 B/P (MAP) 105/63 (77) 113/67 (82) 116/72 (87) 107/63 (78) Pulse Ox 96 96 97 97 O2 Delivery Room Air Room Air Room Air Room Air 04/10/18 04/10/18 04/10/18 04/10/18 13:55 14:00 14:05 14:08 Pulse 78 90 85 79 Resp 18 18 18 18 B/P (MAP) 111/66 (81) 109/65 (80) 108/67 (81) 109/69 (82) Pulse Ox 96 97 94 96 O2 Delivery Room Air Room Air Room Air Room Air 04/10/18 04/10/18 04/10/18 04/10/18 14:28 14:55 14:58 15:13 Pulse 94 78 71 75 Resp 18 18 18 18 B/P (MAP) 111/59 (76) 109/64 (79) 105/64 (78) 101/62 (75) O2 Delivery Room Air Room Air Room Air Room Air 04/10/18 04/10/18 04/10/18 04/10/18 15:28 15:43 15:58 16:13 Temp 98.9 Pulse 67 72 78 81 Resp 18 18 18 B/P (MAP) 110/71 (84) 112/73 (86) 118/78 (91) 111/73 (86) O2 Delivery Room Air Room Air Room Air Room Air 04/10/18 04/11/18 04/11/18 20:00 00:15 04:00 Temp 96.4 97.2 98.1 Pulse 69 83 73 Resp 16 16 16 B/P (MAP) 103/71 (82) 94/57 (69) 108/69 (82) Pulse Ox 99 98 98 O2 Delivery Room Air Room Air Room Air Intake and Output 9/15/18 9/15/18 9/16/18 15:00 23:00 07:00 Intake Total 2200 ml 500 ml Balance 2200 ml 500 ml Physical Exam: General - Alert and oriented, no apparent distress Abdomen - Soft, appropriately tender to palpation, non-distended, fundus firm at umbilicus Extremities - no edema, negative Megan's bilaterally Assessment: PPD 1 NVD Acute blood loss anemia superimposed on anemia of Tobacco use in Plan: Routine care. Encourage breast feeding. Encourage ambulation. Ferrous sulfate supplementation. Plan for discharge today Vitals - Labs Vital Signs - I&O Vital Signs Date Time Temp Pulse Resp B/P (MAP) Pulse Ox O2 Delivery O2 Flow Rate FiO2 04/11/18 04:00 98.1 73 16 108/69 (82) 98 Room Air 04/11/18 00:15 97.2 83 16 94/57 (69) 98 Room Air 04/10/18 20:00 96.4 69 16 103/71 (82) 99 Room Air 04/10/18 16:13 81 18 111/73 (86) Room Air 04/10/18 15:58 78 18 118/78 (91) Room Air 04/10/18 15:43 72 112/73 (86) Room Air 04/10/18 15:28 98.9 67 18 110/71 (84) Room Air 04/10/18 15:13 75 18 101/62 (75) Room Air 04/10/18 14:58 71 18 105/64 (78) Room Air 04/10/18 14:55 78 18 109/64 (79) Room Air 04/10/18 14:28 94 18 111/59 (76) Room Air 04/10/18 14:08 79 18 109/69 (82) 96 Room Air 04/10/18 14:05 85 18 108/67 (81) 94 Room Air 04/10/18 14:00 90 18 109/65 (80) 97 Room Air 04/10/18 13:55 78 18 111/66 (81) 96 Room Air 04/10/18 13:50 88 18 107/63 (78) 97 Room Air 04/10/18 13:43 106 18 116/72 (87) 97 Room Air 04/10/18 13:38 78 18 113/67 (82) 96 Room Air 04/10/18 13:35 83 18 105/63 (77) 96 Room Air 04/10/18 13:32 76 18 115/57 (76) 99 Room Air 04/10/18 13:29 108 18 101/67 (78) 97 Room Air 04/10/18 13:26 80 18 100/66 (77) 97 Room Air 04/10/18 13:23 82 18 103/67 (79) 96 Room Air 04/10/18 13:20 80 18 110/75 (87) 97 Room Air 04/10/18 13:17 88 18 109/75 (86) 97 Room Air 04/10/18 13:14 76 18 112/76 (88) 98 Room Air 04/10/18 13:11 85 18 114/77 (89) 98 Room Air 04/10/18 13:08 84 18 115/76 (89) 98 Room Air 04/10/18 13:05 78 18 115/76 (89) 99 Room Air 04/10/18 13:00 98.0 82 18 112/69 (83) 99 Room Air 04/10/18 12:56 81 18 113/76 (88) 99 Room Air 04/10/18 12:53 81 18 115/77 (90) 99 Room Air 04/10/18 12:47 92 18 116/86 (96) 98 Room Air 04/10/18 12:30 90 18 121/60 (80) 99 Room Air 04/10/18 12:15 84 18 114/80 (91) Room Air 04/10/18 12:00 73 18 115/76 (89) Room Air 04/10/18 11:45 86 18 113/72 (86) Room Air 04/10/18 11:30 98.3 83 18 107/67 (80) Room Air 04/10/18 11:15 73 18 104/72 (83) Room Air 04/10/18 11:00 77 18 104/69 (81) Room Air 04/10/18 10:45 81 18 103/65 (78) Room Air 04/10/18 10:35 98.1 79 18 102/64 (77) Room Air 04/10/18 10:15 84 18 103/64 (77) Room Air I & O 04/11/18 07:00 Intake Total 2700 ml Balance 2700 ml Labs Laboratory Tests 04/11/18 06:10: White Blood Count 13.6H, Red Blood Count 3.11L, Hemoglobin 9.3L, Hematocrit 27L , Mean Corpuscular Volume 88, Mean Corpuscular Hemoglobin 30, Mean Corpuscular Hemoglobin Concent 34, Red Cell Distribution Width 13.9, Platelet Count 302, Mean Platelet Volume 9.7, Neutrophils (%) (Auto) 72, Lymphocytes (%) (Auto) 22, Monocytes (%) (Auto) 5, Eosinophils (%) (Auto) 1, Basophils (%) (Auto) 0, Neutrophils # (Auto) 9.7H, Lymphocytes # (Auto) 3.0, Monocytes # (Auto) 0.7, Eosinophils # (Auto) 0.2, Basophils # (Auto) 0.0 JENNA MCGARRY DO Apr 11, 2018 9:45 am
[2018-04-11 10:34] VITALS: BP 108/76
--- NOTE | 2018-04-11 11:44 | Anesthesia-Regional Post-Op ---
Regional Significant Intra-Op Events Notes Pt was not in room went rounds were performed. Nurse advised she was outside smoking. RN reported pt c/o back pain but she had pain prior to epidural. No other concerns noted by RN Patient Condition Mental Status: Alert, Oriented x3 Circulation: Same as Pre-Op Headache: Absent Sensation: Full Recovery Motor Block: Absent Post Op Complications Complications None Follow Up Care/Instructions Patient Instructions None needed. Anesthesia/Patient Condition Patient is doing well, no complaints, stable vital signs, no apparent adverse anesthesia problems. No complications reported per nursing. D/C home per [place] Criteria: Yes WANDY BONILLA CART ATTENDANT Apr 11, 2018 11:44
[2018-04-11] MEDS ORDERED: TETANUS,DIPTH,PERTUSS P/F (BOOSTRIX) 0.5 ML VIAL IM ONE (16:24)
[2018-04-11] MEDS: BENZOCAINE/MENTHOL (DERMOPLAST) 56 ML CAN TP PRN (17:00)
--- NOTE | 2018-04-16 10:12 | Physician Query-Final Dx ---
KAMILLE FREY 04/16/18 1012: Final Diagnosis Give Final Diagnosis Please give Final Diagnosis JENNA MCGARRY DO 04/16/18 1820: Final Diagnosis Give Final Diagnosis PPD 2 NVD KAMILLE FREY Apr 16, 2018 10:12 JENNA MCGARRY DO Apr 16, 2018 18:20
== END 2018-04-11 17:20 | disposition home or self-care (01) | DRG 774 ==
LOC: WSo 01:12 → LDRP 01:13 → WSo 02:29 → LDRP 02:30 → UNDOADMOB 02:30 → OBSVTOIN 08:15 → LDRP 08:15 → UNDODISIN 04-11 17:20
PROVIDERS: ADMIT Obstetrics & Gynecology; ATTEND Obstetrics & Gynecology
PROC: 0HQ9XZZ Repair Perineum Skin, External Approach (ICD-10-PCS; principal; 2018-04-10)
PROC: 10E0XZZ Delivery of Products of Conception, External Approach (ICD-10-PCS; 2018-04-10)
DX: O70.0 First degree perineal laceration during delivery (principal); D62 Acute posthemorrhagic anemia; O98.32 Other infections with a predominantly sexual mode of transmission complicating childbirth; O99.03 Anemia complicating the puerperium; O76 Abnormality in fetal heart rate and rhythm complicating labor and delivery; D64.9 Anemia, unspecified; O90.81 Anemia of the puerperium; O99.334 Smoking (tobacco) complicating childbirth; F17.210 Nicotine dependence, cigarettes, uncomplicated; Z3A.37 37 weeks gestation of pregnancy; Z37.0 Single live birth; Z23 Encounter for immunization
CPT/HCPCS: 36415; 81000; 85025; 86850; 86900; 86901; 90715; 99212

== ENCOUNTER 2018-05-28 05:34 | Outpatient (CLI) | payer MEDICAID ==
[~2018-05-28] VITALS: Ht 162.6 cm; Wt 49.4 kg
[~2018-05-28 05:34] MED LIST changes: +ACHD5005 PO; +DOCU100C37 PO; +FERR325T18 PO; +IBUP-844 PO
[2018-06-03] MEDS ORDERED: IBUP-1773 PO (10:30)
[2018-06-03] MEDS ORDERED: ACHD5005 PO (10:30)
== END 2018-05-28 09:54 | disposition home or self-care (01) ==
LOC: PREOP 05:34
PROVIDERS: ATTEND Obstetrics & Gynecology
DX: Z01.818 Encounter for other preprocedural examination (principal)

== ENCOUNTER 2018-06-03 09:07 | Day surgery (SDC) | payer MEDICAID ==
[~2018-06-03] VITALS: Ht 162.6 cm; Wt 49.4 kg
--- OUTSIDE RECORDS SUMMARY | 2018-06-03 09:15 | XMS REPORT | Continuity of Care Document ---
Author Author [facility] Address Unknown Phone Unavailable Allergies Active Description Code Type Severity Reaction Onset Reported/Identified Relationship to Patient Clinical Status Yes traZODONE Drug Allergy 05/03/2011 Yes traZODONE Drug Allergy N/A N/A 05/03/2011 Yes Nitrofurantoin Drug Allergy N /A N/A 03/15/2013 Yes bandaids bandaids Unknown N/A 02/24/2015 Yes nitrofurantoin [id number] Drug Allergy Unknown RASH 04/10/2018 Medications There [...] 133.0 SCABIES 06/28/2011 133.0 SCABIES 06/28/2011 ZAC VBA DEVELOPER, NEHA A 133.0 SCABIES 06/28/2011 ENEDELIA SAMS [...] 724.2 BACK PAIN, LOWER 07/29/2014 HEIDI STAHL VBA DEVELOPER Ot 599.0 URIN TRACT INFECTION NOS 07/29/2014 HEIDI STAHL VBA DEVELOPER Ot 646.63 INFECTION-ANTEPARTUM 07/29/2014 HEIDI STAHL APRN [...] Ot V27.0 DELIVER-SINGLE LIVEBORN 12/06/2015 HEIDI STAHL VBA DEVELOPER Ot S61.210A LACERATION W/O FB OF R IDX FNGR W/O GHULAM 12/06/2015 HEIDI STAHL VBA DEVELOPER Ot W26.0XXA CONTACT WITH KNIFE, INITIAL ENCOUNTER 12/06/2015 HEIDI STAHL VBA DEVELOPER Ot Y92.010 KITCHEN OF SINGLE-FAMILY (PRIVATE) HOUSE 12/06/2015 HEIDI STAHL VBA DEVELOPER Ot Y93.G1 ACTIVITY, FOOD PREPARATION AND CLEAN UP 12/06/2015 HEIDI STAHL VBA DEVELOPER Ot Y99.8 OTHER EXTERNAL CAUSE STATUS 12/07/2015 HEIDI STAHL APRN Ot S61.210A LACERATION W/O FB OF R IDX FNGR W/O GHULAM 12/07/2015 HEIDI STAHL APRN Ot W26.0XXA CONTACT WITH KNIFE, INITIAL ENCOUNTER 12/07/2015 HEIDI STAHL APRN Ot Y92.010 KITCHEN OF SINGLE-FAMILY (PRIVATE) HOUSE 12/07/2015 HEIDI STAHL VBA DEVELOPER Ot Y93.G1 ACTIVITY, FOOD PREPARATION AND CLEAN UP 12/07/2015 HEIDI STAHL VBA DEVELOPER Ot Y99.8 OTHER EXTERNAL CAUSE STATUS 03/07/2016 FENECH DO, JENNA S Ot R10.2 PELVIC AND PERINEAL PAIN 03/10/2016 AMANDAECH DOJENNA S Ot R10.2 PELVIC AND PERINEAL PAIN 03/13/2016 ZEFERINO FOUNTAIN JENNA S Ot R10.2 PELVIC AND PERINEAL PAIN 03/13/2016 HEIDI STAHL VBA DEVELOPER Ot M54.2 CERVICALGIA 03/13/2016 HEIDI STAHL VBA DEVELOPER Ot M54.5 LOW BACK PAIN 03/13/2016 HEIDI STAHL VBA DEVELOPER Ot M79.621 PAIN IN RIGHT UPPER ARM 03/13/2016 HEIDI STAHL VBA DEVELOPER Ot N39.0 URINARY TRACT INFECTION, SITE NOT SPECIF 04/11/2016 ZEFERINO FOUNTAIN JENNA S Ot R10.2 PELVIC AND PERINEAL PAIN 04/22/2016 HEIDI STAHL VBA DEVELOPER Ot M54.2 CERVICALGIA 04/22/2016 HEIDI STAHL VBA DEVELOPER Ot M54.5 LOW BACK PAIN 04/22/2016 HEIDI STAHL VBA DEVELOPER Ot M79.621 PAIN IN RIGHT UPPER ARM 04/22/2016 HEIDI STAHL VBA DEVELOPER Ot N39.0 URINARY TRACT INFECTION, SITE NOT SPECIF 04/23/2016 ZEFERINO FOUNTAIN JENNA S Ot R10.2 PELVIC AND PERINEAL PAIN 08/25/2017 HEIDI STAHL VBA DEVELOPER Ot F31.9 BIPOLAR DISORDER, UNSPECIFIED 08/25/2017 HEIDI STAHL VBA DEVELOPER Ot F41.9 ANXIETY DISORDER, UNSPECIFIED 08/25/2017 HEIDI STAHL VBA DEVELOPER Ot J45.909 UNSPECIFIED ASTHMA, UNCOMPLICATED 08/25/2017 HEIDI STAHL VBA DEVELOPER Ot K02.9 DENTAL CARIES, UNSPECIFIED 08/25/2017 HEIDI STAHL VBA DEVELOPER Ot K08.89 OTHER SPECIFIED DISORDERS OF TEETH AND S 08/25/2017 HEIDI STAHL VBA DEVELOPER Ot Z82.49 FAMILY HX OF ISCHEM HEART DIS AND OTH DI 08/25/2017 HEIDI STAHL VBA DEVELOPER Ot Z88.1 ALLERGY STATUS TO OTHER ANTIBIOTIC [...] LABOR WITHOUT DELIVERY, THIRD TR 03/29/2018 ZEFERINO FOUNTAINJENNA Ot O99.333 SMOKING (TOBACCO) COMPLICATING 03/29/2018 JENNA MCGARRY DO Ot Z3A.35 35 WEEKS GESTATION OF 04/04/2018 MENDY MTZ MD, Ot O99.89 OTH DISEASES AND CONDITIONS COMPL PREG/C 04/04/2018 MENDY MTZ MD, Ot Z3A.35 35 WEEKS GESTATION OF 04/07/2018 ARASELI MANRIQUE DO Ot O60.03 LABOR WITHOUT DELIVERY, THIRD TR 04/07/2018 HILARIA FOUNTAINARASELI Ot Z3A.36 36 WEEKS GESTATION OF 04/07/2018 MENDY MTZ MD, Ot O99.89 OTH DISEASES AND CONDITIONS COMPL PREG/C 04/07/2018 MENDY MTZ MD, Ot Z3A.35 35 WEEKS GESTATION OF 04/11/2018 JENNA MCGARRY DO Ot D62 ACUTE POSTHEMORRHAGIC ANEMIA 04/11/2018 JENNA MCGARRY DO Ot D64.9 ANEMIA, UNSPECIFIED 04/11/2018 JENNA MCGARRY DO Ot F17.210 NICOTINE DEPENDENCE, CIGARETTES, UNCOMPL 04/11/2018 JENNA MCGARRY DO Ot O70.0 FIRST DEGREE PERINEAL LACERATION DURING 04/11/2018 JENNA MCGARRY DO Ot O76 ABNLT IN HEART RATE AND RHYTHM COM 04/11/2018 JENNA MCGARRY DO Ot O90.81 ANEMIA OF THE PUERPERIUM 04/11/2018 JENNA MCGARRY DO Ot O98.32 OTH INFECTIONS W SEXL MODE OF TRANSMISS 04/11/2018 JENNA MCGARRY DO Ot O99.03 ANEMIA COMPLICATING THE PUERPERIUM 04/11/2018 JENNA MCGARRY DO Ot O99.334 SMOKING (TOBACCO) COMPLICATING CHILDBIRT 04/11/2018 JENNA MCGARRY DO Ot Z23 ENCOUNTER FOR IMMUNIZATION 04/11/2018 JENNA MCGARRY DO Ot Z37.0 SINGLE LIVE 04/11/2018 JENNA MCGARRY DO Ot Z3A.37 37 WEEKS GESTATION OF 04/22/2018 JENNA MCGARRY DO Ot D62 ACUTE POSTHEMORRHAGIC ANEMIA 04/22/2018 FENECH DOJENNA Ot D64.9 ANEMIA, UNSPECIFIED 04/22/2018 ZEFERINO FOUNTAIN JENNA Delisa Ot F17.210 NICOTINE DEPENDENCE, CIGARETTES, UNCOMPL 04/22/2018 ZEFERINO FOUNTAIN JENNA Delisa Ot O70.0 FIRST DEGREE PERINEAL LACERATION DURING 04/22/2018 ZEFERINO FOUNTAINJENNA Ot O76 ABNLT IN HEART RATE AND RHYTHM COM 04/22/2018 ZEFERINO FOUNTAINJENNA Ot O90.81 ANEMIA OF THE PUERPERIUM 04/22/2018 ZEFERINO FOUNTAINJENNA Ot O98.32 OTH INFECTIONS W SEXL MODE OF TRANSMISS 04/22/2018 ZEFERINO FOUNTAINJENNA Ot O99.03 ANEMIA COMPLICATING THE PUERPERIUM 04/22/2018 ZEFERINO FOUNTAINJENNA Ot O99.334 SMOKING (TOBACCO) COMPLICATING CHILDBIRT 04/22/2018 ZEFERINO FOUNTAINJENNA Ot Z23 ENCOUNTER FOR IMMUNIZATION 04/22/2018 ZEFERINO JENNA FOUNTAIN Ot Z37.0 SINGLE LIVE 04/22/2018 AMANDAJENNA MARQUES DO Ot Z3A.37 37 WEEKS GESTATION OF 04/30/2018 ARASELI MANRIQUE DO Ot O60.03 LABOR WITHOUT DELIVERY, THIRD TR 04/30/2018 ARASELI MANRIQUE DO Ot Z3A.36 36 WEEKS GESTATION OF 05/24/2018 JENNA MCGARRY DO Ot Z36.89 ENCOUNTER FOR OTHER SPECIFIED 05/24/2018 AMANDAJENNA MARQUES DO Ot Z3A.18 18 WEEKS GESTATION OF 05/24/2018 JENNA MCGARRY DO Ot Z36.89 ENCOUNTER FOR OTHER SPECIFIED 05/24/2018 FENECH DOJENNA Ot Z3A.18 18 WEEKS GESTATION OF 05/24/2018 JENNA MCGARRY DO Ot Z36.89 ENCOUNTER FOR OTHER SPECIFIED 05/24/2018 FENECH DOJENNA S Ot Z3A.18 18 WEEKS GESTATION OF 05/25/2018 JENNA MCGARRY DO S Ot Z36.89 ENCOUNTER FOR OTHER SPECIFIED 05/25/2018 FENECH DOJENNA S Ot Z3A.18 18 WEEKS GESTATION OF 05/26/2018 JENNA MCGARRY DO S Ot Z36.89 ENCOUNTER FOR OTHER SPECIFIED 05/26/2018 FENECH DOJENNA S Ot Z3A.18 18 WEEKS GESTATION OF 05/28/2018 JENNA MCGARRY DO Ot Z01.818 ENCOUNTER FOR OTHER PREPROCEDURAL EXAMIN 06/02/2018 JENNA MCGARRY DO Ot Z01.818 ENCOUNTER FOR OTHER PREPROCEDURAL EXAMIN Procedures Code Description [place] [address] UA W/ CULTURE IF INDICATED 08/05/2012 91339 CULTURE URINE 08/05/2012 40039 SYPHILIS TEST 08/11/2012 77537 HIV ANTIBODIES (RML) 08/11/2012 36700 CULTURE UROGENITAL 08/11/2012 14557 GC/CHLAM PROBE (STATE) 08/11/2012 66273 TRICHOMONAS (IN-HOUSE) 08/11/2012 19228 ROUTINE VENIPUNCTURE 03/07/2013 10451 URINE DRUG SCREEN (IN-HOUSE ) 03/07/2013 74461 CBC 03/07/2013 54607 TSH 03/07/2013 34537 HIV ANTIBODIES (RML) 03/07/2013 90692 BLOOD TYPE/Rh FACTOR 03/08/2013 1544437 ANTIBODY SCREEN (RESULT ONLY) 03/08/2013 71339 RUBELLA ANTIBODY, IGG 03/08/2013 33462 CULTURE URINE 03/09/2013 02476 SYPHILLIS-STATE LAB 03/09/2013 82988 ANTIBODY SCREEN (order) 03/09/2013 88715 HEP B SURFACE ANTIGEN (STATE ) 03/09/2013 61244 UA LONG DIP 03/15/2013 85045 UA W/ CULTURE IF INDICATED 05/30/2013 10332 CULTURE URINE 05/31/2013 63541 TEST, URINE (IN- HOUSE) 07/17/2014 75.69 02/22/2015 [id number] REPAIR PERINEUM SKIN, EXTERNAL APPROACH 04/10/2018 79U1THP DELIVERY OF PRODUCTS OF CONCEPTION, EXTE 04/10/2018 Results Test Result Range Complete urinalysis with [...] culture - 03/13/16 15:42 Bacterial urine culture [id number] NRG COLONY COUNT >100,000/ML NRG FTX;REPORTABLE SENSITIVITY [...] 08:41 Hemoglobin A1c 5.4 % 4.8-5.6 Thyroid [place] Profile - 04/25/16 08:41 TSH 2.340 uIU/mL [...] culture - 03/19/18 13:45 Bacterial urine culture [id number] NRG COLONY COUNT . NRG FTX;REPORTABLE 40,000 [...] ABO+Rh group AP NRG Transfusion band number [id number] NRG Blood group antibody screen NEGATIVE NRG [...] urine sediment by light microscopy 0-2 NRG Complete blood count (CBC) with automated white blood cell (WBC) differential - 04/10/18 08:12 Blood leukocytes automated count (number/volume) 11.1 10*3/uL 4.3-11.0 Blood erythrocytes automated count (number/volume) 3.62 10*6/uL 4.35-5.85 Venous blood hemoglobin measurement (mass/volume) 10.6 g/dL 11.5-16.0 Blood hematocrit (volume fraction) 31 % 35-52 Automated erythrocyte mean corpuscular volume 87 [foz_us] 80-99 Automated erythrocyte mean corpuscular hemoglobin (mass per erythrocyte) 29 pg 25-34 Automated erythrocyte mean corpuscular hemoglobin concentration measurement ( mass/volume) 34 g/dL 32-36 Automated erythrocyte distribution width ratio 14.5 % 10.0-14.5 Automated blood platelet count (count/volume) 362 10*3/uL 130-400 Automated blood platelet mean volume measurement 10.0 [foz_us] 7.4-10.4 Automated blood neutrophils/100 leukocytes 65 % 42-75 Automated blood lymphocytes/100 leukocytes 27 % 12-44 Blood monocytes/100 leukocytes 7 % 0-12 Automated blood eosinophils/100 leukocytes 1 % 0-10 Automated blood basophils/100 leukocytes 0 % 0-10 Blood neutrophils automated count (number/volume) 7.3 10*3 1.8-7.8 Blood lymphocytes automated count (number/volume) 3.0 10*3 1.0-4.0 Blood monocytes automated count (number/volume) 0.8 10*3 0.0-1.0 Automated eosinophil count 0.1 10*3/uL 0.0-0.3 Automated blood basophil count (count/volume) 0.0 10*3/uL 0.0-0.1 Blood type T Indirect antibody screen panel - 04/10/18 08:12 ABO+Rh group AP NR Transfusion band number [id number] [facility] Blood group antibody screen NEGATIVE [facility] Complete blood count (CBC) with automated white blood cell (WBC) differential - 04/11/18 06:10 Blood leukocytes automated count (number/volume) 13.6 10*3/uL 4.3-11.0 Blood erythrocytes automated count (number/volume) 3.11 10*6/uL 4.35-5.85 Venous blood hemoglobin measurement (mass/volume) 9.3 g/dL 11.5-16.0 Blood hematocrit (volume fraction) 27 % 35-52 Automated erythrocyte mean corpuscular volume 88 [foz_us] 80-99 Automated erythrocyte mean corpuscular hemoglobin (mass per erythrocyte) 30 pg 25-34 Automated erythrocyte mean corpuscular hemoglobin concentration measurement ( mass/volume) 34 g/dL 32-36 Automated erythrocyte distribution width ratio 13.9 % 10.0-14.5 Automated blood platelet count (count/volume) 302 10*3/uL 130-400 Automated blood platelet mean volume measurement 9.7 [foz_us] 7.4-10.4 Automated blood neutrophils/100 leukocytes 72 % 42-75 Automated blood lymphocytes/100 leukocytes 22 % 12-44 Blood monocytes/100 leukocytes 5 % 0-12 Automated blood eosinophils/100 leukocytes 1 % 0-10 Automated blood basophils/100 leukocytes 0 % 0-10 Blood neutrophils automated count (number/volume) 9.7 10*3 1.8-7.8 Blood lymphocytes automated count (number/volume) 3.0 10*3 1.0-4.0 Blood monocytes automated count (number/volume) 0.7 10*3 0.0-1.0 Automated eosinophil count 0.2 10*3/uL 0.0-0.3 Automated blood basophil count (count/volume) 0.0 10*3/uL 0.0-0.1 Encounters ACCT No. Visit Date/Time Discharge Status Pt. Type Provider Facility Loc./Unit Complaint [id number] 07/17/2014 15:04:00 07/17/2014 23:59:59 [facility] Outpatient BEV PLEITEZ DO [id number] 02/03/2014 14:50:00 02/03/2014 23:59:59 [facility] Outpatient BEV PLEITEZ DO [id number] 10/25/2013 14:43:00 10/25/2013 23:59:59 [facility] Outpatient JACQUE SASM APRN [id number] 05/30/2013 08:36:00 05/30/2013 23:59:59 [facility] Outpatient NEHA FRANK APRN [id number] 08/11/2012 10:40:00 08/11/2012 23:59:59 [facility] Outpatient BEV PLEITEZ DO [id number] 08/05/2012 12:46:00 08/05/2012 23:59:59 [facility] Outpatient [id number] 09/04/2011 11:59:00 09/04/2011 23:59:59 [facility] Outpatient HEMAL COLEMAN APRN [id number] 03/15/2013 10:19:00 Document Registration [id number] 03/07/2013 10:38:00 Document Registration [id number] 08/27/2017 16:40:00 08/27/2017 23:59:59 [facility] [place] [id number] 08/27/2017 16:40:00 Document Registration [id number] 04/26/2016 13:05:00 Document Registration [id number] 05/28/2018 05:34:00 05/28/2018 23:59:59 CLS Outpatient JENNA MCGARRY DO S [facility] PREOP CHRONIC PELVIC PAIN ,FAMILY HX OF OVARIAN CANCER [id number] 04/10/2018 08:15:00 04/11/2018 17:20:00 DIS Inpatient JENNA MCGARRY DO S [facility] LDRP CONTRACTIONS [id number] 04/07/2018 00:50:00 04/07/2018 06:40:00 DIS Outpatient MANRIQUE ARASELI [facility] WSo CONTRACTIONS [id number] 04/03/2018 23:42:00 04/04/2018 00:30:00 DIS Outpatient MENDY MTZ MD [facility] WSo LABOR [id number] 03/28/2018 22:40:00 03/29/2018 10:24:00 DIS Inpatient JENNA MCGARRY DO S [facility] LDRP CONTRACTIONS [id number] 03/19/2018 12:45:00 03/20/2018 10:52:00 DIS Inpatient FENJENNA MARQUES DO S [facility] LDRP CONTRACTIONS [id number] 12/02/2017 10:34:00 12/02/2017 23:59:59 CLS Outpatient JENNA MCGARRY DO S [facility] RAD Z33.1 [id number] 08/25/2017 15:05:00 08/25/2017 15:38:00 DIS Emergency EHIDI STAHL APRN [facility] ER DENTAL PAIN [id number] 03/13/2016 15:23:00 03/13/2016 16:25:00 DIS Emergency HEIDI STAHL VBA DEVELOPER [facility] ER NECK AND BACK INJ [id number] 03/06/2016 15:14:00 03/06/2016 23:59:59 CLS Outpatient JENNA MCGARRY DO S [facility] RAD ACUTE PELVIC PAIN [id number] 12/06/2015 10:25:00 12/06/2015 10:53:00 DIS Emergency HEIDI STAHL VBA DEVELOPER [facility] ER RIGHT POINTER LAC [id number] 02/22/2015 07:00:00 02/24/2015 15:20:00 DIS Inpatient AMANDAECH JENNA FOUNTAIN S [facility] LDRP LABOR [id number] 02/13/2015 19:04:00 02/13/2015 20:41:00 DIS Outpatient ZEFERINO DO JENNA S [facility] WSo C/O LEAKING FLUID [id number] 02/04/2015 15:19:00 02/04/2015 16:09:00 DIS Outpatient MENDY MTZ MD [facility] WSo CONTRACTIONS [id number] 09/04/2014 17:19:00 09/04/2014 23:59:59 CLS Outpatient KAMILLE SHEPHERD MAZIN [facility] QUICK [id number] 07/29/2014 18:18:00 07/29/2014 19:40:00 DIS Emergency HEIDI STAHL VBA DEVELOPER [facility] ER NAUSEA; 8 WKS [id number] 08/23/2013 17:45:00 08/23/2013 19:52:00 DIS Inpatient AMANDAECH JENNA FOUNTAIN S [facility] WS CONTRACTIONS [id number] 08/14/2013 10:00:00 08/15/2013 11:36:00 DIS Inpatient AMANDAECH DO JENNA S [facility] WS LEAKING FLUID [id number] 06/03/2018 10:45:00 PEN Preadmit ZEFERINO FOUNTAIN JENNA S [facility] SDC CHRONIC PELVIC PAIN,FAMILY HX OF OVARIAN CANCER [id number] 08/29/2010 23:16:00 Document Registration [id number] 02/22/2015 05:03:50 ACT Document Registration
[2018-06-03 09:30] VITALS: BP 118/84
[2018-06-03] MEDS ORDERED: LACTATED RINGERS 1,000 ML IV PRN (09:37)
[2018-06-03 09:40] LABS: BASOPHILS % (AUTO) 1 % (0-10); EOSINOPHILS # (AUTO) 0.1 10^3/uL (0.0-0.3); EOSINOPHILS % (AUTO) 1 % (0-10); HEMATOCRIT 40 % (35-52); HEMOGLOBIN 13.3 G/DL (11.5-16.0); LYMPHOCYTES # (AUTO) 2.5 X 10^3 (1.0-4.0); LYMPHOCYTES % (AUTO) 37 % (12-44); MEAN CORPUSCULAR HEMOGLOBIN 29 PG (25-34); MEAN CORPUSCULAR HGB CONC 33 G/DL (32-36); MEAN CORPUSCULAR VOLUME 86 FL (80-99); MEAN PLATELET VOLUME 10.1 FL (7.4-10.4); MONOCYTES # (AUTO) 0.4 X 10^3 (0.0-1.0); MONOCYTES % (AUTO) 6 % (0-12); NEUTROPHILS # (AUTO) 3.7 X 10^3 (1.8-7.8); NEUTROPHILS % (AUTO) 55 % (42-75); PLATELET COUNT 275 10^3/uL (130-400); RED BLOOD COUNT 4.65 10^6/uL (4.35-5.85); RED CELL DISTRIBUTION WIDTH 16.1 % (10.0-14.5); WHITE BLOOD COUNT 6.6 10^3/uL (4.3-11.0)
[2018-06-03] MEDS ORDERED: BUPIVACAINE 0.25% 30 ML (SENSORCAINE) VIAL ONE (09:40)
[2018-06-03] MEDS ORDERED: ceFAZolin INJECTION 1,000 MG in NS (IVPB) 50 ML IV ONE (09:45)
[2018-06-03] MEDS ORDERED: MIDAZOLAM 2 MG/2 ML (VERSED) VIAL IV ONE (09:45)
[2018-06-03] MEDS ORDERED: proPOfol 200 MG/20 ML (DIPRIVAN) VIAL IV ONE (10:17)
[2018-06-03] MEDS ORDERED: LIDOCAINE PF 2% 5 ML (XYLOCAINE) VIAL ONE (10:17)
[2018-06-03] MEDS ORDERED: ONDANSETRON 4 MG/2 ML (SDV) Z0FRAN ONE (10:17)
[2018-06-03] MEDS ORDERED: DEXAMETHASONE 10 MG/ML (DECADRON) 1 ML VIAL ONE (10:17)
[2018-06-03] MEDS ORDERED: fentaNYL INJECTION 100 MCG/2 ML AMP ONE ×2 (10:18→11:14)
[2018-06-03] MEDS ORDERED: D5 LR IV SOLUTION 1,000 ML IV SCH (10:27)
--- NOTE | 2018-06-03 10:27 | Progress Note-Pre Operative ---
Pre-Operative Progress Note H&P Reviewed The H&P was reviewed, patient examined and no changes noted. Date Seen by Provider: Jun 03, 2018 Time Seen by Provider: 10:35 Date H&P Reviewed: Jun 03, 2018 Time H&P Reviewed: 10:30 Pre-Operative Diagnosis: CPP, dyspareunia, Hx of [facility] 32 [facility] Jun 03, 2018 10:27 am
--- NOTE | 2018-06-03 10:29 | Discharge Inst-Women's Service ---
Discharge Inst-Women's Serv Depart Medication/Instructions New, Converted or Re-Newed RX: RX on Chart Final Diagnosis PO laparoscopy Consults/Follow Up Additional Follow Up: Yes Orders/Referrals Dr. Sahu in 2 weeks Activity Activity: Activity as Tolerated Driving Instructions: You May Drive (do not drive today, or while still requiring narcotic pain meds) NO SMOKING: NO SMOKING Nothing Inside Vagina: No Douching, No [employer], No Tampons Diet Discharge Diet: No Restrictions Symptoms to Report to : Bleeding Excessive, Pain Increased, Fever Over 101 Degrees F, Vaginal Bleeding Increase, Questions/Concerns For Any Problems or Questions: Contact Your Physician Skin/Wound Care Infection Signs and Symptoms: Increased Redness, Foul Odor of Wound, Increased Drainage, Skin Itchy or Has a Rash, Increased Swelling, Temperature Above 101 F Operative Area Clean and Dry: Keep Incision Clean/Dry Stitches/Ute/Dermabond: Dermabond, Care of Stitches Bathing Instructions: JENNA Encarnacion DO Jun 03, 2018 10:29 am
[2018-06-03] MEDS ORDERED: HYDROcodone/APAP 5 MG/325 MG (LORTAB) TAB PO PRN (10:30)
[2018-06-03] MEDS ORDERED: IBUP-1773 PO (10:30)
[2018-06-03] MEDS ORDERED: ONDANSETRON 4 MG/2 ML (SDV) Z0FRAN IVP PRN ×2 (10:30→11:30)
[2018-06-03] MEDS ORDERED: KETOROLAC 30 MG/ML VIAL IVP ONE (10:30)
[2018-06-03] MEDS ORDERED: ACHD5005 PO (10:30)
[2018-06-03] MEDS ORDERED: ROCURONIUM 10 MG/ML 5 ML SYRINGE IV ONE (11:01)
[2018-06-03] MEDS ORDERED: SEVOFLURANE (ULTANE) 15 ML INHAL SOLN ONE ×6 (11:01→11:28)
[2018-06-03] MEDS ORDERED: NEOSTIGMINE 1 MG/ML 5 ML SYRINGE ONE (11:28)
[2018-06-03] MEDS ORDERED: GLYCOPYRROLATE 0.2 MG/ML (ROBINUL) 2 ML VIAL ONE (11:28)
[2018-06-03] MEDS ORDERED: KETOROLAC 30 MG/ML VIAL ONE (11:29)
[2018-06-03] MEDS ORDERED: MEPERIDINE (DEMEROL) INJ 50 MG/ML IVP ONE (11:30)
[2018-06-03] MEDS ORDERED: morphine INJ 10 MG/ML 1ML (SYR OR VIAL) IVP ONE (11:30)
--- NOTE | 2018-06-03 12:01 | Anesthesia-General Post-Op ---
General Patient Condition Mental Status/LOC: Same as Preop Cardiovascular: Satisfactory Nausea/Vomiting: Absent Respiratory: Satisfactory Pain: Controlled Complications: Absent Post Op Complications Complications None Follow Up Care/Instructions Patient Instructions None needed. Anesthesia/Patient Condition Patient Condition Patient is doing well, no complaints, stable vital signs, no apparent adverse anesthesia problems. No complications reported per nursing. LUCRETIA SCHILLING CRNA Jun 03, 2018 12:01
[2018-06-03 13:00] VITALS: BP 102/76
[2018-06-03 13:30] VITALS: BP_SYST 102; BP_SYST 111; BP_DIAS 76
--- NOTE | 2018-06-03 15:02 | OPERATIVE REPORT ---
DATE OF SERVICE: 06/03/2018 PREOPERATIVE DIAGNOSES: 1. A 28-year-old female with chronic pelvic pain. 2. dyspareunia. 3. Family history of ovarian cancer with mother dying in her 30s of ovarian cancer. POSTOPERATIVE DIAGNOSES: 1. A 28-year-old female with chronic pelvic pain. 2. dyspareunia. 3. Family history of ovarian cancer with mother dying in her 30s of ovarian cancer. PROCEDURES: Laparoscopic bilateral risk reducing salpingectomy with cauterization of endometriosis implant of the posterior uterosacral ligament on the left side. SURGEON: Jenna Mcgarry DO [employer] PSYCHOLOGIST: VIRAJ Brown. ANESTHESIA: General endotracheal. ESTIMATED BLOOD LOSS: Minimal. URINE OUTPUT: 300 mL clear at the end of procedure. FLUIDS: 1100 mL lactated Ringer solution. FINDINGS: A grossly normal appearing uterus, bilateral fallopian tubes and bilateral ovaries with two separate endometriosis implants on the posterior cul-de-sac along the uterosacral ligaments. SPECIMENS SENT: Bilateral fallopian tubes. INDICATIONS FOR PROCEDURE: This 28-year-old female is a patient I saw on her 6-week visit, who desired permanent sterilization; however, had more concerns about her family history of ovarian cancer and was wanting removal of all of her gynecologic organs. I discussed with the patient indications for doing so. She did have a mother that had in her 30s of ovarian cancer, which may or may not have a genetic component. We discussed BRCA testing; however, the patient is concerned about the expense, this might cost her out of pocket. Therefore, she is wanting to proceed with something that could potentially be risk reducing if hysterectomy is not indicated. We discussed bilateral risk reducing salpingectomy, which she is agreeable to proceed with. She also discussed chronic pelvic pain and also dyspareunia that she has had since delivery of her last trial. Before this that she has just recovered from, she has not had that pelvic pain before. I discussed with the patient performing a diagnostic laparoscopy for these reasons as well. Risks of the procedure were discussed with the patient in detail including risk of bleeding, infection, damage to surrounding structures including, but not limited to bowel, bladder, ureter, kidneys, possible need for reoperation, recovery timeframe, risk from anesthesia and even . After everything was discussed with the patient in detail, consent was obtained in the preoperative area and the patient was taken to the operating room. OPERATIVE REPORT IN DETAIL: Once in the operating room, general anesthesia was found to be adequate, she was placed in dorsal lithotomy position, prepped and draped in normal sterile fashion. A Kim catheter was placed using sterile technique after a timeout was performed. A weighted speculum was inserted in the patient's vagina. A right angle retractor was used to visualize the cervix, which was grasped at 12 o'clock position using a long Allis clamp. I then sounded the uterine cavity, that was found to be 8 cm. I placed a Kronner uterine manipulator at 8 cm cavity depth deploying the balloon into the endometrial cavity. I then removed all the other instruments from the patient's vagina and took my attention to the abdomen where infraumbilically, I infiltrated the area using 0.25% Marcaine to make a 5 mm incision and directed a Veress needle through the incision until the intraperitoneal placement was confirmed using the saline drop test. I proceeded with insufflation using CO2 gas and opening pressure of 5 mmHg was noted. I proceeded to max pressure of 15 mmHg, at which point, I removed the Veress needle and introduced a 5 mm blunt laparoscopic trocar. Once this was in place, I am able to confirm a trocar placement using a 5 mm laparoscope. I then had the patient placed in steep Trendelenburg after briefly scanning the upper abdominal anatomy, which appears to be normal. Once in steep Trendelenburg, I am able to visualize all my findings as described above. First I cauterized the posterior cul-de-sac endometriosis implants I have described after I placed a 12 mm trocar suprapubically. The skin was infiltrated using 0.25% Marcaine. A 12 mm incision was made and the trocar was placed under direct visualization of laparoscope. Once cauterization is done of these implants, I then proceeded with removing bilateral fallopian tubes. The following dissection was performed bilaterally using a 5 mm LigaSure. Through the 12 mm trocar site, I am able to start at the proximal isthmic portion of the fallopian tube and take the bipolar cautery and transect the isthmic portion of the fallopian tube from its insertion point on the uterus. I then went down the mesosalpinx to its distal connection point at the ampullary portion, bipolar cauterizing and transecting as I go using the LigaSure device. This amputates the fallopian tube from its blood supply and I am able to remove both fallopian tubes through the 12 mm trocar site using a grasper. After which, there was no active bleeding noted from any of my dissection planes. I then copiously irrigated the pelvis using normal saline. Once again, no active bleeding was noted from any of my dissection planes. I then had the patient taken out of steep Trendelenburg and removed the 5 mm trocar under direct visualization of the laparoscope. The 12 mm trocar was left in place to release insufflation and to introduce 10 mL of 0.25% Marcaine for postoperative pain management. I then removed this trocar as well. I then closed the fascia of the 12 mm incision using 0 Vicryl in an interrupted fashion. I then reapproximated the skin using 4-0 Monocryl in interrupted subcuticular. Dermabond was applied to this incision. Dermabond was applied to the 5 mm incision as well. Bandages were then taped over the incisions. The patient tolerated the procedure well and sent to the recovery area in stable condition. Lap and sponge counts were correct at the end of the procedure. Instrument count was correct as well. Kim catheter and Kronner uterine manipulator were removed after the procedure was complete. Job ID: [id number] DocumentID: [id number] Dictated Date: 06/03/2018 11:53:44 Boxing Instructor Date: 06/03/2018 15:02:01 Dictated By: JENNA MCGARRY DO
== END 2018-06-03 13:50 | disposition home or self-care (01) ==
LOC: SDC 09:07
PROVIDERS: ATTEND Obstetrics & Gynecology
DX: N80.3 Endometriosis of pelvic peritoneum (principal); N94.19 Other specified dyspareunia; Z80.41 Family history of malignant neoplasm of ovary; J45.909 Unspecified asthma, uncomplicated; F17.210 Nicotine dependence, cigarettes, uncomplicated
CPT/HCPCS: 36415; 84703; 85025; 86850; 86900; 86901; 87081; 88305; 94664

== ENCOUNTER 2019-05-04 16:32 | Emergency (ER) | payer SELFPAY ==
[~2019-05-04] VITALS: Ht 162.5 cm; Wt 50.0 kg
[~2019-05-04 16:32] MED LIST changes: +IBUP-1773 PO
[2019-05-04] MEDS ORDERED: NS IV 1000 ML 1,000 ML IV SCH (16:51)
[2019-05-04] MEDS ORDERED: RT-ALBUTEROL/IPRATROPIUM 3 ML (DUONEB) VIAL INH ONE (17:00)
[2019-05-04] MEDS ORDERED: KETOROLAC 30 MG/ML VIAL IVP ONE (17:00)
[2019-05-04] MEDS ORDERED: diphenhydrAMINE 25 MG TAB (BENADRYL) PO ONE (17:00)
[2019-05-04] MEDS ORDERED: ACETAMINOPHEN 500 MG TAB (TYLENOL) PO ONE (17:00)
[2019-05-04] MEDS ORDERED: PROCHLORPERAZINE 10 MG/2ML INJ (COMPAZINE) IV ONE (17:00)
--- NOTE | 2019-05-04 17:01 | ED Headache ---
General Stated Complaint: MIGRAINE Source: patient Exam Limitations: no limitations (ELVIN GÓMEZ) History of Present Illness Date Seen by Provider: May 04, 2019 Time Seen by Provider: 16:45 Initial Comments Patient presents to ER with her brother with chief complaint of 5 day long headache or she's had 8-9 out of 10 presently. The pain is throbbing and surrounding both eyes anteriorly. She feels sore in her neck and has had chills but no fever. She's tried Tylenol ibuprofen antihistamines antacids and other lyry-pjd-evxufkf remedies with no success. She doesn't have a history of headaches or migraine headaches. She's never used any migraine medications. She's having some nausea without vomiting. She's had chills but no fever. She says her sister was diagnosed with bronchitis recently. She smokes about 5 cigarettes per day and denies any recreational drug use or alcohol use. She's not on any medications. She had tubal ligation in the past. No other surgeries. She has only mild shortness of breath and wheezing but no cough. About one hour prior to arrival she started having decreased vision in her left eye. She does not have a history of ocular migraines. She said her mother had a brain cancer diagnosed after presenting for migraines new onset. She has a lot of anxiety surrounding CTs due to this. (ELVIN GÓMEZ) Allergies and Home Medications Allergies Coded Allergies: nitrofurantoin (Verified Allergy, Unknown, RASH, 04/10/18) Uncoded Allergies: bandaids (Allergy, Unknown, 02/24/15) Home Medications Albuterol Sulfate 1 Puff Puff, 2 PUFF IH Q4H PRN for WHEEZING 1 PUFF = 90 MCG Prescribed by: CHANDRAKANT PALOMINO on 05/04/191832 Cefdinir 300 Mg Capsule, 300 MG PO BID Prescribed by: CHANDRAKANT PALOMINO on 05/04/191832 Fluticasone Propionate 9.9 Ml [place].susp, 2 SPRAY NSEACH DAILY 2 SPRAYS PER NOSTRIL DAILY X 2 DAYS THEN 1 SPRAY DAILY Prescribed by: CHANDRAKANT PALOMINO on 05/04/191832 Hydrocodone Bit/Acetaminophen 1 Tab Tab, 1 TAB PO Q4H PRN for PAIN-MODERATE Prescribed by: JENNA MCGARRY on 06/03/18 1030 Ibuprofen 600 Mg Tablet, 600 MG PO Q6H Prescribed by: JENNA MCGARRY on 06/03/18 1030 Patient Home Medication List Home Medication List Reviewed: Yes (ELVIN GÓMEZ) Review of Systems Review of Systems Constitutional: No chills, No fever Eyes: Blindness; Denies Blurred Vision, Denies Drainage Ears, Nose, Mouth, Throat: denies ear pain, denies ear discharge Respiratory: No cough, No short of breath Cardiovascular: No chest pain, No edema Gastrointestinal: No abdominal pain, No constipation Genitourinary: No discharge, No dysuria : No (tubal ligation) Musculoskeletal: No back pain; neck pain (ELVIN GÓMEZ) Past Fiywxzj-Crtvoa-Vexgwi Hx Patient Social History Alcohol Use: Denies Use Recreational Drug Use: No Smoking Status: Current Everyday Smoker Type Used: Cigarettes (0.25) Recent Foreign Travel: No Contact w/Someone Who Travel: No Recent Hopitalizations: No (ELVIN GÓMEZ) Immunizations Up To Date Tetanus Booster (TDap): Unknown PED Vaccines UTD: Yes (ELVIN GÓMEZ) Seasonal Allergies Seasonal Allergies: Yes (ELVIN GÓMEZ) Past Medical History Surgeries: No Respiratory: Yes Asthma Cardiac: No Neurological: No Reproductive Disorders: Yes (CPP, ) Sexually Transmitted Disease: Yes (hx trich treated) HIV/AIDS: No Genitourinary: No Gastrointestinal: No Musculoskeletal: Yes (neck pain, osteopenia) Arthritis, Chronic Back Pain Endocrine: No HEENT: No Cancer: No Did You Recieve Any Treatments: No Psychosocial: Yes Eating Disorder, Sleep Difficulties, Anxiety, Bipolar, Depression Integumentary: Yes Eczema Blood Disorders: No Adverse Reaction/Blood Tranf: No (ELVIN GÓMEZ) Family Medical History Alcoholism 19 FATHER 19 MOTHER (uncles) Arthritis 19 MOTHER Asthma 19 MOTHER Cardiovascular disease 19 MOTHER (heart murmur) Headache disorder 19 MOTHER Hypertension 19 MOTHER Neoplasm 19 MOTHER Ovarian cancer Psychosocial problem 19 MOTHER Respiratory disorder 19 MOTHER (COPD) Seizure disorder 19 MOTHER No Family History of: AIDS Abdominal aortic aneurysm Edmar's disease Alzheimer's disease Aphasia Cancer of mouth Cataracts Colon cancer Completed stroke Congenital disease Congenital heart disease Coronary thrombosis Cystic fibrosis Deafness or hearing loss Dementia Diabetes mellitus Drug abuse Dysphasia Fibrocystic disease of breast Gastroenteritis Glaucoma Hypercholesterolemia Infertility Kidney disease Myocardial infarction Not obtainable due to adoption Osteoporosis Parkinson's disease Prostate cancer Severe allergy Thyroid disease Tuberculosis Visual disorder Physical Exam Vital Signs Vital Signs - First Documented 05/04/19 16:37 Temp 36.6 Pulse 99 Resp 18 B/P (MAP) 121/82 (95) Pulse Ox 100 O2 Delivery Room Air (CHANDRAKANT FOX MD) Vital Signs Capillary Refill : (ELVIN GÓMEZ) Height, Weight, BMI Height: 5'4.00" Weight: 109lbs. 0.0oz. 49.244258qk; 18.7 BMI Method:Estimated General Appearance: mild distress, thin HEENT: PERRL/EOMI, normal ENT inspection, TMs normal, pharynx normal Neck: full range of motion, supple, normal inspection, tender lateral (Mildly), other (no nuchal rigidity or meningismus) Cardiovascular: normal peripheral pulses, regular rate, rhythm; No tachycardia (95) Respiratory: no respiratory distress, no accessory muscle use, decreased breath sounds, wheezing (slight expiratory) Psychiatric: alert, oriented x 3; No lethargic; other (GCS 15. Gross vision intact able to count fingers on a hand individually bilateral eyes) Crainal Nerves: normal hearing, normal speech, PERRL Coordination/Gait: normal finger to nose, normal gait Motor/Sensory: no motor deficit, no sensory deficit, no pronator drift Skin: normal color, warm/dry (ELVIN GÓMEZ) Progress/Results/Core Measures Results/Orders Lab Results Laboratory Tests Test 05/04/19 16:45 05/04/19 16:50 Range/Units White Blood Count 10.3 4.3-11.0 10^3/uL Red Blood Count 4.43 4.35-5.85 10^6/uL Hemoglobin 13.0 11.5-16.0 G/DL Hematocrit 38 35-52 % Mean Corpuscular Volume 86 80-99 FL Mean Corpuscular Hemoglobin 29 25-34 PG Mean Corpuscular Hemoglobin Concent 34 32-36 G/DL Red Cell Distribution Width 14.6 H 10.0-14.5 % Platelet Count 321 130-400 10^3/uL Mean Platelet Volume 10.4 7.4-10.4 FL Neutrophils (%) (Auto) 73 42-75 % Lymphocytes (%) (Auto) 22 12-44 % Monocytes (%) (Auto) 5 0-12 % Eosinophils (%) (Auto) 1 0-10 % Basophils (%) (Auto) 0 0-10 % Neutrophils # (Auto) 7.5 1.8-7.8 X 10^3 Lymphocytes # (Auto) 2.2 1.0-4.0 X 10^3 Monocytes # (Auto) 0.5 0.0-1.0 X 10^3 Eosinophils # (Auto) 0.1 0.0-0.3 10^3/uL Basophils # (Auto) 0.0 0.0-0.1 10^3/uL Sodium Level 139 135-145 MMOL/L Potassium Level 3.8 3.6-5.0 MMOL/L Chloride Level 105 98-107 MMOL/L Carbon Dioxide Level 24 21-32 MMOL/L Anion Gap 10 5-14 MMOL/L Blood Urea Nitrogen 9 7-18 MG/DL Creatinine 0.86 0.60-1.30 MG/DL Estimat Glomerular Filtration Rate > 60 BUN/Creatinine Ratio 10 Glucose Level 91 70-105 MG/DL Calcium Level 9.5 8.5-10.1 MG/DL Corrected Calcium 8.5-10.1 MG/DL Total Bilirubin 1.0 0.1-1.0 MG/DL Aspartate Amino Transf (AST/SGOT) 18 5-34 U/L Alanine Aminotransferase (ALT/SGPT) 13 0-55 U/L Alkaline Phosphatase 66 40-136 U/L C-Reactive Protein High Sensitivity 0.09 0.00-0.50 MG/DL Total Protein 7.5 6.4-8.2 GM/DL Albumin 4.6 H 3.2-4.5 GM/DL Urine Color YELLOW Urine Clarity CLEAR Urine pH 8 5-9 Urine Specific [place] 1.015 L 1.016-1.022 Urine Protein 2+ H NEGATIVE Urine Glucose (UA) NEGATIVE NEGATIVE Urine Ketones 3+ H NEGATIVE Urine Nitrite POSITIVE H NEGATIVE Urine Bilirubin NEGATIVE NEGATIVE Urine Urobilinogen NORMAL NORMAL MG/DL Urine Leukocyte Esterase 3+ H NEGATIVE Urine RBC (Auto) NEGATIVE NEGATIVE Urine RBC NONE /HPF Urine WBC >100 H /HPF Urine Crystals NONE /LPF Urine Bacteria LARGE H /HPF Urine Casts NONE /LPF Urine Mucus SMALL H /LPF Urine Culture Indicated YES Urine Opiates Screen NEGATIVE NEGATIVE Urine Oxycodone Screen NEGATIVE NEGATIVE Urine Methadone Screen NEGATIVE NEGATIVE Urine Propoxyphene Screen NEGATIVE NEGATIVE Urine Barbiturates Screen NEGATIVE NEGATIVE Ur Tricyclic Antidepressants Screen NEGATIVE NEGATIVE Urine Phencyclidine Screen NEGATIVE NEGATIVE Urine Amphetamines Screen NEGATIVE NEGATIVE Urine Methamphetamines Screen NEGATIVE NEGATIVE Urine Benzodiazepines Screen NEGATIVE NEGATIVE Urine Cocaine Screen NEGATIVE NEGATIVE Urine Cannabinoids Screen NEGATIVE NEGATIVE (CHANDRAKANT FOX MD) Medications Given in ED Current Medications Medications Dose Ordered Sig/Tavo Route Start Time Stop Time Status Last Admin Dose Admin Acetaminophen 1,000 mg ONCE ONCE PO 05/04/19 17:00 05/04/19 17:01 DC 05/04/19 17:04 1,000 MG Albuterol/ Ipratropium 3 ml ONCE ONCE INH 05/04/19 17:00 05/04/19 17:01 DC 05/04/19 17:57 3 ML Cephalexin HCl 500 mg ONCE ONCE PO 05/04/19 17:45 05/04/19 17:46 DC 05/04/19 18:09 500 MG Diphenhydramine HCl 25 mg ONCE ONCE PO 05/04/19 17:00 05/04/19 17:01 DC 05/04/19 17:05 25 MG Ketorolac Tromethamine 30 mg ONCE ONCE IVP 05/04/19 17:00 05/04/19 17:01 DC 05/04/19 17:06 30 MG Prochlorperazine Edisylate 10 mg ONCE ONCE IV 05/04/19 17:00 05/04/19 17:01 DC 05/04/19 17:09 10 MG (CHANDRAKANT FOX MD) Vital Signs/I&O 05/04/19 16:37 Temp 36.6 Pulse 99 Resp 18 B/P (MAP) 121/82 (95) Pulse Ox 100 O2 Delivery Room Air (CHANDRAKANT FOX MD) Progress Progress Note : Time: 17:01 Progress Note Plan to address her pain and then anxiety if necessary before broaching the topic of a CT of her head. Give her a DuoNeb and obtain some basic labs and give a liter of fluids. Red flags include persistent headache with visual changes and worse headache of her life time but not thunderclap or sudden onset. No previous history of similar headaches. (ELVIN GÓMEZ) Progress Note : Time: 18:35 Progress Note Care of this patient was assumed from Dr. Gómez at shift change. CT and x-ray results were reviewed. I discussed results with the patient. Patient is feeling significantly improved with treatments provided by Dr. Gómez including IV fluids, Compazine, Toradol, nebulizer treatment, Tylenol, and Benadryl. We reviewed all of the discharge instructions at length. We worked with the patient to find affordable prescriptions at an appropriate pharmacy. Patient was educated on the nature of migraine, COPD, etc. (CHANDRAKANT FOX MD) Diagnostic Imaging Diagonstic Imaging: Xray Plain Films/CT/US/NM/MRI: chest (2v) Reviewed: Reviewed by Me (ELVIN GÓMEZ) Comments CT head was viewed by me and report reviewed. See report below: NAME: ROSANA KNIGHT [facility] REC#: [id number] PT STATUS: REG ER : 1990 PHYSICIAN: ELVIN GÓMEZ MD ADMIT DATE: 05/04/19/ER Draft Date of Exam:05/04/19 CT HEAD WO INDICATION: Persistent headache x5 days. Noncontrast brain CT is performed and compared with 03/13/2016. FINDINGS: There were no extra-axial fluid collections. No intracranial hemorrhage. No intracranial mass or mass effect. No midline shift. The ventricles are normal in size and position. There are no acute parenchymal abnormalities in the brain. Visualized portions of the orbits are normal. Calvarial windows show no bony abnormalities. There is partial opacification of the right frontal sinus and near complete opacification of the left frontal sinus. There is partial opacification of the ethmoid air cells. There is a fluid level in the left maxillary sinus. There is mucosal thickening in both maxillary sinuses. The sphenoid sinuses are clear. Visualized portions of the mastoid air cells are well aerated. IMPRESSION: No intracranial abnormality is seen. There is evidence of sinus disease as described above, most prominent in the frontal sinuses and left maxillary sinus. Dictated on workstation # [id number] Dict: 05/04/19 1757 Trans: 05/04/[address] [place] [address] [id number] Interpreted by: JALEN BALDWIN MD Diagonstic Imaging: CT Plain Films/CT/US/NM/MRI: head (CHANDRAKANT FOX MD) Departure Impression Primary Impression: Migraine headache Qualified Codes: G43.109 - Migraine with aura, not intractable, without status migrainosus Additional Impressions: Sinusitis, acute Qualified Codes: J01.90 - Acute sinusitis, unspecified Urinary tract infection Qualified Codes: N39.0 - Urinary tract infection, site not specified Hypovolemia Wheezing Disposition: 01 HOME, SELF-CARE Condition: Improved Departure-Patient Inst. Decision time for Depature: 18:24 (CHANDRAKANT FOX MD) Referrals: [facility] [place] (PCP/Family) Primary Care Physician Patient Instructions: COPD Including Emphysema (DC), Migraine Headaches in Adults, Quitting Smoking, Sinusitis in Adults, Urinary Tract Infections in Adults Add. Discharge Instructions: Drink plenty of clear liquids. As best you can please rest in a quiet, calm, dark environment for the remainder of the night. Complete your antibiotics as prescribed. This antibiotic should treat both sinus infection and urinary tract infection. If your sinus symptoms have not resolved by the time he completed 10 days of antibiotics, please obtain the refill provided with a prescription. Follow-up with your primary care team next week. Have them review urine culture results to ensure you're taking an antibiotic appropriate for your urinary tract infection. The nasal steroid spray should help with sinus congestion and improve your symptoms of wheezing and COPD. It may take several days before you notice improvement using the nasal steroid spray. Is important that you work toward quitting smoking promptly. Please seek help from your primary care provider if needed. Quitting smoking will drastically improve your overall health, especially the sinus disease and developing COPD. Return to the emergency room if you have worsening symptoms. See attached information packets about your conditions. Scripts Albuterol Sulfate (PROAIR HFA) 1 Puff Puff 2 PUFF IH Q4H PRN for WHEEZING, #1 PUFF 1 PUFF = 90 MCG Prov: CHANDRAKANT FOX MD 05/04/19 Fluticasone Propionate (Flonase Allergy Relief) 9.9 Ml [place].susp 2 SPRAY NSEACH DAILY, #1 EACH 2 SPRAYS PER NOSTRIL DAILY X 2 DAYS THEN 1 SPRAY DAILY Prov: CHANDRAKANT FOX MD 05/04/19 Cefdinir (Cefdinir) 300 Mg Capsule 300 MG PO BID, #20 CAP 1 Refill Prov: CHANDRAKANT FOX MD 05/04/19 ELVIN GÓMEZ May 04, 2019 17:01 CHANDRAKANT FOX MD May 04, 2019 18:13
[2019-05-04 17:03] LABS: BASOPHILS % (AUTO) 0 % (0-10); EOSINOPHILS # (AUTO) 0.1 10^3/uL (0.0-0.3); EOSINOPHILS % (AUTO) 1 % (0-10); HEMATOCRIT 38 % (35-52); LYMPHOCYTES # (AUTO) 2.2 X 10^3 (1.0-4.0); LYMPHOCYTES % (AUTO) 22 % (12-44); MEAN CORPUSCULAR HEMOGLOBIN 29 PG (25-34); MEAN CORPUSCULAR HGB CONC 34 G/DL (32-36); MEAN CORPUSCULAR VOLUME 86 FL (80-99); MEAN PLATELET VOLUME 10.4 FL (7.4-10.4); MONOCYTES # (AUTO) 0.5 X 10^3 (0.0-1.0); MONOCYTES % (AUTO) 5 % (0-12); NEUTROPHILS # (AUTO) 7.5 X 10^3 (1.8-7.8); NEUTROPHILS % (AUTO) 73 % (42-75); PLATELET COUNT 321 10^3/uL (130-400); RED CELL DISTRIBUTION WIDTH 14.6 % (10.0-14.5); WHITE BLOOD COUNT 10.3 10^3/uL (4.3-11.0)
[2019-05-04 17:19] LABS: BILIRUBIN,URINE NEGATIVE (NEGATIVE); CLARITY,URINE CLEAR; COLOR,URINE YELLOW; GLUCOSE, URINE (UA) NEGATIVE (NEGATIVE); KETONES,URINE 3+ (NEGATIVE); LEUKOCYTE ESTERASE ,URINE 3+ (NEGATIVE); NITRITE,URINE POSITIVE (NEGATIVE); PH,URINE 8 (5-9); PROTEIN,URINE 2+ (NEGATIVE); UROBILINOGEN,URINE NORMAL (NORMAL)
[2019-05-04 17:23] LABS: ALANINE AMINOTRANSFERASE 13 U/L (0-55); ALBUMIN 4.6 GM/DL (3.2-4.5); ALKALINE PHOSPHATASE 66 U/L (40-136); BUN/CREATININE RATIO 10; CALCIUM 9.5 MG/DL (8.5-10.1); CARBON DIOXIDE 24 MMOL/L (21-32); CHLORIDE 105 MMOL/L (98-107); CREATININE SERUM 0.86 MG/DL (0.60-1.30); GFR ESTIMATED > 60; GLUCOSE 91 MG/DL (70-105); POTASSIUM 3.8 MMOL/L (3.6-5.0); SODIUM 139 MMOL/L (135-145); TOTAL PROTEIN 7.5 GM/DL (6.4-8.2)
[2019-05-04 17:38] LABS: BACTERIA,URINE LARGE /HPF; WBC,URINE >100 /HPF
[2019-05-04 17:40] LABS: AMPHETAMINE SCREEN, URINE NEGATIVE (NEGATIVE); BARBITURATE SCREEN URINE NEGATIVE (NEGATIVE); BENZODIAZEPINES SCREEN URINE NEGATIVE (NEGATIVE); CANNABINOID SCREEN, URINE NEGATIVE (NEGATIVE); COCAINE SCREEN URINE NEGATIVE (NEGATIVE); METHADONE STAT NEGATIVE (NEGATIVE); METHAMPHETAMINE SCREEN URINE S NEGATIVE (NEGATIVE); OPIATE SCREEN URINE NEGATIVE (NEGATIVE); OXYCODONE STAT NEGATIVE (NEGATIVE); PROPOXYPHENE STAT NEGATIVE (NEGATIVE); TRICYCLIC ANTIDEPRESSANTS SCRE NEGATIVE (NEGATIVE)
[2019-05-04] MEDS ORDERED: CEPHALEXIN 250 MG (KEFLEX) CAP PO ONE (17:45)
--- NOTE | 2019-05-04 18:00 | Diagnostic Imaging Report ---
INDICATION: Persistent headache x5 days. Noncontrast brain CT is performed and compared with 03/13/2016. FINDINGS: There were no extra-axial fluid collections. No intracranial hemorrhage. No intracranial mass or mass effect. No midline shift. The ventricles are normal in size and position. There are no acute parenchymal abnormalities in the brain. Visualized portions of the orbits are normal. Calvarial windows show no bony abnormalities. There is partial opacification of the right frontal sinus and near complete opacification of the left frontal sinus. There is partial opacification of the ethmoid air cells. There is a fluid level in the left maxillary sinus. There is mucosal thickening in both maxillary sinuses. The sphenoid sinuses are clear. Visualized portions of the mastoid air cells are well aerated. IMPRESSION: No intracranial abnormality is seen. There is evidence of sinus disease as described above, most prominent in the frontal sinuses and left maxillary sinus. Dictated by: Dictated on workstation # [id number]
--- NOTE | 2019-05-04 18:21 | Diagnostic Imaging Report ---
Indication: Head pain. Findings: There is air trapping and COPD chronic. The lungs are clear. No failure, effusion or pneumothorax present. Impression: No acute-appearing abnormality. Dictated by: Dictated on workstation # [id number]
[2019-05-04] MEDS ORDERED: CEFD300C3 PO (18:33)
[2019-05-04] MEDS ORDERED: FLUT9.9S NSEACH (18:33)
[2019-05-04] MEDS ORDERED: RT-ALBUINH IH (18:33)
[2019-05-04 18:39] VITALS: BP 120/79
== END 2019-05-04 18:39 | disposition home or self-care (01) ==
LOC: EDUNIT# 16:32 → ER 16:33
DX: G43.909 Migraine, unspecified, not intractable, without status migrainosus (principal); J01.90 Acute sinusitis, unspecified; N39.0 Urinary tract infection, site not specified; E86.1 Hypovolemia; R06.2 Wheezing; F41.9 Anxiety disorder, unspecified; J45.909 Unspecified asthma, uncomplicated; F31.9 Bipolar disorder, unspecified; F17.210 Nicotine dependence, cigarettes, uncomplicated; Z88.8 Allergy status to other drugs, medicaments and biological substances; Z80.8 Family history of malignant neoplasm of other organs or systems; Z82.49 Family history of ischemic heart disease and other diseases of the circulatory system; Z80.41 Family history of malignant neoplasm of ovary
CPT/HCPCS: 36415; 70450; 71046; 80053; 80306; 81000; 84703; 85025; 86141; 87088; 96361; 96374; 96375